=== PATIENT | male | born 1960 | race Caucasian/White ===

== ENCOUNTER 2016-08-28 09:58 | Emergency (ER) ==
[2016-08-28] MEDS ORDERED: LASIX PO ONE (10:34)
[2016-08-28] MEDS ORDERED: CATAPRES PO ONE (10:34)
--- NOTE | 2016-08-28 10:36 | PROVIDER DOCUMENTATION ---
HPI-General Adult - General Source: patient, family - History of Present Illness -Gen Adult Nature of Presenting Problems: Pt is 56 y/o M presents to the ED with elevated BP. Pt states BP was high at work two days ago. Pt states having a TORRES for one week now. Pt states having N this am. Pt states 2 episodes of V. Pt denies kidney failure. Location of Pain/Injury: reports: head Pain Radiation: reports: no radiation Quality of Pain: reports: aching Severity: reports: mild Onset/Duration: reports: 1 week ago Timing: reports: still present, intermittent Context/Activities at Onset: reports: light activity Modifying Factors: improves with: nothing Associated Symptoms: reports: headaches, nausea, vomiting. denies: anxiety, arm pain, back/neck pain, chest pain, constipation, cough, diaphoresis, diarrhea , dizziness, EENT symptoms, fatigue, fever/chills, genitourinary problems, heartburn, joint pain, loss of appetite, malaise, muscle aches, sinus congestion /drainage, rash, seizure, shortness of breath, sensory/motor loss, pain with inspiration, swelling/mass in abdomen, syncope, weakness, trouble walking Similar Symptoms Previously?: Yes Recently seen or treated by another doctor?: No <Betsy Cooper - Last Filed: 08/28/16 13:52> <Isai Ly - Last Filed: 08/28/16 13:57> - General Chief Complaint: B/P Problems Stated Complaint: NAUSEA/HEADACHE Time Seen by Provider: 08/28/16 10:30 Allergies/Adverse Reactions: Patient Allergies Allergy/AdvReac Type Severity Reaction Status Date / Time No Known Allergies Allergy Verified 08/28/16 10:20 Home Medications: Home Medication List Medication Instructions Recorded Confirmed Last Taken Type Acetaminophen with Codeine 1 each PO Q4H PRN PRN #20 tablet 08/28/16 Unknown Rx [Tylenol with Codeine #3] Amlodipine [Norvasc] 5 mg PO DAILY #30 tablet 08/28/16 Unknown Rx Lisinopril 20 mg PO DAILY #30 tablet 08/28/16 Unknown Rx Review of Systems - Adult - REVIEW OF SYSTEMS - ADULT Constitutional: denies: chills, fever Eyes: denies: blurred vision, double vision Ears, Nose, Mouth & Throat: denies: ear pain, nose pain, throat pain Cardiovascular: denies: chest pain, heart murmur, irregular heart rate Respiratory: denies: cough, shortness of breath, wheezing Gastrointestinal: reports: nausea, vomiting. denies: abdominal pain, diarrhea Genitourinary: denies: dysuria, hematuria Musculoskeletal: denies: bone pain, joint pain, neck pain Integumentary: denies: hives, itching Neurological: reports: headache/migraines (TORRES). denies: dizziness/vertigo Psychiatric: reports: no symptoms reported Endocrine: reports: no symptoms reported Hematologic/Lymphatic: reports: no symptoms reported Allergic/Immunologic: reports: no symptoms reported All Other Systems: Reviewed and Negative <Betsy Cooper - Last Filed: 08/28/16 13:52> Past History - Adult - PAST MEDICAL HISTORY-ADULT Review of Records: reports: Nursing Assessment Review, Medications Reviewed, Social history reviewed & non-contributory. Major Childhood Illnesses: reports: denies history Cardiovascular: reports: HTN Respiratory: reports: denies history Gastrointestinal: reports: denies history Obstetrical/Gynecological: reports: denies history Genitourinary: reports: denies history Musculoskeletal: reports: denies history Neurological: reports: denies history Endocrine/Immune: reports: denies history Other Conditions: reports: denies history - PRIOR SURGERIES/PROCEDURES Surgical/Procedure History: reports: appendectomy - IMMUNIZATION STATUS Childhood Immunizations: See Nurse Assessment Flu Vaccine: See Nurse Assessment - FAMILY HISTORY Family History: reviewed, not pertinent - SOCIAL HISTORY Smoking: cigarettes, greater than 1 pack/day Provider spent 3-5 mins advising pt. on dangers of tobacco.: Discussed manners to quit use, and f/u contacts for add'l counseling. Substance Use: denies Living Situation: family <Betsy Cooper - Last Filed: 08/28/16 13:52> Physical Exam-General - PHYSICAL EXAM-ADULT Initial Vital Signs Reviewed: Yes - CONSTITUTIONAL General Appearance: appears well, alert, no apparent distress - EYES Eyes: PERRL/EOMI, pink conjunctivae, fundi clear, no AV nicking - HEAD, EARS, NOSE, MOUTH & THROAT HENMT: normocephalic/atraumatic, moist mucous membranes, normal ENT inspection, TMs normal, pharynx normal - NECK Neck: non-tender, full range of motion, supple, normal inspection - RESPIRATORY Respiratory: chest non-tender, lungs clear, normal breath sounds, no pleuratic chest pain, no respiratory distress, no accessory muscle use - CARDIOVASCULAR Cardiovascular: normal peripheral pulses, regular rate, rhythm, no edema, no gallop, no JVD, no murmur - GASTROINTESTINAL (ABDOMEN) Abdominal Exam: normal bowel sounds, non tender, soft, no organomegaly, no pulsatile mass - LYMPHATIC Lymphatic: no adenopathy - MUSCULOSKELETAL Back Exam: normal inspection, no CVA tenderness, no vertebral tenderness Extremity: normal range of motion, non-tender, normal gait, normal inspection, no calf tenderness, normal capillary refill, pelvis stable, pedal edema ( bilateral) - SKIN Integumentary: normal color, normal turgor, warm/dry - NEUROLOGIC Neurologic: grossly normal - PSYCHIATRIC Psych/Mental Status: normal mood/affect, oriented x 3 <Betsy Cooper - Last Filed: 08/28/16 13:52> Progress - PLAN OF CARE/RESULTS Progress/Plan/Lab Results: Orders Category Date Time Status cxr [CHEST-2 VIEWS] [RAD] Stat Exams 08/28/16 10:32 Ordered CBC WITH DIFF [HEME] Stat Lab 08/28/16 10:31 Ordered COMPREHENSIVE METABOLIC PANEL [CHEM] Stat Lab 08/28/16 10:31 Ordered UA [URINALYSIS DIPSTICK ONLY PL] [URINALYSIS] Stat Lab 08/28/16 10:31 Uncollected Clonidine [Catapres] Med 08/28/16 10:34 Discontinued 0.2 mg PO NOW ONE Furosemide [Lasix] Med 08/28/16 10:34 Discontinued 40 mg PO NOW ONE EKG [EKG] Routine Ther 08/28/16 10:32 Ordered Vital Signs - 24 hr 08/28/16 08/28/16 10:16 10:31 Temperature 97.4 F L Pulse Rate 61 Respiratory 17 Rate Blood Pressure 193/105 194/107 O2 Sat by Pulse 99 Oximetry Laboratory Tests 08/28/16 08/28/16 08/28/16 11:02 11:02 11:30 WBC 8.42 RBC 4.79 Hgb 15.6 Hct 44.8 MCV 93.5 MCH 32.6 H MCHC 34.8 RDW Std Deviation 12.2 Plt Count 56 L MPV 11.2 H Immature Gran % (Auto) 0.1 Neut % (Auto) 60.6 Lymph % (Auto) 30.6 Turner % (Auto) 6.8 Eos % (Auto) 1.5 Baso % (Auto) 0.4 Immature Gran # (Auto) 0.01 Neut # (Auto) 5.10 Lymph # (Auto) 2.58 Turner # (Auto) 0.57 Eos # (Auto) 0.13 Baso # (Auto) 0.03 Sodium 138 Potassium 3.6 Chloride 101 Carbon Dioxide 25 Anion Gap 12 BUN 14 Creatinine 0.8 Estimated GFR/1.73 m2 > 60 BUN/Creatinine Ratio 18 Glucose 105 H Calculated Osmolality 277 Calcium 8.8 Total Bilirubin 0.70 AST 24 ALT 21 Alkaline Phosphatase 74 Total Protein 7.4 Albumin 4.3 Globulin 3.0 Albumin/Globulin Ratio 1.0 Urine Source VOIDED Urine Color YELLOW Urine Clarity CLEAR Urine pH 7.0 Ur Specific [place] 1.015 Urine Protein TRACE A Urine Ketones NEGATIVE Urine Blood NEGATIVE Urine Nitrite NEGATIVE Urine Bilirubin NEGATIVE Urine Urobilinogen NORMAL Urine WBC NEGATIVE Urine Glucose NEGATIVE - EKG 1 Time of EKG reading by physician:: 10:56 EKG Read and Signed by:: Isai Ly EKG Interpretation (*Must complete 3 of following elements*): Abnormal Rate: 55 Rhythm: sinus bradycardia Comments: nonspecific T wave abnormality; poor R wave progression - XRAY 1 XRAY: Bilateral XRAY Study: Chest Impression: Abnormal XRAY Interpretation: borderline cardiomegaly. <Betsy Cooper - Last Filed: 08/28/16 13:52> Departure <Betsy Cooper - Last Filed: 08/28/16 13:52> - Departure Time of Disposition Order: 13:54 Certified Medical Emergency: Emergent <Isai Ly - Last Filed: 08/28/16 13:57> - Departure DIAGNOSIS: HBP (high blood pressure) Qualifiers: Hypertension type: essential hypertension Qualified Code(s): I10 - Essential ( primary) hypertension Headache Qualifiers: Headache type: unspecified Disposition: HOME 01 Condition: Stable Additional Instructions: ED Follow Up Instructions: You have been treated by a care provider in the Emergency Department. These instructions are being provided to you so you can have an understanding of how to care for yourself upon discharge. Upon discharge from the Emergency Department, you are responsible for making arrangements for follow-up care by a physician of your choice. Take all prescribed medications as directed. Return to the Emergency Department immediately for any new or worsening symptoms. You may call the Physician Referral phone number at [phone] to obtain a list of Physicians who are taking new patients. Prescriptions: Acetaminophen with Codeine [Tylenol with Codeine #3] 1 each PO Q4H PRN PRN #20 tablet PRN Reason: Pain Lisinopril 20 mg PO DAILY #30 tablet Amlodipine [Norvasc] 5 mg PO DAILY #30 tablet Instructions: Migraine Headache, [id number] Attestation - Scribe Verification/Attestation Scribe:: Betsy Cooper Acting as Scribe for:: Isai Ly Scribe documention review:: This chart was documented by a scribe and accurately reflects the service the provider performed and the decisions made by the provider. <Betsy Cooper - Last Filed: 08/28/16 13:52> Physician Attestation
[2016-08-28 11:07] LABS: MANUAL DIFF NEEDED? NO
--- NOTE | 2016-08-28 11:11 | EKG Report ---
Test Performed on : 08/28/2016 10:56:06 AM Test Reason : emboli Blood Pressure : / mmHG Vent. Rate : 055 BPM Atrial Rate : 055 BPM P-R Int : 154 ms QRS Dur : 088 ms QT Int : 452 ms P-R-T Axes : 041 029 092 degrees QTc Int : 432 ms Sinus bradycardia. Nonspecific T wave abnormality Abnormal ECG When compared with ECG of 19-MAR-2015 21:52, Vent. rate has decreased BY 33 BPM T wave inversion now evident in Lateral leads Unconfirmed Result
[2016-08-28] MEDS ORDERED: LASIX IV ONE (11:24)
[2016-08-28 11:27] LABS: BASO% 0.4 % (0.0-0.8); EOS# 0.13 X1000 (0.0-0.7); EOS% 1.5 % (0.0-10.0); HEMATOCRIT 44.8 % (42.0-52.0); HEMOGLOBIN 15.6 g/dL (14.0-18.0); IMM GRAN# 0.01 X1000 (0.0-0.04); IMM GRAN% 0.1 % (0.0-0.5); LYMPH# 2.58 X1000 (1.2-3.4); LYMPH% 30.6 % (20.5-51.1); MCH 32.6 PG (27-31); MCHC 34.8 g/dL (33-37); MCV 93.5 FL (81-99); MONO# 0.57 X1000 (0.11-0.59); MONO% 6.8 % (1.7-9.3); MPV 11.2 FL (7.4-10.4); NEUT% 60.6 % (42.2-75.2); PLT 56 X1000 (130-400); RBC 4.79 XMIL (4.7-6.1)
[2016-08-28 11:41] LABS: AGAP 12; ALBUMIN 4.3 g/dL (3.5-5.0); ALKALINE PHOSPHATASE 74 U/L (32-122); BUN 14 mg/dL (8-22); CALCIUM 8.8 mg/dL (8.8-10.2); CHLORIDE 101 mmol/L (98-107); COSMO 277; GOT 24 U/L (10-34); GPT 21 U/L (10-44); POTASSIUM 3.6 mmol/L (3.5-5.1); SODIUM 138 mmol/L (136-145); TCO2 25 mmol/L (25-35); TOTAL PROTEIN 7.4 g/dL (6.3-8.3)
[2016-08-28 11:41] LABS: URINE SOURCE VOIDED
--- NOTE | 2016-08-28 11:52 | Diag Imaging Result Document ---
PROCEDURE NAME: CHEST-2 VIEWS - 08/28/2016 CHEST X-RAY, 2 VIEWS: COMPARISON: None. FINDINGS: There is borderline cardiomegaly. Pulmonary vascularity is normal. No focal infiltrates, pneumothorax, or pleural effusion. IMPRESSION: Borderline cardiomegaly.
[2016-08-28 12:14] LABS: BILIRUBIN URINE NEGATIVE (NEGATIVE); BLOOD URINE NEGATIVE (NEGATIVE); CLARITY CLEAR (CLEAR); COLOR YELLOW; GLUCOSE URINE NEGATIVE (NEGATIVE); LEUKOCYTES URINE NEGATIVE (NEGATIVE); NITRITE URINE NEGATIVE (NEGATIVE); PROTEIN URINE TRACE mg/dL (NEGATIVE); SP GRAVITY URINE 1.015; UROBILINOGEN URINE NORMAL
[2016-08-28] MEDS ORDERED: PHENERGAN PO ONE (13:15)
[2016-08-28] MEDS ORDERED: NORCO-5 PO ONE (13:16)
[2016-08-28] MEDS ORDERED: LABETALOL IV ONE (13:16)
[2016-08-28 13:54] VITALS: BP 162/92
== END 2016-08-28 14:11 | disposition home or self-care (01) ==
LOC: P.ED 09:58
DX: I10 Essential (primary) hypertension (principal); R51 Headache; R11.2 Nausea with vomiting, unspecified; R94.31 Abnormal electrocardiogram [ECG] [EKG]; R60.9 Edema, unspecified; F17.210 Nicotine dependence, cigarettes, uncomplicated; Z71.6 Tobacco abuse counseling
CPT/HCPCS: 36415; 71020; 80053; 81003; 85025; 93005; 96374; 96375; J1940

== ENCOUNTER 2016-08-29 14:29 | Emergency (ER) ==
--- NOTE | 2016-08-29 16:14 | PROVIDER DOCUMENTATION ---
HPI-Headache - General Chief Complaint: Headache Stated Complaint: N/V Time Seen by Provider: 08/29/16 16:11 Source: patient Allergies/Adverse Reactions: Patient Allergies Allergy/AdvReac Type Severity Reaction Status Date / Time No Known Allergies Allergy Verified 08/28/16 10:20 Home Medications: Home Medication List Medication Instructions Recorded Confirmed Last Taken Type Acetaminophen with Codeine 1 each PO Q4H PRN PRN #20 tablet 08/28/16 Unknown Rx [Tylenol with Codeine #3] Amlodipine [Norvasc] 5 mg PO DAILY #30 tablet 08/28/16 Unknown Rx Lisinopril 20 mg PO DAILY #30 tablet 08/28/16 Unknown Rx - History of Present Illness-Headache Nature of Presenting Problem: 56 yo M presents to the ER with complaint of TORRES. Was seen here yesterday, had elevated BP and was given blood pressure medication. Denies hx of migraines. States he has a family hx of aneurysms. Describes the headache as "all around his head" and then radiates down his back. Painful neck ROM. Onset/Duration: reports: 1 week ago Any recent trauma/injury?: reports: none Associated Symptoms: reports: headache, nausea, vomiting Review of Systems - Adult - REVIEW OF SYSTEMS - ADULT Constitutional: denies: chills, fever Eyes: reports: no symptoms reported Ears, Nose, Mouth & Throat: reports: no symptoms reported Cardiovascular: denies: chest pain, palpitations Respiratory: denies: cough, shortness of breath Gastrointestinal: reports: nausea, vomiting. denies: diarrhea Genitourinary: reports: no symptoms reported Musculoskeletal: reports: no symptoms reported Integumentary: reports: no symptoms reported Neurological: reports: headache/migraines. denies: dizziness/vertigo Psychiatric: reports: no symptoms reported Endocrine: reports: no symptoms reported Hematologic/Lymphatic: reports: no symptoms reported Allergic/Immunologic: reports: no symptoms reported All Other Systems: Reviewed and Negative Past History - Adult - PAST MEDICAL HISTORY-ADULT Review of Records: reports: Nursing Assessment Review, Medications Reviewed Major Childhood Illnesses: reports: denies history Cardiovascular: reports: HTN Respiratory: reports: denies history Gastrointestinal: reports: denies history Obstetrical/Gynecological: reports: denies history Genitourinary: reports: denies history Musculoskeletal: reports: denies history Neurological: reports: denies history Endocrine/Immune: reports: denies history Other Conditions: reports: denies history - PRIOR SURGERIES/PROCEDURES Surgical/Procedure History: reports: appendectomy - IMMUNIZATION STATUS Childhood Immunizations: See Nurse Assessment Flu Vaccine: See Nurse Assessment - FAMILY HISTORY Family History: reviewed, not pertinent - SOCIAL HISTORY Smoking: cigarettes Provider spent 3-5 mins advising pt. on dangers of tobacco.: Discussed manners to quit use, and f/u contacts for add'l counseling. Physical Exam- Neurological - Physical Exam-Neuro Initial Vital Signs Reviewed: Yes General Appearance: appears well, alert Eye Exam: bilateral eye: normal inspection, PERRL, EOMI HENMT: normocephalic/atraumatic, TM obscurred by cerumen Head Injury: no evidence of injury. negative: tenderness Neck: full range of motion (painful), supple Respiratory: no respiratory distress, no accessory muscle use Cardiovascular: normal peripheral pulses, regular rate, rhythm Extremity: normal range of motion, normal gait, normal inspection investigator Exam: normal hearing, normal speech, PERRL Neurologic: grossly normal, no motor/sensory deficits Integumentary: normal color, warm/dry Psych/Mental Status: normal mood/affect, normal thought content, normal thought process, oriented x 3 Progress - PLAN OF CARE/RESULTS Progress/Plan/Lab Results: Vital Signs Temp Pulse Resp BP Pulse Ox 08/29/16 15:22 98.1 F 68 18 186/96 96 08/29/16 14:42 99 F 63 18 163/92 96 No Known Allergies Allergy (Verified 08/28/16 10:20) Acetaminophen with Codeine [Tylenol with Codeine #3] 1 each PO Q4H PRN PRN #20 tablet 08/28/16 Amlodipine [Norvasc] 5 mg PO DAILY #30 tablet 08/28/16 Lisinopril 20 mg PO DAILY #30 tablet 08/28/16 Orders Category Date Time Status HEAD W/O CONTRAST [CT] Stat Exams 08/29/16 16:07 Taken Pt will be transferred to the [facility] ER Pt did not mention to Dr. Ly yesterday during his visit to the ER that he had a platelet problem and a family hx of aneurysms - CT/MRI 1 CT Study: Head Impression: Abnormal (subarachnoid bleed, per radiologist) - CONSULTS/PCP/HOSPITALIST Notification #1 *Consult/PCP/Hospitalist*: Transfer Center Time Discussed: 16:37 Departure - Departure Time of Disposition Order: 16:34 DIAGNOSIS: Subarachnoid bleed Disposition: [facility] 02 Certified Medical Emergency: Emergent Condition: Stable Referrals: None,PCP [Primary Care Provider] - Attestation - Scribe Verification/Attestation Scribe:: Susana Leigh Acting as Scribe for:: Isai Ly Scribe documention review:: This chart was documented by a scribe and accurately reflects the service the provider performed and the decisions made by the provider.
[2016-08-29] MEDS ORDERED: NICARDIPINE ONE (16:49)
[2016-08-29] MEDS ORDERED: SODIUM CHLORIDE ONE (16:49)
[2016-08-29] MEDS ORDERED: ZOFRAN ONE (16:56)
--- NOTE | 2016-08-29 16:56 | Diag Imaging Result Document ---
PROCEDURE NAME: HEAD W/O CONTRAST - 08/29/2016 CT HEAD WITHOUT CONTRAST: COMPARISON: None available. FINDINGS: There is acute intraventricular blood mainly in the left lateral ventricle throughout but also in the frontal aspect of the right lateral ventricle and the 3rd ventricle. There is also trace 4th ventricular blood. However, there is no evidence of significant hydrocephalus at this time. The left lateral ventricle is probably marginally larger than the right anteriorly. There is no evidence of acute ischemic infarct given the limited sensitivity of CT versus MRI. There is no midline shift identified. The surrounding soft tissues and bony structures are essentially unremarkable. IMPRESSION: 1. Acute intraventricular subarachnoid hemorrhage as described above. There is little if any hydrocephalus. However, the left lateral ventricle may be marginally larger than the right. 2. This critical result was reported to Dr. Isai Ly in the Emergency Department at 1630 hours. [facility]
[2016-08-29] MEDS ORDERED: ZOFRAN IV ONE (17:00)
[2016-08-29] MEDS ORDERED: NICARDIPINE IV SCH (17:00)
[2016-08-29] MEDS ORDERED: SODIUM CHLORIDE IV SCH (17:00)
[2016-08-29] MEDS ORDERED: PHENERGAN ONE (17:15)
[2016-08-29] MEDS ORDERED: SODIUM CHLORIDE 0.9% INJ ONE (17:15)
[2016-08-29] MEDS ORDERED: MORPHINE IV ONE (17:15)
[2016-08-29] MEDS ORDERED: PHENERGAN IV ONE (17:15)
[2016-08-29] MEDS ORDERED: MORPHINE ONE (17:15)
[2016-08-29 17:22] VITALS: BP 161/98
== END 2016-08-29 17:24 | disposition short-term general hospital (02) ==
LOC: P.ED 14:29
DX: I60.9 Nontraumatic subarachnoid hemorrhage, unspecified (principal); R51 Headache; R11.2 Nausea with vomiting, unspecified; M54.9 Dorsalgia, unspecified; M54.2 Cervicalgia; I10 Essential (primary) hypertension; F17.210 Nicotine dependence, cigarettes, uncomplicated; Z71.6 Tobacco abuse counseling
CPT/HCPCS: 70450; 96365; J2270; J2405; J2550; 99285-25

== ENCOUNTER 2018-12-30 19:37 | Inpatient (IN) ==
[2018-12-30] MEDS ORDERED: NS 1,000 ML IV ONE ×5 (19:50→21:38)
[2018-12-30 20:12] LABS: BILIRUBIN URINE NEGATIVE (NEGATIVE); BLOOD URINE 2+ (NEGATIVE); CLARITY SL. CLOUDY (CLEAR); COLOR YELLOW; KETONE URINE 3+(Large) mg/dL (NEGATIVE); LEUKOCYTES URINE NEGATIVE (NEGATIVE); NITRITE URINE NEGATIVE (NEGATIVE); PROTEIN URINE 1+(30 mg/dL) mg/dL (NEGATIVE); SP GRAVITY URINE 1.015; UROBILINOGEN URINE NORMAL
[2018-12-30 20:21] LABS: UR AMPHETAMINES QUAL NONE DETECTED (NONE DETECT); UR BARBITUATES QUAL NONE DETECTED (NONE DETECT); UR BENZODIAZEPIN QUAL NONE DETECTED (NONE DETECT); UR COCAINE QUAL NONE DETECTED (NONE DETECT); UR METHADONE QUAL NONE DETECTED (NONE DETECT); UR METHAMPHETAMINE QUAL NONE DETECTED (NONE DETECT)
[2018-12-30 20:22] LABS: UR CANNABINOIDS QUAL NONE DETECTED (NONE DETECT); UR OPIATES QUAL NONE DETECTED (NONE DETECT); UR OXYCODONE QUAL NONE DETECTED (NONE DETECT); UR PCP QUAL NONE DETECTED (NONE DETECT); UR PROPOXYPHENE QUAL NONE DETECTED (NONE DETECT); UR TCA QUAL NONE DETECTED (NONE DETECT)
[2018-12-30 20:31] LABS: URINE SOURCE CATH
[2018-12-30 20:32] LABS: URINE BACTERIA 1+ /HFP; URINE CAST NONE SEEN /LPF; URINE CRYSTAL NONE SEEN /HPF; URINE EPITHELIAL CELLS >10 /HPF (<10); URINE RBC <10 /HPF (<10); URINE WBC <10 /HPF (<10); URINE YEAST NONE SEEN /HPF
[2018-12-30 20:45] LABS: ALBUMIN 3.9 g/dL (3.5-5.0); CALCIUM 8.8 mg/dL (8.8-10.2); CREATININE 5.1 mg/dL (0.7-1.2); TOTAL BILIRUBIN 0.7 mg/dL (0.20-1.00); TOTAL PROTEIN 6.7 g/dL (6.3-8.3)
--- NOTE | 2018-12-30 20:52 | Diag Imaging Result Doc PS360 ---
CT HEAD W/O CONTRAST - 12/30/2018 INDICATION: unresp COMPARISON: 08/29/2016 FINDINGS: The ventricles and sulci are normal in size and contour. No intracranial mass or hemorrhage. The skull is intact. The sinuses mastoids and middle ears are clear. IMPRESSION: Negative exam. This exam was performed using automated exposure control, adjustment of mA or kV according to patient size, and/or use of iterative reconstruction technique Electronically signed by Daniel Schulte 12/30/2018 8:49 PM
[2018-12-30 20:55] LABS: BE -22.1 mmoll (-2.0-2.0); BLOOD TYPE VENOUS; HCO3-(ACT) 6.3 mmoll (22-27); PCO2(98.6) 33 mmHg (40-60); PO2(98.6) 29 mmHg (30-55); SAMPLE BLOOD; SAO2 55.9 % (40.0-85.0)
[2018-12-30] MEDS ORDERED: HUMULIN R IV ONE (21:01)
[2018-12-30 21:05] LABS: HEMATOCRIT 44.7 % (42.0-52.0); HEMOGLOBIN 15.3 g/dL (14.0-18.0); MCH 34.2 PG (27-31); MCHC 34.2 g/dL (33-37); RBC 4.47 XMIL (4.7-6.1); WBC 16.74 X1000 (4.8-10.8)
[2018-12-30 21:06] LABS: RDW 14.8 % (11.5-14.5)
[2018-12-30 21:07] LABS: PLT 51 X1000 (130-400)
[2018-12-30 21:08] LABS: IMM GRAN% 0.1 % (0.0-0.5); LYMPH% 3.6 % (20.5-51.1); MONO% 2.6 % (1.7-9.3); MPV 13.9 FL (7.4-10.4); NEUT% 10.5 % (42.2-75.2)
[2018-12-30] MEDS ORDERED: HUMULIN R (PARKWAY) 100 UNITS in NS 100 ML IV SCH (21:15)
--- NOTE | 2018-12-30 21:17 | PROVIDER DOCUMENTATION ---
This chart was entered by Tania Shay Scribe, acting as scribe for Diann Hampton MD. HPI-General Adult - General Chief Complaint: Unresponsive Stated Complaint: unresponsive Time Seen by Provider: 12/30/18 19:43 Source: EMS Allergies/Adverse Reactions: Patient Allergies Allergy/AdvReac Type Severity Reaction Status Date / Time No Known Allergies Allergy Verified 05/27/18 03:41 Home Medications: Home Medication List Medication Instructions Recorded Confirmed Last Taken Type Aspirin EC 81 mg PO DAILY 05/27/18 05/27/18 05/13/18 History Furosemide [Lasix] 40 mg PO DAILY 05/27/18 05/27/18 05/24/18 History Furosemide [Lasix] 40 mg PO DAILY #90 tablet 05/27/18 Unknown Rx Losartan Potassium 50 mg PO DAILY 05/27/18 05/27/18 05/24/18 History Losartan [Cozaar] 50 mg PO DAILY #90 tablet 05/27/18 Unknown Rx Metoprolol Succinate E.r. 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 ems sts pt sister called pd to do welfare check, pd couldn't open door b/c no landlord, came back when landlord was available and pt was found unresponsive under a fan. Pt hypotensive with EMS. pt fsbs greater than 500 with EMS and when checked upon arrival. 2044 tech sts that sister has not talked to pt since wednesday. Review of Systems - Adult - REVIEW OF SYSTEMS - ADULT ROS:: unobtainable per condition (pt minimally responsive, not speaking. found unresponsive.) Constitutional: reports: no symptoms reported Past History - Adult - PAST MEDICAL HISTORY-ADULT Review of Records: reports: Old Records Reviewed, Nursing Assessment Review, Medications Reviewed, Social history reviewed & non-contributory. Major Childhood Illnesses: reports: denies history Cardiovascular: reports: denies history Respiratory: reports: denies history Gastrointestinal: reports: denies history Obstetrical/Gynecological: reports: denies history Genitourinary: reports: denies history Musculoskeletal: reports: denies history Neurological: reports: denies history Endocrine/Immune: reports: Diabetes Other Conditions: reports: denies history - IMMUNIZATION STATUS Childhood Immunizations: See Nurse Assessment Flu Vaccine: See Nurse Assessment - FAMILY HISTORY Family History: reviewed, not pertinent Physical Exam-General - PHYSICAL EXAM-ADULT Initial Vital Signs Reviewed: Yes - CONSTITUTIONAL General Appearance: no apparent distress, lethargic, other (pt is minimally responsive). negative: appears well, alert, cachetic, combative - EYES Eyes: other (pupils nonreactive, dry corneas). negative: PERRL/EOMI, conjuctival exudate, EOM palsy - HEAD, EARS, NOSE, MOUTH & THROAT HENMT: normocephalic/atraumatic. negative: moist mucous membranes (dry mucous membranes, strong gag) - NECK Neck: supple - RESPIRATORY Respiratory: lungs clear, normal breath sounds - CARDIOVASCULAR Cardiovascular: normal peripheral pulses, regular rate, rhythm - GASTROINTESTINAL (ABDOMEN) Abdominal Exam: normal bowel sounds, non tender, soft - LYMPHATIC Lymphatic: no adenopathy - MUSCULOSKELETAL Back Exam: normal inspection Extremity: normal range of motion, no pedal edema, normal capillary refill. negative: deformity, erythema, inflammation Peripheral Pulses: carotid (R): 2+ - SKIN Integumentary: normal color, normal turgor. negative: warm/dry (cool to touch), erythema, swelling - NEUROLOGIC Neurologic: abnormal interpersonal communications professor II-XII, other (moves all extremities equally) - PSYCHIATRIC Psych/Mental Status: other (non-verbal, groans to stimulus). negative: normal mood/affect, normal thought content, normal thought process, oriented x 3, anxious, paranoid Progress - PLAN OF CARE/RESULTS Progress/Plan/Lab Results: Vital Signs - 8 hr 12/30/18 19:43 Temperature 93.0 F L Pulse Rate 91 H Respiratory Rate 20 Blood Pressure 69/45 O2 Sat by Pulse Oximetry 99 Laboratory Results - last 24 hr 12/30/18 19:44 POC Glucose 500 H Orders Category Date Time Status Riggs Cath Insertion ORDERED Care 12/30/18 19:49 Active IV Insertion ORDERED Care 12/30/18 19:47 Active IV Insertion ORDERED Care 12/30/18 19:50 Completed Nursing- Obtain EKG ONCE Care 12/30/18 19:47 Active Warming Stanford DIRECTED Care 12/30/18 19:53 Active CHEST-1 VIEW [RAD] Stat Exams 12/30/18 19:[address] HEAD W/CONTRAST [CT] Stat Exams 12/30/18 19:47 Ordered ALCOHOL BLOOD Stat Lab 12/30/18 19:49 Uncollected AMMONIA [CHEM] Stat Lab 12/30/18 19:49 Uncollected BLOOD CULTURE [BLDCUL] Stat Lab 12/30/18 19:47 Uncollected CBC WITH DIFF [HEME] Stat Lab 12/30/18 19:47 Ordered COMPREHENSIVE METABOLIC PANEL [CHEM] Stat Lab 12/30/18 19:47 Uncollected LACTATE, PLASMA [CHEM] Stat Lab 12/30/18 19:47 Uncollected TROPONIN T Stat Lab 12/30/18 19:[address] W/POSS RFLX CULT [URINALYSIS] Stat Lab 12/30/18 19:47 Uncollected URINE DRUG SCREEN PL Stat Lab 12/30/18 19:54 [address] BLOOD GAS [address] [RESP] Routine Lab 12/30/18 19:49 Ordered 0.9% Sodium Chloride Inj [Ns] 1,000 ml Med 12/30/18 19:50 Active IV 999 mls/hr 0.9% Sodium Chloride Inj [Ns] 1,000 ml Med 12/30/18 19:50 Active IV 999 mls/hr EKG [EKG] Stat Ther 12/30/18 19:47 Ordered AMS with markedly dry mucous membranes and markedly elevated FS glucose. Hypotensive on arrival but responsive to IVF and immediately aggressively resuscitated with IVF. Will further evaluate for causes including but not limited to DKA, dehydration, ACS, ICH, CVA, TIA, electrolyte imbalance, infectious process Result Diagrams: 12/30/18 19:58 12/30/18 19:58 - REASSESSMENT Reassessment #1 Status: improving (BP improved to 100's systolic after 2L NS, opening eyes to voice and moans but still non-verbal.) Reassessment #2 Status: improving (marked hyperglycemia likely due to DKA with associated hyperkalemia and acidosis. Doubt infectious process. Continued aggressive fluid hydration and insulin gtt started. Will admit to [facility] as we do not have an ICU beds available here today. Discussed case with Dr. Barry, Hospitalist at [facility] who accepts pt in transfer for admission) - EKG 1 Time of EKG reading by physician:: 19:43 EKG Read and Signed by:: Diann Hampton EKG Interpretation (*Must complete 3 of following elements*): Abnormal Rate: 83 (prolonged qt ) Rhythm: NSR Shannon: normal QRS: LBB (incomplete) KS Interval: normal ST Wave: normal - CT/MRI 1 CT Study: Head Impression: Normal, See EMR Report ( CT HEAD W/O CONTRAST - 12/30/2018 INDICATION: unresp COMPARISON: 08/29/2016 FINDINGS: The ventricles and sulci are normal in size and contour. No intracranial mass or hemorrhage. The skull is intact. The sinuses mastoids and middle ears are clear. IMPRESSION: Negative exam. This exam was performed using automated exposure control, adjustment of mA or kV according to patient size, and/or use of iterative reconstruction technique Electronically signed by Daniel Schulte 12/30/2018 8:49 PM) - CONSULTS/PCP/HOSPITALIST Notification #1 *Consult/PCP/Hospitalist*: Dr. Barry/Hospitalist Time Discussed: 21:06 Consult Disposition: Admit (will admit pt to [facility]) Departure - Departure Date of Disposition Decision: 12/30/18 Time of Disposition Decision: 21:16 DIAGNOSIS: Dehydration, Encephalopathy acute DKA (diabetic ketoacidoses) Qualifiers: Diabetes mellitus type: other specified (including VIVIAN) Diabetes mellitus complication detail: with coma Qualified Code(s): E13.11 - Other specified diabetes mellitus with ketoacidosis with coma Disposition: ADMITTED INPATIENT 09 Certified Medical Emergency: Emergent Condition: Serious - Critical Care Note This patient required my direct & personal management of CC.: Yes Total Time (mins): 60 Critical Care Statement: This patient required my direct personal management to treat or rule out processes, the absence of which, could potentiallly result in sudden, clinically significant life or limb threatening deterioration. Attestation - Physician/ AMIE Attestation Patient care was provided by Advanced Practice Provider:: No The physician spent face to face time with patient:: Yes Advanced Practice Provider documentation review:: Supervising physician onsite and consulted in the evaluation and care of this patient. The physician did have a face to face encounter with the patient. This chart was documented by the indicated scribe, (Tania Shay, Stefani) and accurately reflects the services I performed and decisions made by me, Diann Hampton MD, as attested by the provider's signature.
--- NOTE | 2018-12-30 22:12 | Diag Imaging Result Doc PS360 ---
CHEST-1 VIEW - 12/30/2018 INDICATION: ams COMPARISON: 05/27/2018 FINDINGS: Stable sternotomy wires. Lung volumes are severely low. No infiltrates or edema. Heart size is top normal. IMPRESSION: No definite acute disease. Electronically signed by Daniel Schulte 12/30/2018 10:10 PM
[2018-12-30] MEDS ORDERED: HUMULIN R 100 UNIT in NS 100 ML IV SCH (23:00)
[2018-12-31] MEDS ORDERED: D50W SYRINGE IV PRN (00:04)
[2018-12-31] MEDS ORDERED: D5 1/2 NS 1,000 ML IV PRN (00:04)
[2018-12-31] MEDS ORDERED: HUMULIN R IV ONE (00:04)
[2018-12-31] MEDS ORDERED: MAGNESIUM SULFATE 2 GM/S.W.I. 2 GM/50 ML IVPB IV PRN (00:04)
[2018-12-31] MEDS ORDERED: CALCIUM GLUCONATE IV PUSH ONE (00:09)
[2018-12-31] MEDS ORDERED: ALBUTEROL 0.5% INH CONC FOR HYPERKALEMIA INH ONE (00:13)
[2018-12-31 00:56] LABS: ALLEN TEST YES; BLOOD TYPE ARTERIAL; HCO3-(ACT) 7.7 mmoll (20.0-26.0); METHB 1.4 % (0.0-1.5); O2(CT) 20.9 mL/dL (15.0-23.0); PO2(98.6) 104 mmHg (60-100); SAMPLE BLOOD; SAO2 99.2 % (95.0-100.0); THB 15.4 g/dL (11.5-17.4)
[2018-12-31 00:58] LABS: MODALITY CANNULA; PCO2(98.6) 17 mmHg (35-45); pH(98.6) 7.11 (7.35-7.45)
[2018-12-31 01:00] LABS: HEMOGLOBIN A1C 15.9 % (4.8-6.0)
--- NOTE | 2018-12-31 01:20 | EKG Report ---
Test Performed on : 12/31/2018 00:09:29 AM Test Reason : EVAL Blood Pressure : / mmHG Vent. Rate : 110 BPM Atrial Rate : 110 BPM P-R Int : 150 ms QRS Dur : 094 ms QT Int : 394 ms P-R-T Axes : 051 037 101 degrees QTc Int : 533 ms Sinus tachycardia. Nonspecific ST and T wave abnormality Prolonged QT Abnormal ECG When compared with ECG of 27-MAY-2018 03:23, Nonspecific T wave abnormality now evident in Inferior leads Confirmed by Dillon Marshall MD ([id number]) on 01/01/2019 8:39:08 PM
[2018-12-31 01:30] LABS: ACETONE SERUM MODERATE (NEGATIVE)
[2018-12-31 01:45] LABS: AMYLASE 1002 U/L (20-200); CALCIUM 8.8 mg/dL (8.8-10.2); CREATININE 4.6 mg/dL (0.7-1.2); LIPASE 2191 U/L (13-60); MAGNESIUM 2.4 mg/dL (1.5-2.7); PHOSPHORUS 1.1 mg/dL (2.7-4.5); POTASSIUM 3.3 mmol/L (3.5-5.1)
[2018-12-31] MEDS: NS 1,000 ML IV SCH ×2 (02:12→08:46)
[2018-12-31 02:29] LABS: UR AMPHETAMINES QUAL NONE DETECTED (NONE DETECT); UR BARBITUATES QUAL NONE DETECTED (NONE DETECT); UR BENZODIAZEPIN QUAL NONE DETECTED (NONE DETECT); UR CANNABINOIDS QUAL NONE DETECTED (NONE DETECT); UR COCAINE QUAL NONE DETECTED (NONE DETECT); UR METHADONE QUAL NONE DETECTED (NONE DETECT); UR OPIATES QUAL NONE DETECTED (NONE DETECT); UR OXYCODONE QUAL NONE DETECTED (NONE DETECT); UR PCP QUAL NONE DETECTED (NONE DETECT)
[2018-12-31] MEDS ORDERED: NS 1,000 ML IV ONE (03:15)
[2018-12-31] MEDS ORDERED: POTASSIUM CHLORIDE 20 MEQ/SWI 20 MEQ/100 ML IVPB IV ONE ×3 (03:17→22:59)
[2018-12-31] MEDS: HUMULIN R 100 UNIT in NS 100 ML IV SCH ×4 (04:01→14:03)
--- NOTE | 2018-12-31 04:41 | HISTORY AND PHYSICAL ---
PRIMARY CARE PHYSICIAN: Unknown. CHIEF COMPLAINT: Altered mental status, unresponsive. HISTORY OF PRESENTING ILLNESS: A 57-year-old male with a history of diabetes mellitus type 2, coronary artery disease, WI, CHF, intracranial bleed, thrombocytopenia and hypertension was brought to the emergency department due to patient being found unresponsive. Apparently, EMS stated that the patient's sister called to do a welfare check. However, they could not open the door. They later came when the landlord was there and found the patient unresponsive under a fan. They checked his blood glucose and it was greater than 500. Patient was initially seen at [facility]. He was found to be in DKA and subsequently due to lack of ICU beds he was transferred to [facility] for further evaluation and management. At the time of my examination, patient is moderately altered and not much history could be obtained from him and most of the history is obtained from his previous records and recent ER charting. PAST MEDICAL HISTORY: Includes diabetes mellitus type 2, WI, coronary artery disease, CHF, intracranial bleed, thrombocytopenia and hypertension. PAST SURGICAL HISTORY: Coronary artery bypass, appendectomy. ALLERGIES: No known drug allergies. CURRENT MEDICATIONS: Nursing staff will reconcile. SOCIAL HISTORY: He is a former smoker. No history of alcohol or illicit drug use. FAMILY HISTORY: No history of coronary artery disease. REVIEW OF SYSTEMS: Unable to obtain. PHYSICAL EXAMINATION: GENERAL: The patient is moderately confused. VITAL SIGNS: Temperature 93.0 degrees, pulse 91, respirations 20, blood pressure 69/45. HEENT: Atraumatic, normocephalic. NECK: No masses. CHEST: Clear to auscultation. CARDIOVASCULAR: Regular rate and rhythm. ABDOMEN: Soft, positive bowel sounds. EXTREMITIES: No edema. NEUROLOGIC: He is awake, but moderately altered. GENITOURINARY: No bladder distention. SKIN: Warm. LABORATORIES AND STUDIES: WBC 16.74, hemoglobin 15.3, hematocrit 44.7, platelets 51,000. Blood gas shows a pH of 7.01. Sodium 131, potassium 7.0, chloride 87, CO2 is 6, BUN is 51, creatinine is 5.1, glucose is 1369. Urine shows +3 ketones. ASSESSMENT: A 57-year-old male with a history of diabetes mellitus type 2, coronary artery disease, thrombocytopenia and hypertension, who was brought to the emergency department due to patient being unresponsive. He was evaluated in the emergency department at [facility] and found to be in DKA. Patient was subsequently transferred to [facility] due to lack of ICU beds there. 1. Altered mental status/unresponsive. 2. Diabetic ketoacidosis. 3. Hypotension. 4. Acute kidney injury. 5. Hyperkalemia. 6. Thrombocytopenia. 7. Coronary artery disease. PLAN: 1. The patient is admitted to ICU. 2. Continue with neuro checks. 3. Put patient on insulin drip per DKA protocol. 4. Continue with IV fluids and monitor renal function. 5. We will give patient calcium gluconate and albuterol for his hyperkalemia. 6. We will monitor his renal function. 7. Put patient on DVT prophylaxis with SCD and avoid anticoagulation due to previous intracranial hemorrhage. 8. Patient condition is guarded. 9. We will continue to follow, and reassess and make further recommendation based on patient's clinical course. cc: Joselito Barry MD
[2018-12-31 05:24] LABS: CALCIUM 8.8 mg/dL (8.8-10.2); CREATININE 5.2 mg/dL (0.7-1.2); MAGNESIUM 2.2 mg/dL (1.5-2.7)
[2018-12-31 05:34] LABS: POTASSIUM 2.4 mmol/L (3.5-5.1)
[2018-12-31 05:35] LABS: PHOSPHORUS 0.5 mg/dL (2.7-4.5)
[2018-12-31] MEDS ORDERED: SODIUM PHOSPHATE 30 MMOL in NS 250 ML IV ONE (05:48)
[2018-12-31 08:33] LABS: ALLEN TEST YES; BE -17.1 mmoll (-3.0-3.0); BLOOD TYPE ARTERIAL; HCO3-(ACT) 11.6 mmoll (20.0-26.0); METHB 1.3 % (0.0-1.5); O2(CT) 18.2 mL/dL (15.0-23.0); O2HB 96.6 % (95.0-99.0); PO2(98.6) 111 mmHg (60-100); SAMPLE BLOOD; SAO2 99.5 % (95.0-100.0); THB 13.3 g/dL (11.5-17.4); pH(98.6) 7.24 (7.35-7.45)
[2018-12-31 08:35] LABS: MODALITY CANNULA; PCO2(98.6) 19 mmHg (35-45)
[2018-12-31] MEDS: MAXIPIME 1 GM in NS 50 ML IV SCH (08:46)
[2018-12-31 09:02] LABS: BASO# 0.01 X1000 (0.0-0.2); BASO% 0.1 % (0.0-0.8); EOS# 0.01 X1000 (0.0-0.7); EOS% 0.1 % (0.0-10.0); HEMATOCRIT 36.6 % (42.0-52.0); HEMOGLOBIN 13.1 g/dL (14.0-18.0); IMM GRAN# 0.05 X1000 (0.0-0.04); IMM GRAN% 0.5 % (0.0-0.5); LYMPH# 1.19 X1000 (1.2-3.4); LYMPH% 12.6 % (20.5-51.1); MCH 33.1 PG (27-31); MCHC 35.8 g/dL (33-37); MCV 92.4 FL (81-99); MONO# 1.59 X1000 (0.11-0.59); MONO% 16.8 % (1.7-9.3); NEUT# 6.63 X1000 (1.4-6.5); NEUT% 69.9 % (42.2-75.2); RBC 3.96 XMIL (4.7-6.1); RDW 13.9 % (11.5-14.5); WBC 9.48 X1000 (4.8-10.8)
[2018-12-31 09:12] LABS: UR CREAT RANDOM < 4.2 mg/dL (14-26); UR PROT RANDOM < 4.0 mg/dL; UR SODIUM < 10 mmoll
[2018-12-31 09:31] LABS: BANDS 12 % (0-1); LYMPHS 20 % (21-51); MONO 10 % (1-9); SEGS 58 % (42-75)
[2018-12-31 09:37] LABS: CREATININE 5.3 mg/dL (0.7-1.2); MAGNESIUM 1.9 mg/dL (1.5-2.7); PHOSPHORUS 0.5 mg/dL (2.7-4.5); POTASSIUM 2.5 mmol/L (3.5-5.1)
[2018-12-31 09:44] LABS: PLT 107 X1000 (130-400)
[2018-12-31] MEDS: POTASSIUM CHLORIDE 20 MEQ/SWI 20 MEQ/100 ML IVPB IV SCH ×2 (10:04→12:06)
--- NOTE | 2018-12-31 12:24 | Diag Imaging Result Doc PS360 ---
US ABDOMEN-COMPLETE - 12/31/2018 INDICATION: pancreatitis/renal failure COMPARISON: None FINDINGS: The exam is technically challenging due to the patient's condition. The liver is diffusely fatty. There is a tiny polyp or nonshadowing stone in the gallbladder measuring about 4 mm. No biliary dilation. Common bile duct measures 4 mm. The pancreas is mostly obscured. There our couple of cysts of the right kidney measuring up to 6.8 cm. The left kidney is normal. Renal sizes are normal. The right kidney measures 11.9 x 5.6 x 6.2 cm. The left kidney measures 12 x 5.3 x 6 cm. No hydronephrosis. The spleen is normal. The spleen measures about 11 x 4 cm. Aorta, IVC, and main portal vein are patent. IMPRESSION: 1. Pancreas is mostly obscured. 2. Significant fatty liver. 3. There are a couple of right renal cysts, one of which is relatively large. 4. Tiny polyp or nonshadowing stone of the gallbladder likely of no significance. Electronically signed by Daniel Schulte 12/31/2018 12:22 PM
[2018-12-31 12:56] LABS: CALCIUM 9.1 mg/dL (8.8-10.2); CREATININE 5.2 mg/dL (0.7-1.2); MAGNESIUM 1.8 mg/dL (1.5-2.7); PHOSPHORUS 0.4 mg/dL (2.7-4.5); POTASSIUM 2.8 mmol/L (3.5-5.1)
[2018-12-31] MEDS ORDERED: POTASSIUM PHOSPHATE 20 MMOL in NS 250 ML IV ONE (13:57)
[2018-12-31] MEDS ORDERED: D5 1/2 NS 1,000 ML IV SCH (14:15)
[2018-12-31 16:43] LABS: ALLEN TEST YES; BE -12.4 mmoll (-3.0-3.0); BLOOD TYPE ARTERIAL; HCO3-(ACT) 15.2 mmoll (20.0-26.0); METHB 1.4 % (0.0-1.5); MODALITY CANNULA; O2(CT) 18.4 mL/dL (15.0-23.0); PCO2(98.6) 26 mmHg (35-45); PO2(98.6) 92 mmHg (60-100); SAMPLE BLOOD; THB 13.6 g/dL (11.5-17.4); pH(98.6) 7.29 (7.35-7.45)
[2018-12-31 16:43] LABS: CALCIUM 9.2 mg/dL (8.8-10.2); CREATININE 4.9 mg/dL (0.7-1.2); MAGNESIUM 1.7 mg/dL (1.5-2.7); PHOSPHORUS 0.9 mg/dL (2.7-4.5)
[2018-12-31 21:07] LABS: CALCIUM 8.8 mg/dL (8.8-10.2); CREATININE 5.1 mg/dL (0.7-1.2); MAGNESIUM 1.8 mg/dL (1.5-2.7); PHOSPHORUS 2.7 mg/dL (2.7-4.5); POTASSIUM 4.5 mmol/L (3.5-5.1)
[2018-12-31] MEDS: LOPRESSOR IV SCH (21:10)
[2018-12-31] MEDS: D5W 1,000 ML IV SCH (21:10)
[2019-01-01 01:19] LABS: CALCIUM 8.9 mg/dL (8.8-10.2); CREATININE 5.5 mg/dL (0.7-1.2); MAGNESIUM 1.7 mg/dL (1.5-2.7); POTASSIUM 3.9 mmol/L (3.5-5.1)
[2019-01-01] MEDS ORDERED: MAGNESIUM SULFATE 2 GM/S.W.I. 2 GM/50 ML IVPB IV ONE ×2 (01:52→01:54)
[2019-01-01] MEDS: LOPRESSOR IV SCH ×4 (02:12→19:49)
[2019-01-01] MEDS: D5W 1,000 ML IV SCH ×2 (03:01→05:48)
[2019-01-01] MEDS ORDERED: LABETALOL IV ONE (03:15)
[2019-01-01] MEDS: HUMULIN R 100 UNIT in NS 100 ML IV SCH ×2 (03:31→22:18)
[2019-01-01 04:32] LABS: ALLEN TEST YES; BE -11.8 mmoll (-3.0-3.0); BLOOD TYPE ARTERIAL; HCO3-(ACT) 15.7 mmoll (20.0-26.0); METHB 1.5 % (0.0-1.5); O2(CT) 18.7 mL/dL (15.0-23.0); O2HB 96.3 % (95.0-99.0); PO2(98.6) 122 mmHg (60-100); SAMPLE BLOOD; SAO2 99.4 % (95.0-100.0); THB 13.7 g/dL (11.5-17.4); pH(98.6) 7.37 (7.35-7.45)
[2019-01-01 04:33] LABS: MODALITY CANNULA; PCO2(98.6) 19 mmHg (35-45)
[2019-01-01 05:13] LABS: BASO# 0.16 X1000 (0.0-0.2); BASO% 1.4 % (0.0-0.8); EOS# 0.05 X1000 (0.0-0.7); EOS% 0.4 % (0.0-10.0); IMM GRAN# 0.13 X1000 (0.0-0.04); IMM GRAN% 1.1 % (0.0-0.5); LYMPH# 1.43 X1000 (1.2-3.4); LYMPH% 12.6 % (20.5-51.1); MONO# 1.44 X1000 (0.11-0.59); MONO% 12.7 % (1.7-9.3); MPV 12.3 FL (7.4-10.4); NEUT% 71.8 % (42.2-75.2)
[2019-01-01 05:15] LABS: PLT 21 X1000 (130-400)
[2019-01-01 05:16] LABS: HEMATOCRIT 36.1 % (42.0-52.0); HEMOGLOBIN 13.1 g/dL (14.0-18.0); MCH 33.1 PG (27-31); MCHC 36.3 g/dL (33-37); MCV 91.2 FL (81-99); RBC 3.96 XMIL (4.7-6.1); RDW 14.6 % (11.5-14.5); WBC 11.31 X1000 (4.8-10.8)
[2019-01-01] MEDS ORDERED: MORPHINE IV ONE (05:18)
[2019-01-01] MEDS: SODIUM CHLORIDE 0.9% INJ SCH (05:48)
[2019-01-01] MEDS: NEXIUM IV SCH (06:03)
[2019-01-01 06:36] LABS: CALCIUM 8.5 mg/dL (8.8-10.2); CREATININE 5.4 mg/dL (0.7-1.2); MAGNESIUM 2.2 mg/dL (1.5-2.7); POTASSIUM 3.9 mmol/L (3.5-5.1)
[2019-01-01] MEDS ORDERED: POTASSIUM CHLORIDE 20 MEQ/SWI 20 MEQ/100 ML IVPB IV ONE (06:42)
--- NOTE | 2019-01-01 07:05 | PROGRESS NOTE ---
DATE: 12/31/2018 SUBJECTIVE: The patient is minimally responsive. He is currently on IV fluids and an insulin drip. OBJECTIVE: Vital Signs: Temperature is 99.3 degrees, blood pressure 153/81, heart rate 118, respirations 29, O2 saturation 97% on 2 L nasal cannula. Urine output 210. Intake 3.1 L. General: This is a morbidly obese male lying in bed, in no acute distress. HEENT: Head normocephalic, atraumatic. Heart: S1, S2 normal. Tachycardic. Lungs: Equal air entry bilaterally. No wheezing. No rales. No rhonchi. Abdomen: Hypoactive bowel sounds. Soft, nontender, nondistended. Extremities: No edema. No cyanosis. Neuro: The patient does not follow commands. He is very lethargic at this time. LABS: White blood cell count 9.4, hemoglobin 13, hematocrit 36, platelets 107,000. Sodium 154, potassium 3, chloride 124, CO2 of 12, BUN 54, creatinine 4.9. Glucose 289, phosphorus 0.9, magnesium 1.7, calcium 9.2. ABG with pH 7.29, pCO2 is 26, PO2 of 92, bicarb 15. Lipase 2191. Ammonia 65. Abdominal ultrasound shows fatty liver disease. ASSESSMENT AND PLAN: 1. Severe diabetic ketoacidosis. We will continue on the insulin drip and the current IV fluids as ordered. Once the anion gap closes, we will transition the patient to long-acting insulin plus sliding scale coverage. 2. Metabolic encephalopathy. This is likely secondary to the patient's underlying diabetic ketoacidosis. We will monitor for improvement. The head CT done on admission was negative. 3. Hyperammonemia. Will monitor this closely. The patient may require lactulose. 4. Acute pancreatitis. The patient is NPO and on IV fluids. Will monitor closely. 5. Hypokalemia. The patient is currently receiving potassium replacement. 6. Hypophosphatemia. The patient is currently receiving phosphorus replacement. 7. Acute kidney injury. Multifactorial. The patient's urine output has decreased over the last 12 hours. Nephrology has been consulted. We will continue with IV fluids and monitor the patient's urine output closely. Will avoid nephrotoxic agents. 8. Thrombocytopenia. Slightly improved. We will continue to monitor this closely. 9. Hypernatremia. We will adjust the patient's IV fluids. 10. Fatty liver disease. Aware. 11. Gastrointestinal prophylaxis. Will start the patient on Nexium. cc: Tameka Richards MD MTDD
--- NOTE | 2019-01-01 07:16 | Diag Imaging Result Doc PS360 ---
CHEST-PORTABLE - 01/01/2019 INDICATION: dyspnea COMPARISON: 12/30/2018 FINDINGS: Stable sternotomy wires. Stable cardiomegaly and pulmonary vascular congestion. There is worsening ill-defined interstitial infiltrate bilaterally compatible with pulmonary edema. This is most notable in the lower lobes. No large pleural effusion. IMPRESSION: Cardiomegaly. Worsening pulmonary edema. Electronically signed by Daniel Schulte 01/01/2019 7:14 AM
--- NOTE | 2019-01-01 07:34 | NEPHROLOGY CONSULTATION ---
DATE: 12/31/2018 REASON FOR CONSULTATION: Acidosis and acute kidney injury. ATTENDING PHYSICIAN: Dr. Richards. HISTORY OF PRESENT ILLNESS: Mr. Puri is a 57-year-old man who was brought in after he had a wellness visit by the police. He was found unresponsive, and it is not clear how long he had been in that state. Based on this, he was brought to the emergency room for evaluation and treatment. His initial blood pressure was 69/45. He was treated with appropriate initial volume resuscitation and empiric broad-spectrum antibiotics for presumed sepsis. His initial laboratory data found potassium of 7.0, serum bicarbonate of 6, with an anion gap of 38 and a glucose of 1369. He was treated with fluids as above, and also with IV insulin. He has had progressive improvement in his anion gap from 38 to 19. His hyperkalemia resolved, and he developed hypokalemia and hypophosphatemia. Both of these have been treated appropriately by the primary team. In this context, his creatinine has been essentially unchanged, 5.1 on presentation, 4.9 today. Our last creatinine in the system was 0.8 in 05/2018. We were asked to assist with his management. Urine output has been quite low, and he is net positive approximately 5 L. PAST MEDICAL HISTORY: Exceedingly limited. It is not even clear that he had a diagnosis of diabetes. HOME MEDICATIONS: Include losartan, metoprolol, furosemide, spironolactone, aspirin. ALLERGIES: None known. SOCIAL HISTORY: Otherwise not obtainable. FAMILY HISTORY: Otherwise not obtainable. REVIEW OF SYSTEMS: Otherwise not obtainable. PHYSICAL EXAMINATION: Vital Signs: Blood pressure 160/77, heart rate 119, respirations 28, temperature 99.3 degrees. General: He is a middle-aged man, minimally responsive, tachypneic, increased work of breathing. Skin: Warm and dry. HEENT: Conjunctivae are pink. Pupils are equal. Oropharynx is dry. Neck: Supple. Neck veins are not distended. Heart: Regular and tachycardic. Lungs: Equal and tachypneic. No crackles. Heart: Has a murmur lungs. Abdomen: Soft, nontender. Diminished bowel sounds. Extremities: No edema, clubbing, or cyanosis. IMPRESSION: Acute kidney injury. Presumably, ischemic acute tubular necrosis. Low urine output. Creatinine is stable, but with significant volume expansion. Likely dilutional. He does not meet criteria for dialysis today, but may well develop those criteria within the next 48 hours. I will change his intravenous fluids to D5, and continue this treatment until his anion gap is closed. Continue to replete potassium and phosphate as ordered. Antibiotics are dosed appropriately. No changes. cc: Parviz Ritter MD
[2019-01-01] MEDS: MAXIPIME 1 GM in NS 50 ML IV SCH (08:16)
[2019-01-01 08:57] LABS: INR 1.31; PROTIME 17.3 Seconds (11.0-16.0)
[2019-01-01 08:58] LABS: PTT 34.7 Seconds (22.3-41.8)
[2019-01-01 09:17] LABS: CALCIUM 8.4 mg/dL (8.8-10.2); CREATININE 5.7 mg/dL (0.7-1.2); MAGNESIUM 2.1 mg/dL (1.5-2.7); POTASSIUM 3.8 mmol/L (3.5-5.1)
[2019-01-01 11:36] LABS: BASO# 0.02 X1000 (0.0-0.2); BASO% 0.1 % (0.0-0.8); EOS# 0.05 X1000 (0.0-0.7); EOS% 0.3 % (0.0-10.0); HEMATOCRIT 35.9 % (42.0-52.0); IMM GRAN# 0.11 X1000 (0.0-0.04); IMM GRAN% 0.8 % (0.0-0.5); LYMPH# 1.86 X1000 (1.2-3.4); MCH 33.2 PG (27-31); MCHC 36.2 g/dL (33-37); MCV 91.8 FL (81-99); MONO# 1.97 X1000 (0.11-0.59); MONO% 13.8 % (1.7-9.3); NEUT# 10.29 X1000 (1.4-6.5); PLT 61 X1000 (130-400); RBC 3.91 XMIL (4.7-6.1); RETIC% 1.62 % (0.8-2.1); RETIC-HE 36.3 PG (28.2-36.6)
[2019-01-01 11:51] LABS: C REACTIVE PROT QUANT 323.65 mg/L (0.00-5.00)
[2019-01-01 13:00] LABS: CALCIUM 8.3 mg/dL (8.8-10.2); CREATININE 6.1 mg/dL (0.7-1.2); MAGNESIUM 2.2 mg/dL (1.5-2.7); POTASSIUM 4.1 mmol/L (3.5-5.1)
[2019-01-01 13:08] LABS: BANDS 30 % (0-1); LYMPHS 16 % (21-51); MONO 6 % (1-9); SEGS 48 % (42-75)
--- NOTE | 2019-01-01 15:07 | INFECTIOUS DISEASE CONSULT REP ---
DATE: 01/01/2019 CONCLUSION: The patient may have a urinary tract infection. RECOMMENDATIONS: I agree with treating the patient with cefepime. I have ordered a urine culture. DISCUSSION: The patient is unable provide a history. No family members present. He was found to be unresponsive and on the floor. He was admitted to the intensive care unit and is found out that he is in diabetic ketoacidosis. His CBC shows a white count of 14,500, hemoglobin 13, platelet count 61,000. Blood gases show a pH of 7.37, a PO2 of 122, and a pCO2 of 19. The creatinine is 6.1. GFR is 10. Alkaline phosphatase is 177. CK is 5065. Urinalysis showed bacteria but no white cells. Drug screen was negative. Chest x-ray shows cardiomegaly with pulmonary edema. Ultrasound of the abdomen showed a fatty liver and renal cysts. There was no evidence of cholecystitis. Initial blood cultures are sterile. Repeat blood cultures are pending. I was unable to obtain any information from the patient because he is obtunded and no family members present. The information I did obtain was from the computer. REVIEW OF SYSTEMS: Unable to obtain. PAST MEDICAL HISTORY: Diabetes mellitus, myocardial infarction, coronary artery disease, congestive heart failure, intracranial hemorrhage, thrombocytopenia, and hypertension. PAST SURGICAL HISTORY: Coronary artery bypass grafting, appendectomy. DRUG ALLERGIES: None known. HOME MEDICATIONS: Include Lasix, losartan, metoprolol and spironolactone. CT scan of the head was a negative exam. PHYSICAL EXAMINATION: Vital Signs: Temperature is 98.8 degrees, pulse 83, respirations 22, blood pressure is 129/75. Patient is 6 feet tall, weighs 228 pounds. General: This is an obese, middle-aged male. He is obtunded. He is breathing on his own. He did not respond to verbal stimuli. Head/eyes/ears/nose/throat: No drainage was noted from the nose or ears. I did not get a good look into his oral cavity. Neck: No meningismus. Lungs: Clear to auscultation. Cardiovascular: The heart rate is regular. Abdomen: Soft and nontender. Neurologic: The patient is obtunded as mentioned above. He did not respond to verbal stimuli. The patient does not have a tremor. Integument: No rash noted. Thank you for the consult. cc: Ki Alvarez MD MTDD
[2019-01-01 16:35] LABS: CALCIUM 8.3 mg/dL (8.8-10.2); CREATININE 6.2 mg/dL (0.7-1.2); MAGNESIUM 2.1 mg/dL (1.5-2.7); POTASSIUM 4.3 mmol/L (3.5-5.1)
--- NOTE | 2019-01-01 16:58 | PROGRESS NOTE ---
DATE: 01/01/2019 SUBJECTIVE: The patient remains minimally responsive. He is currently on a insulin drip per the DKA protocol. His urine output is very poor. He had 140 mL of urine output in the last 24 hours. OBJECTIVE: Vital Signs: Temperature 98.8 degrees, blood pressure 131/79, heart rate 82, respirations 22, O2 saturation is 96% on 2 L nasal cannula. Intake 4.6 L. Output 140 mL. General: This is a morbidly obese male lying in bed, in no acute distress. Head: Normocephalic, atraumatic. Heart: S1, S2 normal. Regular rate and rhythm. Lungs: Clear to auscultation bilaterally. No wheezing. No rales. No rhonchi. Abdomen: Positive bowel sounds. Soft, obese, nontender. Extremities: No edema. No cyanosis. No calf tenderness. Neurologic: The patient is lethargic. He does not follow commands. LABS: White blood cell count 14, hemoglobin 13, hematocrit 35, platelets 61,000. INR 1.3. Fibrinogen 545. D-dimer 6.6. ABG, pH 7.37, pCO2 19, PO2 122, bicarb 15. Sodium 147, potassium 4.1, chloride 117, CO2 12, BUN 66, creatinine 6.1, glucose 347, anion gap 18, calcium 8.3, phosphorus 4.1, magnesium 2.2, Total CK: 5065 Chest x-ray shows cardiomegaly with worsening pulmonary edema, mainly in the lower lobes. ASSESSMENT AND PLAN: 1. Severe diabetic ketoacidosis. The patient has an anion gap of 18. We will continue on the insulin drip until the anion gap closes then we will start the patient on long-acting insulin. 2. Acute kidney injury. The patient's urine output has decreased significantly. He has only put out 30 mL of urine in the last 8 hours. He also has a CK of 5,065. The patient has a positive fluid balance of 4.4 L. This was discussed with Dr. Ritter. We will discontinue the patient's IV fluids at this time and monitor closely. The patient will likely require renal replacement therapy soon. 3. Rhabdomyolysis. The patient was found unresponsive at home and it is unknown how long the patient was on the floor. We will continue to trend the CK. 4. Metabolic encephalopathy. Unchanged. Will continue to treat the underlying medical issues. 5. Acute pancreatitis. The patient is currently NPO. We will continue to monitor the lipase closely. 6. Thrombocytopenia. This is worse today. The patient's platelet count was noted to be 21,000. We will consult with hematology. 7. Leukocytosis. The patient's white blood cell count has increased. We will continue on cefepime. The patient has been seen by Dr. Alvarez. 8. Fatty liver disease. Aware. Hepatitis profile is currently pending. 9. Hypernatremia. Improved. We will continue to monitor closely. 10. Gastrointestinal prophylaxis. Continue on Nexium. 11. Disposition. The patient is critically ill with a high risk of mortality. cc: Tameka Richards MD [facility]TD[facility]
[2019-01-01 21:09] LABS: CALCIUM 8.5 mg/dL (8.8-10.2); POTASSIUM 4.2 mmol/L (3.5-5.1)
[2019-01-02 00:58] LABS: CALCIUM 8.5 mg/dL (8.8-10.2); CREATININE 6.7 mg/dL (0.7-1.2); MAGNESIUM 2.1 mg/dL (1.5-2.7); POTASSIUM 4.8 mmol/L (3.5-5.1)
[2019-01-02] MEDS: LOPRESSOR IV SCH ×4 (02:18→20:14)
[2019-01-02 04:30] LABS: ALLEN TEST YES; BE -14.1 mmoll (-3.0-3.0); BLOOD TYPE ARTERIAL; HCO3-(ACT) 13.9 mmoll (20.0-26.0); METHB 1.3 % (0.0-1.5); O2(CT) 20.5 mL/dL (15.0-23.0); O2HB 96.4 % (95.0-99.0); PCO2(98.6) 21 mmHg (35-45); PO2(98.6) 118 mmHg (60-100); SAMPLE BLOOD; SAO2 99.6 % (95.0-100.0); pH(98.6) 7.29 (7.35-7.45)
[2019-01-02 04:31] LABS: MODALITY CANNULA
[2019-01-02] MEDS: SODIUM CHLORIDE 0.9% INJ SCH (05:09)
[2019-01-02 05:44] LABS: BASO# 0.01 X1000 (0.0-0.2); BASO% 0.1 % (0.0-0.8); EOS# 0.03 X1000 (0.0-0.7); EOS% 0.2 % (0.0-10.0); HEMATOCRIT 35.7 % (42.0-52.0); HEMOGLOBIN 12.6 g/dL (14.0-18.0); IMM GRAN# 0.02 X1000 (0.0-0.04); IMM GRAN% 0.2 % (0.0-0.5); LYMPH# 1.58 X1000 (1.2-3.4); LYMPH% 12.8 % (20.5-51.1); MCH 32.8 PG (27-31); MCHC 35.3 g/dL (33-37); MONO% 11.4 % (1.7-9.3); MPV 14.3 FL (7.4-10.4); NEUT# 9.28 X1000 (1.4-6.5); NEUT% 75.3 % (42.2-75.2); RBC 3.84 XMIL (4.7-6.1); RDW 15.2 % (11.5-14.5); WBC 12.32 X1000 (4.8-10.8)
[2019-01-02 05:47] LABS: INR 1.26; PROTIME 16.8 Seconds (11.0-16.0)
[2019-01-02 05:48] LABS: PTT 37.6 Seconds (22.3-41.8)
[2019-01-02] MEDS: NEXIUM IV SCH (06:01)
[2019-01-02 06:03] LABS: ACETONE SERUM NEGATIVE (NEGATIVE)
[2019-01-02 06:15] LABS: CALCIUM 8.9 mg/dL (8.8-10.2); CREATININE 6.9 mg/dL (0.7-1.2); MAGNESIUM 2.1 mg/dL (1.5-2.7); POTASSIUM 4.6 mmol/L (3.5-5.1)
[2019-01-02 06:47] LABS: CK TOTAL 2712 U/L (24-204)
[2019-01-02 07:05] LABS: pH(98.6) 7.01 (7.32-7.43)
[2019-01-02 07:31] LABS: PLT 57 X1000 (130-400)
[2019-01-02 07:33] LABS: BANDS 16 % (0-1); EOS 2 % (1-10); LYMPHS 22 % (21-51); MONO 8 % (1-9); SEGS 50 % (42-75)
[2019-01-02] MEDS: MAXIPIME 1 GM in NS 50 ML IV SCH (08:25)
[2019-01-02 09:11] LABS: POTASSIUM 4.9 mmol/L (3.5-5.1)
[2019-01-02 09:12] LABS: CALCIUM 9.1 mg/dL (8.8-10.2); MAGNESIUM 2.2 mg/dL (1.5-2.7)
[2019-01-02 12:06] LABS: HEPATITIS PROFILE ACUTE SEE COMMENTS
[2019-01-02] MEDS ORDERED: LASIX IV ONE (12:14)
--- NOTE | 2019-01-02 12:32 | Diag Imaging Result Doc PS360 ---
EXAM: CHEST-PORTABLE 01/02/2019 HISTORY: dyspnea TECHNIQUE: AP portable at 1222 COMMENT: The inspiration is better than on 01/01/2019. There is increased hazy opacity in the lung bases which has actually improved since the previous study. IMPRESSION: Improved pulmonary edema. Electronically signed by Antonio Candelario 01/02/2019 12:29 PM
[2019-01-02 12:50] LABS: ALLEN TEST YES; BLOOD TYPE ARTERIAL; HCO3-(ACT) 13.2 mmoll (20.0-26.0); METHB 0.6 % (0.0-1.5); MODALITY PRB; O2(CT) 15.8 mL/dL (15.0-23.0); O2HB 96.7 % (95.0-99.0); PCO2(98.6) 24 mmHg (35-45); PO2(98.6) 80 mmHg (60-100); SAMPLE BLOOD; SAO2 99.8 % (95.0-100.0); THB 11.6 g/dL (11.5-17.4); pH(98.6) 7.25 (7.35-7.45)
[2019-01-02 13:04] LABS: CALCIUM 9.2 mg/dL (8.8-10.2); CREATININE 7.2 mg/dL (0.7-1.2); MAGNESIUM 2.5 mg/dL (1.5-2.7); POTASSIUM 5.2 mmol/L (3.5-5.1)
--- NOTE | 2019-01-02 14:00 | PROGRESS NOTE ---
DATE: 01/02/2019 SUBJECTIVE: The patient remains minimally responsive. He did develop some respiratory distress this afternoon, and his oxygen saturations dropped. He was placed on BiPAP. OBJECTIVE: Vital Signs: Temperature 99.5 degrees, blood pressure 146/90, heart rate 118 respirations 22, and O2 saturation 99% on BiPAP. General: This is a morbidly obese male lying in bed in no acute distress. HEENT: Head normocephalic and atraumatic. Heart: S1, S2 normal. Tachycardic. Lungs: Coarse breath sounds bilaterally. No wheezing. Abdomen: Slightly distended. Hypoactive bowel sounds. Extremities: 1+ edema in the lower extremities. Neurologic: The patient is minimally responsive. He does move his extremities. LABORATORY: White blood cell count 12, hemoglobin 12, hematocrit 35, and platelets 57,000. ABG pH 7.25, pCO2 24, PO2 80, bicarb 13, sodium 147, potassium 5.2, chloride 117, CO2 11, BUN 89, creatinine 7.2, glucose 298, and calcium 9.2. CK 2712. Lipase 366. Chest x-ray shows improved pulmonary edema. ASSESSMENT AND PLAN: 1. Acute hypoxemic respiratory failure. This is likely secondary to pulmonary edema. The patient is now on BiPAP. 2. Acute pulmonary edema. We will give the patient a dose of Lasix to see if the patient will make any urine. The patient will likely require dialysis for volume removal. 3. Acute kidney injury. The patient is not making urine. Dr. Ritter will be speaking to the family about initiating dialysis. 4. Rhabdomyolysis. Improved. We will continue to monitor the CK closely. 5. Diabetic ketoacidosis. The anion gap of 20. Continue on the insulin drip. 6. Thrombocytopenia. Improved. Hematology is following. 7. Acute pancreatitis. The patient remains NPO. The lipase is improved. 8. Leukocytosis. Improved. Continue on cefepime. Dr. Alvarez is following. 9. Fatty liver disease. Aware. 10. Gastrointestinal prophylaxis. Continue on Nexium. 11. Disposition. The patient is critically ill with a high risk of mortality. I discussed the patient's medical condition with the patient's sister, Rosa M Pate. cc: Tameka Richards MD [facility]
--- NOTE | 2019-01-02 14:55 | INFECTIOUS DISEASE PROGRESS NO ---
DATE: 01/02/2019 PRESENT ILLNESS: The patient has a leukocytosis which is gradually improving. I have not found a definite infection causing the leukocytosis. The patient does have an elevated lipase and amylase and thus he may have pancreatitis. This did not show up on the patient's abdominal ultrasound, however. MEDICATIONS: The patient is on cefepime. The dose has been modified because of the patient's renal failure. PHYSICAL EXAMINATION: Vital Signs: Temperature is 99.2 degrees, pulse 81, respirations 19, blood pressure is 143/85. General: This is an obese, middle-aged male. He is in no acute distress. Head, eyes, ears, nose, and throat: No drainage noted from the nose or ears. The patient did track with his eyes. Neck: No meningismus. Lungs: Clear to auscultation. Cardiovascular: Regular heart rate. Abdomen: Soft and nontender. Neurologic: The patient did open his eyes and he did track with them. He did not follow request to move his extremities. He does not have a tremor. LAB AND X-RAY: The patient's CBC today showed that the white count had decreased to 12,320, hemoglobin 12.6, and platelet count 57,000. Lipase initially was 2,191; today it is 366. The amylase today is 1,002. The blood gases show a pH of 7.29, a PO2 of 118, and a pCO2 of 21. The creatinine is 6.9. GFR is 8. The patient's CK has come down to 2,712. Blood and urine cultures are negative thus far. ASSESSMENT AND PLAN: At this time I do not think the patient has an active infection. The patient does have leukocytosis, but it is improving and it may be secondary to pancreatitis. My plan is to discontinue cefepime and see if the patient has a fever or if the white count increases. COMORBIDITIES: The patient is a diabetic. He has congestive heart failure. He has had an intracranial hemorrhage. cc: Ki Alvarez MD
--- NOTE | 2019-01-02 15:14 | NEPHROLOGY PROGRESS NOTE ---
DATE: 01/02/2019 TIME SEEN: 0715 SUBJECTIVE: Mr. Puri is resting in bed. He remains minimally responsive. He is currently on and off insulin drip for DKA protocol. Decreased urinary output with elevated BUN and creatinine. OBJECTIVE: His most recent vital signs temperature 99.3 degrees, blood pressure 143/105, heart rate 86, respirations are 22, he is on 2 L nasal cannula. Last recorded saturation is 100%, he has had 891 in, he has had 100 mL out to urine output, patient is currently 8 L positive over the last 48 to 72 hours. LABS: Sodium is 151, potassium is 4.9, chlorides are 120, CO2 is 10, BUN is 85, creatinine is up to 7, glucose is 316, patient's anion gap is 21, his calcium is 9.1, magnesium of 2.2. We will check his albumin. White count is 12.32, hemoglobin 12.6, his hematocrit 35.7 with a platelet count of 57,000. Urine culture shows no growth. PHYSICAL EXAM: This is a 57-year-old white male he is resting quietly in bed. He is minimally responsive. He is in no acute distress. His skin is warm and dry.HEENT: Normocephalic, atraumatic. Conjunctiva is pink. He has CORDELIA though sluggish to react. Neck: Supple, trachea midline. There is no evidence of JVD. Cardiovascular: He is regular rate and rhythm. No murmur or gallop appreciated. Lungs: The patient is tachypneic, he is using his upper respiratory muscles for assistance. He has a long expiratory phase basically clear. Abdomen: Soft, slightly distended, nontender. Genitourinary: Riggs catheter is in place minimal urine out. Neurologic: As mentioned above he is lethargic, minimal responsiveness. Does not follow commands. ASSESSMENT AND PLAN: 1. Acute kidney injury. BUN and creatinine are elevated. Decreased urinary output. Patient currently meets criteria for starting hemodialysis. We will talk with the family today to determine their wishes. 2. Acute rhabdomyolysis. CPK has been elevated. The patient's last documented CPK was down from 5000 to 2712. We have treated him with sodium bicarbonate. 3. Electrolytes and acid-base balance. Patient has an elevated sodium of 151, insulin is currently in normal saline. The patient needs assistance from hemodialysis otherwise may require free water. 4. Acid-base balance again with correction on dialysis for plan. 5. anemia. This is actually close to target hemoglobin of 12.6. 6. Thrombocytopenia. Hematology has been consulted. 7. Leukocytosis followed by Dr. Alvarez. Like to thank you for allowing us to follow with this patient. I spoke with his sister around 4 PM and discussed his [place] and the role of dialysis in the management of his illness. I also discussed the need for vascath placement to facilitate treatment. She understands and agrees to proceed. rg Dictated by LAUREEN Perkins for Parviz Ritter MD Face to face encounter, data reviewed, discussed with Alex Palafox on 01/02/19. I agree with the above assessment and plan of care. rg cc: LAUREEN Perkins MD [facility]
[2019-01-02] MEDS: DUONEB (A & A) INH SCH ×3 (16:05→23:33)
[2019-01-02 16:29] LABS: BASO# 0.02 X1000 (0.0-0.2); BASO% 0.2 % (0.0-0.8); EOS# 0.01 X1000 (0.0-0.7); EOS% 0.1 % (0.0-10.0); HEMATOCRIT 35.3 % (42.0-52.0); HEMOGLOBIN 12.5 g/dL (14.0-18.0); IMM GRAN# 0.02 X1000 (0.0-0.04); IMM GRAN% 0.2 % (0.0-0.5); LYMPH# 1.32 X1000 (1.2-3.4); LYMPH% 14.2 % (20.5-51.1); MCH 33.5 PG (27-31); MCHC 35.5 g/dL (33-37); MCV 94.4 FL (81-99); MONO# 0.67 X1000 (0.11-0.59); MONO% 7.2 % (1.7-9.3); MPV 12.4 FL (7.4-10.4); NEUT# 7.26 X1000 (1.4-6.5); NEUT% 78.1 % (42.2-75.2); PLT 64 X1000 (130-400); RBC 3.74 XMIL (4.7-6.1); RDW 15.5 % (11.5-14.5); WBC 9.31 X1000 (4.8-10.8)
--- NOTE | 2019-01-02 16:33 | ECHO REPORT ---
ORDER DATE: 01/02/2019 INDICATIONS: Coronary artery disease, CHF, hypertension, history of bypass. FINDINGS: 1. The right atrium appears normal in size at 3.1 cm. 2. Mild tricuspid regurgitation. 3. Normal RV size and systolic function. 4. No significant pulmonic insufficiency. 5. Normal left atrial size at 3.4 cm. 6. No mitral valve prolapse. Mild to moderate mitral regurgitation, a somewhat eccentric jet of mitral regurgitation. 7. Normal LV size, end-diastolic dimension of 5 cm. Normal wall thicknesses with a posterior and interventricular septal wall thickness of 1.1 and 0.9 cm, respectively. Normal LV systolic function. Estimated EF of 55%. 8. The aortic valve opens well. It is trileaflet. Trace insufficiency. No stenosis. 9. The aorta appears normal in visualized segments. 10. No pericardial effusion seen. cc: MD Tameka Browning MD
[2019-01-02] MEDS: D5W 1,000 ML IV SCH (17:34)
[2019-01-02 18:07] LABS: CALCIUM 9.3 mg/dL (8.8-10.2); CREATININE 7.7 mg/dL (0.7-1.2); MAGNESIUM 2.5 mg/dL (1.5-2.7); POTASSIUM 5.1 mmol/L (3.5-5.1)
--- NOTE | 2019-01-02 18:34 | Diag Imaging Result Doc PS360 ---
EXAM: CHEST-PORTABLE INDICATION: Vas-Cath placement TECHNIQUE: One view COMPARISON: 01/02/2019 FINDINGS: The newly placed Vas-Cath is identified with the tip projecting over the right SVC near the atriocaval junction in the expected position. There is no evidence of pneumothorax postplacement. The chest is stable, otherwise. IMPRESSION: Interval placement of right Vas-Cath in the expected position with no evidence of postprocedural pneumothorax. Stable chest, otherwise. Electronically signed by Patricio Shay 01/02/2019 6:32 PM
[2019-01-02] MEDS: MUCOMYST 20% INH SCH (19:51)
--- NOTE | 2019-01-02 21:15 | OPERATIVE NOTE ---
PROCEDURE DATE: 01/02/2019 PREOPERATIVE DIAGNOSIS: Acute renal failure, requiring hemodialysis. POSTOPERATIVE DIAGNOSIS: Acute renal failure, requiring hemodialysis. PRINCIPAL PROCEDURE: Right internal jugular Vas-Cath, using ultrasound. SURGEON: Lizzeth Jackman MD. ANESTHESIA: Local. ESTIMATED BLOOD LOSS: 10 mL. DRAINS: None. INDICATIONS: Angelo Puri is a 57-year-old white male in our ICU with acute renal failure and pulmonary edema. He is on pressured ventilation. We were asked to place access for hemodialysis. PROCEDURE: The patient was placed supine in his bed, CCU 11. His right neck was prepped and draped in a sterile field. We used local anesthetic at our puncture and incision site, base of right neck. We used ultrasound guidance to identify the right internal jugular vein. Under ultrasound guidance, I placed an 18-gauge needle into the right internal jugular vein. A guidewire was placed through this needle into the right side of the heart. The needle was removed, and I placed sequential dilators over the guidewire into the superior vena cava. I then used a 13 cm in length Vas-Cath and placed it over the guidewire into the superior vena cava. The guidewire was removed and all 3 ports were flushed with saline and were functioning well. The catheter was secured to his skin, base of right neck, with a 3-0 nylon stitch. Dressings were applied. He tolerated the procedure well. We will get a portable chest x-ray for placement. cc: Lizzeth Jackman MD
[2019-01-02 21:59] LABS: CALCIUM 8.7 mg/dL (8.8-10.2); CREATININE 7.7 mg/dL (0.7-1.2); MAGNESIUM 2.5 mg/dL (1.5-2.7); POTASSIUM 5.2 mmol/L (3.5-5.1)
[2019-01-03 01:36] LABS: CALCIUM 8.4 mg/dL (8.8-10.2); CREATININE 7.6 mg/dL (0.7-1.2); MAGNESIUM 2.5 mg/dL (1.5-2.7); POTASSIUM 5.2 mmol/L (3.5-5.1)
[2019-01-03] MEDS: LOPRESSOR IV SCH ×4 (03:07→20:01)
[2019-01-03] MEDS: DUONEB (A & A) INH SCH ×6 (03:33→23:01)
[2019-01-03 05:15] LABS: ALLEN TEST YES; BE -14.1 mmoll (-3.0-3.0); BLOOD TYPE ARTERIAL; HCO3-(ACT) 13.9 mmoll (20.0-26.0); METHB 1.1 % (0.0-1.5); O2(CT) 21.2 mL/dL (15.0-23.0); O2HB 96.8 % (95.0-99.0); PCO2(98.6) 21 mmHg (35-45); PO2(98.6) 122 mmHg (60-100); SAMPLE BLOOD; SAO2 99.5 % (95.0-100.0); THB 15.5 g/dL (11.5-17.4); pH(98.6) 7.29 (7.35-7.45)
[2019-01-03 05:21] LABS: MODALITY BI PAP
[2019-01-03 05:45] LABS: BASO# 0.02 X1000 (0.0-0.2); BASO% 0.2 % (0.0-0.8); EOS# 0.03 X1000 (0.0-0.7); EOS% 0.3 % (0.0-10.0); IMM GRAN# 0.02 X1000 (0.0-0.04); IMM GRAN% 0.2 % (0.0-0.5); LYMPH# 1.39 X1000 (1.2-3.4); LYMPH% 14.2 % (20.5-51.1); MONO# 1.12 X1000 (0.11-0.59); MONO% 11.5 % (1.7-9.3); MPV 14.3 FL (7.4-10.4); NEUT# 7.18 X1000 (1.4-6.5); NEUT% 73.6 % (42.2-75.2)
[2019-01-03 05:46] LABS: HEMATOCRIT 33.6 % (42.0-52.0); HEMOGLOBIN 11.9 g/dL (14.0-18.0); MCH 33.4 PG (27-31); MCHC 35.4 g/dL (33-37); MCV 94.4 FL (81-99); RBC 3.56 XMIL (4.7-6.1); RDW 15.5 % (11.5-14.5); WBC 9.76 X1000 (4.8-10.8)
[2019-01-03 06:15] LABS: PLT 50 X1000 (130-400)
[2019-01-03] MEDS ORDERED: HEPARIN IV PRN ×3 (06:26→10:43)
[2019-01-03] MEDS ORDERED: NS 2,000 ML MISC PRN ×2 (06:26→07:09)
[2019-01-03] MEDS ORDERED: TIGHT: 0.2 ML/HR FOR DIALYSIS MISC PRN (06:26)
[2019-01-03] MEDS: NEXIUM IV SCH (06:29)
[2019-01-03] MEDS: D5W 1,000 ML IV SCH ×2 (06:29→19:54)
[2019-01-03 06:38] LABS: CALCIUM 8.2 mg/dL (8.8-10.2); CREATININE 7.5 mg/dL (0.7-1.2); MAGNESIUM 2.4 mg/dL (1.5-2.7); POTASSIUM 4.9 mmol/L (3.5-5.1)
[2019-01-03 07:07] LABS: ACETONE SERUM NEGATIVE (NEGATIVE)
[2019-01-03 07:13] LABS: CK TOTAL 1206 U/L (24-204)
--- NOTE | 2019-01-03 07:28 | Diag Imaging Result Doc PS360 ---
EXAM: CHEST-PORTABLE INDICATION: dyspnea TECHNIQUE: One view COMPARISON: 01/02/2019 FINDINGS: The right Vas-Cath is in stable position. The mild hazy opacity at the lung bases likely representing edema is approximately stable. No new consolidation is identified. Cardiac silhouette is stable. IMPRESSION: Essentially stable chest. Electronically signed by Patricio Shay 01/03/2019 7:26 AM
--- NOTE | 2019-01-03 07:59 | PULMONOLOGY CONSULTATION ---
DATE: 01/02/2019 REQUESTING PHYSICIAN: Dr. Richards. REASON FOR CONSULTATION: Respiratory failure. HISTORY OF PRESENT ILLNESS: Mr. Puri is a 57-year-old, white male with a history of diabetes mellitus, who was found unresponsive in his house by EMS. The patient was hypotensive and his initial blood glucose was almost 1400 with an increased anion gap. The patient has remained unresponsive since his admission, 12/31/2018. The patient was in rhabdomyolysis upon presentation and has developed oliguric renal failure, along with significant hyperchloremia and hypernatremia. He has had increasing oxygen requirements and was on 2 L earlier this morning with progressive increase in oxygen requirements. He is now on BiPAP. PAST MEDICAL HISTORY/PROBLEM LIST: 1. Diabetes mellitus. 2. Coronary artery disease with prior myocardial infarction. 3. History of intracranial hemorrhage. 4. History of thrombocytopenia. 5. History of hypertension. 6. Status post appendectomy. 7. Status post coronary artery bypass grafting. SOCIAL HISTORY: A history of tobacco use listed by hospitalist. Unknown amount, duration, or smoking cessation date. FAMILY HISTORY: Not immediately available. PHYSICAL EXAMINATION: General: Reveals a poorly responsive male on BiPAP ventilation. He is moving good air on noninvasive ventilation. BP 132/69, heart rate 89, respiratory rate 21, oxygen saturation 100%. HEENT: Pupils appear equal. Oropharynx appears dry. Neck is supple. Chest: Reveals rhonchi bilaterally. Cardiac Examination: Regular rate. Normal S1, normal S2. Abdomen: Soft, with diminished bowel sounds. Extremities: Reveal 1+ peripheral edema. LABORATORIES: Chest x-ray reveals generous cardiac silhouette. Mild vascular congestion. Vas- Cath in good position. Sodium 150, potassium 5.2, chloride 119, bicarbonate 11, anion gap 20, BUN 94, creatinine 7.7. Arterial blood gas at noon today on partial rebreather, pH 7.25, pCO2 of 24, PO2 of 80. IMPRESSION: A 57-year-old with: 1. Acute hypoxemic respiratory failure. 2. Acute renal failure. 3. Anion gap acidosis. 4. Hyperchloremic metabolic acidosis. 5. Hypernatremia. 6. Mild pulmonary edema. 7. Altered mental status/encephalopathy. RECOMMENDATIONS: 1. Agree with plans for dialysis. He has a significant water deficit that will be difficult to correct with his renal failure. 2. We will initiate free water pending initiation of dialysis. 3. Continue BiPAP. With altered mental status, nurses have been instructed not to escalate his oxygen concentration but that if he has evidence of decline, to proceed with intubation. 4. Add mucolytics for bronchial hygiene. His chest x-ray does not fully explain his hypoxemia and he likely has a component of secretions contributing to his hypoxemia. 5. Prognosis is guarded. Continue ICU monitoring. cc: Jhonny Galeas MD
[2019-01-03] MEDS: MUCOMYST 20% INH SCH ×2 (08:15→19:02)
[2019-01-03] MEDS: HUMULIN R 100 UNIT in NS 100 ML IV SCH (08:48)
[2019-01-03 09:07] LABS: CALCIUM 8.3 mg/dL (8.8-10.2); CREATININE 6.8 mg/dL (0.7-1.2); MAGNESIUM 2.2 mg/dL (1.5-2.7); POTASSIUM 4.5 mmol/L (3.5-5.1)
[2019-01-03] MEDS ORDERED: ALBUMIN 25% IV ONE (12:17)
--- NOTE | 2019-01-03 12:38 | INFECTIOUS DISEASE PROGRESS NO ---
DATE: 01/03/2019 PRESENT ILLNESS: The patient had a leukocytosis and in the last 2 days, his white count has been normal. MEDICATIONS: The patient is not on any antibiotics. PHYSICAL EXAMINATION: Vital Signs: Temperature is 98 degrees, pulse 97, respirations 22, blood pressure 102/67. General: This is an obese, middle-aged male. He is in no acute distress. Head/eyes/ears/nose/throat: I did not notice any drainage from the nose or the ears. Neck: No meningismus. Patient has a right-sided internal jugular vein dialysis catheter in place. The site is not erythematous or swollen. Lungs: Clear to auscultation. Abdomen: Soft and nontender. Neurologic: The patient did open his eyes when I requested him to but he did not move his extremities when I asked him. LAB AND X-RAY: There is no new radiographic study. The patient's CBC for today shows a white count of 9760, hemoglobin 11.9, and platelet count 50,000. Blood gases show a pH of 7.29, a PO2 of 122, and a pCO2 of 22. The creatinine 6.8. GFR is 8. The patient's chest x-ray today shows mild hazy opacity at the lung bases, likely representing edema. It is stable. There is no new consolidation. IMPRESSION: Essentially stable chest. ASSESSMENT AND PLAN: The patient does not have an infection at this time, and his white blood cell count is normal, and he has been afebrile. I am signing off the patient's case. I do not think he needs any antibiotic treatment at this time, but I am available to see the patient on a p.r.n. basis. COMORBIDITIES: The patient is diabetic. He has congestive heart failure, and in the past he has had an intracranial hemorrhage. cc: Ki Alvarez MD
--- NOTE | 2019-01-03 13:04 | PROGRESS NOTE ---
DATE: 01/03/2019 SUBJECTIVE: The patient is lethargic. He is currently on SLED. OBJECTIVE: Temperature 98.1 degrees, blood pressure 106/71, heart rate 104, respirations 27, O2 saturation 92% on 6 L nasal cannula. Intake 1.1 L. General: This is an overweight male lying in bed in no acute distress. Head normocephalic, atraumatic. Heart S1, S2 normal, tachycardic. Lungs coarse breath sounds bilaterally. No wheezing. Abdomen is slightly distended. Positive bowel sounds. Soft. Extremities 1+ edema bilaterally. Neuro, the patient is lethargic. He does not follow commands. LABS: Sodium 149, potassium 4.5, chloride 120, CO2 11, BUN 97, creatinine 6.8, glucose 224, magnesium 2.2, phosphorus 3.4, calcium 8.3. White blood cell count 9.7, hemoglobin 11.9, hematocrit 33, platelets 50,000. Chest x-ray shows hazy opacity at the lung bases. ASSESSMENT AND PLAN: 1. Acute hypoxemic respiratory failure. Likely secondary to volume overload. The patient is on SLED at this time. We will monitor his response closely. 2. Volume overload with acute pulmonary edema. This will be addressed today during the patient's SLED session. 3. Diabetic ketoacidosis. The patient remains on the diabetic ketoacidosis protocol. Hopefully we will be able to transition the patient to long-acting insulin later today if his acid-base status has improved. 4. Acute kidney injury with oliguria. The patient is now on SLED. We will monitor his response closely. Further management as per Dr. Ritter. 5. Rhabdomyolysis. Improved. 6. Thrombocytopenia. Stable. 7. Acute pancreatitis. The lipase is slowly improving. 8. Fatty liver disease. Aware. 9. Gastrointestinal prophylaxis. Continue on Nexium. 10. Disposition. The patient is critically ill with a high risk of mortality. cc: Tameka Richards MD [facility]
--- NOTE | 2019-01-03 13:17 | NEPHROLOGY PROGRESS NOTE ---
DATE: 01/03/2019 SUBJECTIVE: Mr. Puri is resting quietly in bed. He does open his eyes today, attempts to verbalize though he remains nonverbal. OBJECTIVE: Vital Signs: Temperature 99 degrees blood pressure 114/87, heart rate 86 respirations. The patient is currently on 30% BiPAP. His last recorded saturation is 98%. He has had 474 in, 115 out to Riggs catheter. He remains at 8.4 L positive. LABORATORY DATA: Sodium 151, potassium 5.2, chloride 120, CO2 11, BUN 98, creatinine 7.6, glucose 297. His anion gap is 20, calcium 8.4, phosphorus 4, albumin 2.5. White count 9.76, hemoglobin 11.9, hematocrit 33.6. The patient's platelet count is 50,000. ABGs: PH 7.29, CO2 of 21, PO2 122, bicarb 13.9, lactate 2 on 30% BiPAP. PHYSICAL EXAMINATION: General: This is a 57-year-old white male resting quietly in bed. He appears chronically ill, no acute distress. Skin: Warm and dry. HEENT: Normocephalic, atraumatic. Conjunctiva is pale pink. He has CORDELIA, though sluggish to react. Neck: Supple, trachea midline. No evidence of JVD. Cardiovascular: Regular rate and rhythm. No murmur appreciated. Lungs: Clear to auscultation anterior. Remains on O2 support. Less accessory muscles used today. Less tachypneic. Abdomen: Soft, nontender, positive bowel sounds. Genitourinary: Riggs catheter is in place. Minimal urine out. Neurologic: As mentioned above. ASSESSMENT AND PLAN: 1. Acute kidney injury. BUN and creatinine continue to elevate. Decreased urinary output. We have spoken to the family and we will plan to start hemodialysis today. Dr. Jackman has placed a Vas-Cath to the right IJ yesterday evening. We will place him on Slow Low Efficiency dialysis. 4K bath, 30 bicarbonate, 8 hours with 4L ultrafiltration. We will plan for dialysis again tomorrow. 2. Acute rhabdomyolysis. Last CPK had continue elevated. We will correct with sodium bicarbonate on dialysis today. CO2 remains at 11. 3. Further electrolytes: Sodium is 151, again with correction on dialysis. 4. Anemia. Hemoglobin 11.9. This is stable. 5. Thrombocytopenia, followed by hematology. 6. Leukocytosis followed by Dr. Alvarez. 7. I would to thank you for allowing us to follow with this patient. Dictated by LAUREEN Perkins for Parviz Ritter MD Face to face encounter, data reviewed, discussed with Alex Palafox on 01/03/19. I agree with the above assessment and plan of care. cc: LAUREEN Perkins MD [facility]
[2019-01-03 13:45] LABS: CALCIUM 8.6 mg/dL (8.8-10.2); CREATININE 3.1 mg/dL (0.7-1.2); MAGNESIUM 1.6 mg/dL (1.5-2.7); POTASSIUM 3.7 mmol/L (3.5-5.1)
[2019-01-03 16:51] LABS: CALCIUM 8.5 mg/dL (8.8-10.2); CREATININE 2.5 mg/dL (0.7-1.2); MAGNESIUM 1.5 mg/dL (1.5-2.7); POTASSIUM 3.9 mmol/L (3.5-5.1)
--- NOTE | 2019-01-03 20:07 | PULMONOLOGY PROGRESS NOTE ---
DATE: 01/03/2019 SUBJECTIVE: The patient has been taken off his BiPAP. He appears to be comfortable on face mask. He is currently being initiated on hemodialysis. He does not respond to my voice. OBJECTIVE: Vital Signs: Maximum temperature in the last 24 hours is 99.8 degrees. Blood pressure 132/80, heart rate 96, respiratory rate 19, oxygen saturation 96%. HEENT: Pupils appear equal. Oropharynx appears dry. Neck: Supple. chest: Occasional rhonchi bilaterally. Cardiac: S1-S2. Abdomen: Soft. Extremities: Without edema. LABORATORY AND DIAGNOSTIC DATA: Chest x-ray reveals mild pulmonary edema, but no acute changes. Sodium 148, potassium 4.9, chloride 118, bicarbonate level 9, anion gap 21, BUN 99, creatinine 7.5. Arterial blood gas, pH 7.29, pCO2 of 21, PO2 of 122. IMPRESSION: A 57-year-old with: 1. Acute hypoxemic respiratory failure. 2. Encephalopathy. 3. Acute renal failure. 4. Increased anion gap acidosis. 5. Hyperchloremic metabolic acidosis. 6. Hypernatremia. 7. Mild pulmonary edema. DISCUSSION: A 57-year-old with problems outlined above. His sodium has improved, but he remains poorly responsive. He is doing well without BiPAP ventilation at this time. PLAN: 1. Hemodialysis today to correct electrolytes. 2. Continue supplemental oxygen as needed for hypoxemic respiratory failure. 3. Continue ICU monitoring to see if his mental status will improve or if this is going to be a lasting phenomenon. cc: Jhonny Galeas MD
[2019-01-03 21:06] LABS: CREATININE 2.9 mg/dL (0.7-1.2); MAGNESIUM 1.4 mg/dL (1.5-2.7); POTASSIUM 4.4 mmol/L (3.5-5.1)
[2019-01-04 01:09] LABS: CALCIUM 8.3 mg/dL (8.8-10.2); CREATININE 3.4 mg/dL (0.7-1.2); MAGNESIUM 1.5 mg/dL (1.5-2.7); POTASSIUM 4.1 mmol/L (3.5-5.1)
[2019-01-04] MEDS: DUONEB (A & A) INH SCH ×6 (03:31→22:58)
[2019-01-04] MEDS: LOPRESSOR IV SCH ×4 (04:19→20:40)
[2019-01-04 04:33] LABS: BLOOD TYPE ARTERIAL; SAMPLE BLOOD
[2019-01-04 04:34] LABS: ALLEN TEST YES; BE -2.6 mmoll (-3.0-3.0); HCO3-(ACT) 22.9 mmoll (20.0-26.0); METHB 1.3 % (0.0-1.5); O2(CT) 15.1 mL/dL (15.0-23.0); O2HB 96.5 % (95.0-99.0); PCO2(98.6) 24 mmHg (35-45); PO2(98.6) 124 mmHg (60-100); SAO2 99.3 % (95.0-100.0); pH(98.6) 7.51 (7.35-7.45)
[2019-01-04 04:35] LABS: MODALITY BI PAP
[2019-01-04 05:03] LABS: BASO# 0.03 X1000 (0.0-0.2); BASO% 0.3 % (0.0-0.8); EOS# 0.09 X1000 (0.0-0.7); HEMATOCRIT 30.5 % (42.0-52.0); HEMOGLOBIN 10.8 g/dL (14.0-18.0); IMM GRAN# 0.15 X1000 (0.0-0.04); IMM GRAN% 1.6 % (0.0-0.5); LYMPH# 2.07 X1000 (1.2-3.4); LYMPH% 21.9 % (20.5-51.1); MCH 33.2 PG (27-31); MCHC 35.4 g/dL (33-37); MCV 93.8 FL (81-99); MONO% 23.3 % (1.7-9.3); NEUT% 51.9 % (42.2-75.2); PLT 61 X1000 (130-400); RBC 3.25 XMIL (4.7-6.1); RDW 15.2 % (11.5-14.5); WBC 9.44 X1000 (4.8-10.8)
[2019-01-04 05:16] LABS: CALCIUM 8.6 mg/dL (8.8-10.2); CREATININE 3.8 mg/dL (0.7-1.2); MAGNESIUM 1.6 mg/dL (1.5-2.7); POTASSIUM 4.1 mmol/L (3.5-5.1)
[2019-01-04 05:25] LABS: ACETONE SERUM NEGATIVE (NEGATIVE)
[2019-01-04 05:35] LABS: CK TOTAL 425 U/L (24-204)
[2019-01-04 05:41] LABS: BANDS 10 % (0-1); EOS 1 % (1-10); LYMPHS 20 % (21-51); MONO 7 % (1-9); SEGS 61 % (42-75)
[2019-01-04] MEDS: HUMULIN R 100 UNIT in NS 100 ML IV SCH (06:10)
[2019-01-04] MEDS: NEXIUM IV SCH (06:10)
--- NOTE | 2019-01-04 07:09 | Diag Imaging Result Doc PS360 ---
EXAM: CHEST-PORTABLE 01/04/2019 HISTORY: dyspnea TECHNIQUE: AP portable at 0541 COMMENT: There is a right internal jugular central venous catheter with its tip above the right atrium. The opacities previously demonstrated on 01/03/2019 over the right base have improved. There are no new abnormalities. IMPRESSION: Improved atelectasis and/or pneumonia right lower lobe. Electronically signed by Antonio Candelario 01/04/2019 7:06 AM
[2019-01-04] MEDS: MUCOMYST 20% INH SCH ×2 (08:00→20:05)
[2019-01-04] MEDS: D5W 1,000 ML IV SCH (08:41)
[2019-01-04 08:42] LABS: CALCIUM 8.6 mg/dL (8.8-10.2); CREATININE 4.2 mg/dL (0.7-1.2); MAGNESIUM 1.8 mg/dL (1.5-2.7); POTASSIUM 4.2 mmol/L (3.5-5.1)
--- NOTE | 2019-01-04 09:30 | PULMONOLOGY PROGRESS NOTE ---
DATE: 01/04/2019 SUBJECTIVE: The patient is more awake today. He does respond to questions. He has no increased work of breathing. He is currently on a 50% Venturi mask. OBJECTIVE: Vital Signs: The patient has been afebrile for the last 24 hours. Blood pressure 125/85, heart rate 88, respiratory rate 24, oxygen saturation 100%. HEENT: Pupils are equal. Oropharynx appears clear. Neck is supple. Chest reveals occasional rhonchi bilaterally with good air flow bilaterally. Cardiac Examination: S1-S2. Abdomen is soft. Extremities are without edema. Laboratories: Chest x-ray reveals decreased atelectasis/infiltrate at the right base. White blood count 9.44, hemoglobin 10.8, platelet count 61,000. Sodium 137, potassium 4.2, chloride 104, bicarbonate 18, BUN 34, creatinine 4.2, glucose 142. Arterial blood gas, pH 7.51, pCO2 of 24, PO2 of 124. IMPRESSION: A 57-year-old with: 1. Encephalopathy, with significant improvement over the last 24 hours. 2. Acute hypoxemic respiratory failure. 3. Acute renal failure. 4. Mild pulmonary edema, with improvement on chest x-ray. PLAN: 1. Continue bronchial hygiene. 2. Discontinue D5W. 3. Recommend advancing diet as tolerated. 4. Wean oxygen as tolerated. cc: Jhonny Galeas MD
[2019-01-04] MEDS ORDERED: LEVEMIR SUBQ ONE (10:48)
[2019-01-04] MEDS ORDERED: INSULIN PEN NEEDLES ONE (11:04)
[2019-01-04] MEDS: HUMULIN R SUBQ SCH ×3 (11:22→20:39)
--- NOTE | 2019-01-04 11:23 | NEPHROLOGY PROGRESS NOTE ---
DATE: 01/04/2019 TIME SEEN: 7:25. SUBJECTIVE: Mr. Puri is a little bit more awake today. He does remain nonverbal. He remains on 50% face mask. OBJECTIVE: Vital Signs: Temperature 98.2 degrees, blood pressure 125/76, heart rate 86, respirations 24, he is currently on 50% face mask, last recorded saturation 100%. Intake and Output: He has had 1244 in, 2750 out per dialysis. LABORATORY DATA: Sodium 135, potassium 4.1, chloride 102, CO2 of 18, BUN 31, creatinine 3.8, glucose 147, his anion gap is 15, calcium 8.6, phosphorus 1.8, magnesium of 1.8. White count 9.44, hemoglobin 10.8, hematocrit 30.8 with a platelet count 61,000. ABGs: PH 7.51, CO2 of 24, PO2 of 124, bicarbonate 22.9 on 30% BiPAP during the night. PHYSICAL EXAMINATION: This is a 57-year-old white male. He is currently resting quietly in bed. Head of the bed is slightly elevated he is in no acute distress. His skin is warm and dry.HEENT: Normocephalic, atraumatic. Conjunctiva is pale pink. He has CORDELIA, though sluggish to react. Neck: Supple. Trachea midline. No evidence of JVD. Cardiovascular: He has regular rate and rhythm. He is without murmur or gallop. Lungs: Clear to auscultation bilaterally with equal excursion on O2. Abdomen: Soft, nontender with positive bowel sounds. Genitourinary: Not inspected. Riggs catheter is in place with very minimal urine out. Extremities: Have 1+ lower extremity edema up into the hip region. Neurological: As mentioned above. ASSESSMENT AND PLAN: 1. Acute kidney injury. BUN and creatinine have improved status post dialysis yesterday. No urine output has been documented. We will hold dialysis today and re- evaluate in the a.m. 2. Acute rhabdomyolysis. No repeat on his CPKs in several days with correction on dialysis for his acid-base balance. 3. Electrolytes and acid-base balance. Again, the patient was corrected yesterday on dialysis. We will continue to monitor to see if there is any improvement tomorrow. 4. Anemia. This is stable. 5. Thrombocytopenia. Followed by Hematology. 6. Leukocytosis. Followed by Dr. Ki Alvarez. I would like to thank you for allowing us to follow with this patient. Dictated by LAUREEN Perkins for Parviz Ritter MD Face to face encounter, data reviewed, discussed with Alex Palafox on 01/04/19. I agree with the above assessment and plan of care. cc: LAUREEN Perkins MD [facility]
[2019-01-04 12:28] LABS: CALCIUM 8.4 mg/dL (8.8-10.2); CREATININE 4.3 mg/dL (0.7-1.2); MAGNESIUM 1.7 mg/dL (1.5-2.7); POTASSIUM 4.2 mmol/L (3.5-5.1)
[2019-01-04 12:36] LABS: HEPATITIS PROFILE ACUTE SEE COMMENTS
--- NOTE | 2019-01-04 18:45 | PROGRESS NOTE ---
DATE: 01/04/2019 SUBJECTIVE: The patient is resting comfortably. He still is confused and falls asleep pretty quickly. OBJECTIVE: Vital Signs: Temperature 98 degrees, blood pressure 126/76, heart rate 89, respirations 21, O2 saturations 100% on a Venturi mask. General: This is a morbidly obese male lying in bed in no acute distress. Heart: S1, S2 normal. Regular rate and rhythm. Lungs: Equal air entry bilaterally. No wheezing. No rales. Abdomen: Slightly distended. Positive bowel sounds. Soft, nontender. Extremities: 1+ edema bilaterally. Neurologic: The patient will open his eyes and follow commands. LABS: White blood cell count 9.4, hemoglobin 10, hematocrit 30, platelets 61,000. Sodium 137, potassium 4.2, chloride 103, CO2 19, BUN 36, creatinine 4.3, glucose 109, magnesium 1.7, phosphorus 2.8, calcium 8.4, albumin 2.9, lipase 116. ASSESSMENT AND PLAN: 1. Acute hypoxemic respiratory failure. The patient is now on a Venturi mask. Continue with supportive care. 2. Volume overload. Improved. 3. Diabetic ketoacidosis. Resolved. We will transition the patient to long- acting insulin and sliding scale insulin. 4. Metabolic encephalopathy. Monitor for improvement. 4. Acute kidney injury with oliguria. 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 5. Acute pancreatitis. Improved. 6. Thrombocytopenia. Stable. 7. Rhabdomyolysis. Improved. 8. Fatty liver disease. Aware. 9. Metabolic acidosis. Improved. 10. Gastrointestinal prophylaxis. Continue on Nexium. cc: Tameak Richards MD [facility]
[2019-01-04] MEDS: LEVEMIR SUBQ SCH (20:40)
[2019-01-04] MEDS ORDERED: LEVEMIR SUBQ SCH (21:00)
[2019-01-05] MEDS: LOPRESSOR IV SCH ×4 (02:22→21:11)
[2019-01-05] MEDS: DUONEB (A & A) INH SCH ×6 (03:28→22:57)
[2019-01-05] MEDS: ZOFRAN IV PRN (04:23)
[2019-01-05 04:36] LABS: ALLEN TEST YES; BE -7.9 mmoll (-3.0-3.0); BLOOD TYPE ARTERIAL; HCO3-(ACT) 18.8 mmoll (20.0-26.0); METHB 1.3 % (0.0-1.5); O2(CT) 14.6 mL/dL (15.0-23.0); PCO2(98.6) 28 mmHg (35-45); PO2(98.6) 98 mmHg (60-100); SAMPLE BLOOD; SAO2 99.1 % (95.0-100.0); THB 10.7 g/dL (11.5-17.4); pH(98.6) 7.37 (7.35-7.45)
[2019-01-05 04:37] LABS: MODALITY BI PAP
[2019-01-05 05:47] LABS: ALB/GLOB RATIO 0.7; ALBUMIN 2.3 g/dL (3.5-5.0); DIRECT BILIRUBIN 0.5 mg/dL (0.00-0.20); TOTAL BILIRUBIN 1.05 mg/dL (0.20-1.00); TOTAL PROTEIN 5.8 g/dL (6.3-8.3)
[2019-01-05] MEDS: SODIUM CHLORIDE 0.9% INJ SCH (06:01)
[2019-01-05] MEDS: HUMULIN R SUBQ SCH ×4 (06:01→22:23)
[2019-01-05] MEDS: NEXIUM IV SCH (06:01)
[2019-01-05 06:13] LABS: ALBUMIN 2.5 g/dL (3.5-5.0); CALCIUM 8.2 mg/dL (8.8-10.2); CREATININE 5.7 mg/dL (0.7-1.2); PHOSPHORUS 5.1 mg/dL (2.7-4.5); POTASSIUM 4.4 mmol/L (3.5-5.1)
[2019-01-05 06:26] LABS: BASO# 0.04 X1000 (0.0-0.2); BASO% 0.4 % (0.0-0.8); EOS% 1.1 % (0.0-10.0); HEMATOCRIT 30.8 % (42.0-52.0); HEMOGLOBIN 10.6 g/dL (14.0-18.0); IMM GRAN# 0.06 X1000 (0.0-0.04); IMM GRAN% 0.6 % (0.0-0.5); LYMPH# 1.88 X1000 (1.2-3.4); MCH 32.8 PG (27-31); MCHC 34.4 g/dL (33-37); MCV 95.4 FL (81-99); MONO# 2.34 X1000 (0.11-0.59); MONO% 24.9 % (1.7-9.3); MPV 12.5 FL (7.4-10.4); NEUT# 4.97 X1000 (1.4-6.5); RBC 3.23 XMIL (4.7-6.1); WBC 9.39 X1000 (4.8-10.8)
[2019-01-05 06:27] LABS: PLT 46 X1000 (130-400)
[2019-01-05] MEDS ORDERED: NS 2,000 ML MISC PRN ×2 (06:30→08:56)
--- NOTE | 2019-01-05 07:21 | Diag Imaging Result Doc PS360 ---
CHEST-PORTABLE - 01/05/2019 INDICATION: pulmonary edema COMPARISON: 01/04/2019 FINDINGS: Stable right-sided central line. Lung volumes are much lower. Otherwise grossly stable cardiomegaly and severe pulmonary vascular congestion. There is increasing nonspecific bronchovascular crowding or edema in the lung bases. IMPRESSION: Lower lung volumes with nonspecific worsening. Electronically signed by Daniel Schulte 01/05/2019 7:18 AM
[2019-01-05] MEDS: LEVEMIR SUBQ SCH ×2 (08:39→21:11)
[2019-01-05] MEDS: MUCOMYST 20% INH SCH ×2 (08:42→19:25)
[2019-01-05] MEDS ORDERED: HEPARIN IV PRN (08:56)
[2019-01-05] MEDS ORDERED: ALBUMIN 25% IV PRN (09:02)
--- NOTE | 2019-01-05 09:57 | NEPHROLOGY PROGRESS NOTE ---
DATE: 01/05/2019 TIME SEEN: 0715. SUBJECTIVE: Mr. Puri is awake and alert today. He states that he is hungry. OBJECTIVE: His most recent vital signs, temperature 97 degrees, blood pressure 154/86, heart rate 85, respirations are 26. He is on 4 L nasal cannula. Last recorded saturation 98%. He has had 247 in. He has only had 30 mL out. Patient remains 9 L positive. Laboratory Data: Sodium is 136, potassium 4.4, chloride is 101, CO2 is 14, BUN 52, creatinine 5.7, glucose 188, his anion gap is 21, calcium 8.2, phosphorus 5.1, albumin 2.5. His white count is 9.39, hemoglobin 10.6, hematocrit is 30.8, platelet count of 46,000. ABGs, pH of 7.37, CO2 of 28, PO2 of 98, bicarb 18.8 on BiPAP at 30% during the night. Physical Examination: General: This is a 58-year-old, white male. He is currently resting quietly in bed. He appears in no acute distress. His skin is warm and dry. HEENT: Normocephalic, atraumatic. Conjunctivae are pale. He has CORDELIA. Mucous membranes are dry. Neck: Supple. Trachea midline. No evidence of JVD. Cardiovascular: Regular rate and rhythm. Lungs: Clear to auscultation bilaterally. Equal excursion. He remains on O2. Abdomen: Soft, nontender. Positive bowel sounds. Genitourinary: Not inspected. Riggs catheter is in place. Minimal urine out is documented. Extremities: Have 1+ edema up into the mid hip region. Neurological: As mentioned above. ASSESSMENT AND PLAN: 1. Acute kidney injury. The patient remains anuric. BUN and creatinine continue to improve with dialysis but elevate without dialysis. We will plan for hemodialysis today. We will place him on a 2 K bath. He is to dialyze for 3.5 hours. We will attempt to pull 4 L of ultrafiltration as tolerated. 2. Acute rhabdomyolysis, again with treatment with dialysis. 3. Electrolytes and acid-base balance, with correction on dialysis. 4. Anemia. This remains stable. 5. Thrombocytopenia. Followed by hematology. 6. Leukocytosis. Followed by Dr. Alvarez. I would like to thank you for allowing us to follow with this patient. Dictated by LAUREEN Perkins for Parviz Ritter MD Face to face encounter, data reviewed, discussed with Alex Palafox on 01/05/19. I agree with the above assessment and plan of care. cc: LAUREEN Perkins MD [facility]
--- NOTE | 2019-01-05 19:55 | PROGRESS NOTE ---
DATE: 01/05/2019 SUBJECTIVE: The patient is more awake and alert today and states that he is hungry. OBJECTIVE: Vital signs: Temperature 98.1 degrees, blood pressure 117/77, heart rate 101, respiratory rate 24, O2 saturation 94% on 4 L nasal cannula. urine output 30 mL.General: This is a chronically ill-appearing elderly male lying in bed, in no acute distress. Heart: S1, S2 normal. Regular rate and rhythm. Lungs: Equal air entry bilaterally. No wheezing. No rales. No rhonchi. Abdomen: Positive bowel sounds. Slightly distended. Extremities: Edema 1+ bilaterally. Neurologic: The patient is alert and oriented x3. LABORATORY DATA: White blood cell count 9.3, hemoglobin 10, hematocrit 30, platelets 46,000. Sodium 136, potassium 4.4, chloride 101, CO2 is 14, BUN 52, creatinine 5.7, glucose 188, phosphorus 5.1, calcium 8.2, total bilirubin 1, direct bilirubin 0.5, AST 88, ALT 51, alkaline phosphatase 299, albumin 2.5. DIAGNOSTIC DATA: Chest x-ray shows edema in the lung bases as well as severe pulmonary vascular congestion. ASSESSMENT AND PLAN: 1. Acute hypoxemic respiratory failure. The patient is now on 4 L nasal cannula. Continue to monitor closely. 2. Volume overload. This will be managed during the patient's dialysis session today. 3. Metabolic encephalopathy. Improved. 4. Acute kidney injury with anuria. The patient is still requiring dialysis support. Management as per the wrecking car driver. 5. Thrombocytopenia. The patient's platelet count is a little bit lower today. We will continue to monitor closely. 6. Acute pancreatitis. Resolving. 7. Rhabdomyolysis. Improved. 8. Metabolic acidosis. We will continue to monitor closely for improvement. 9. Fatty liver disease. Aware. 10. Anemia. Stable. 11. Gastrointestinal prophylaxis. Continue on Nexium. 12. Nutrition. We will start the patient on a diabetic diet. 13. Uncontrolled insulin-dependent diabetes mellitus. We will continue on Levemir plus sliding scale insulin. cc: Tameka Richards MD [facility]
--- NOTE | 2019-01-06 02:57 | PULMONOLOGY PROGRESS NOTE ---
DATE: 01/05/2019 SUBJECTIVE: The patient is awake, alert, and conversant. He is currently in dialysis. He reports he has been getting liquids but is scheduled for a diet. OBJECTIVE: Vital Signs: The patient has been afebrile for the last 24 hours. Blood pressure 92/63, heart rate 99, respiratory rate 26, oxygen saturation 94% on 4 L per nasal cannula. HEENT: Pupils are equal and reactive. Oropharynx is clear. Neck: Supple. Chest: Reveals faint crackles in the lung bases. Cardiac: S1, S2. Abdomen: Soft. Extremities: Are without edema. LABORATORIES: Chest x-ray reveals shallow lung volumes, cardiomegaly, with mild pulmonary edema. White blood count 13.6, potassium 4.4, chloride 101, bicarbonate 14, anion gap 21, BUN 52, creatinine 5.7. Glucose 202. Arterial blood gas on BiPAP pH 7.37, pCO2 of 28, pO2 of 98. IMPRESSION: A 57-year-old with diabetes mellitus who presented with diabetic ketoacidosis and encephalopathy, who has: 1. Encephalopathy with continued improvement. 2. Acute hypoxemic respiratory failure. Doing well on nasal cannula. 3. Acute renal failure. 4. Mild pulmonary edema. PLAN: 1. Continue bronchial hygiene. 2. Advance diet as tolerated. 3. Wean oxygen as tolerated. cc: Jhonny Galeas MD
[2019-01-06] MEDS: DUONEB (A & A) INH SCH ×5 (03:58→20:00)
[2019-01-06] MEDS ORDERED: INSULIN PEN NEEDLES ONE (04:00)
[2019-01-06] MEDS: LOPRESSOR IV SCH ×4 (04:01→20:44)
[2019-01-06 04:55] LABS: ALLEN TEST YES; BLOOD TYPE ARTERIAL; HCO3-(ACT) 23.3 mmoll (20.0-26.0); METHB 1.7 % (0.0-1.5); O2(CT) 12.3 mL/dL (15.0-23.0); O2HB 94.1 % (95.0-99.0); PCO2(98.6) 29 mmHg (35-45); PO2(98.6) 77 mmHg (60-100); SAMPLE BLOOD; SAO2 97.6 % (95.0-100.0); THB 9.2 g/dL (11.5-17.4); pH(98.6) 7.47 (7.35-7.45)
[2019-01-06 04:56] LABS: MODALITY CANNULA
[2019-01-06] MEDS: HUMULIN R SUBQ SCH ×4 (06:27→20:44)
--- NOTE | 2019-01-06 06:36 | Diag Imaging Result Doc PS360 ---
CHEST-PORTABLE - 01/06/2019 INDICATION: pulmonary edema COMPARISON: 01/05/2019 FINDINGS: Stable right central line. Stable cardiomegaly and significant pulmonary vascular congestion. Stable extensive, hazy interstitial infiltrates bilaterally, compatible with pulmonary edema. No large pleural effusion. IMPRESSION: No change from prior. Electronically signed by Daniel Schulte 01/06/2019 6:34 AM
[2019-01-06 06:37] LABS: ALBUMIN 2.7 g/dL (3.5-5.0); CALCIUM 8.3 mg/dL (8.8-10.2); CREATININE 4.8 mg/dL (0.7-1.2); PHOSPHORUS 5.8 mg/dL (2.7-4.5); POTASSIUM 3.4 mmol/L (3.5-5.1)
[2019-01-06] MEDS: NEXIUM IV SCH (07:23)
[2019-01-06] MEDS: MUCOMYST 20% INH SCH ×2 (07:42→20:00)
[2019-01-06] MEDS: LEVEMIR SUBQ SCH ×2 (08:48→20:45)
[2019-01-06 09:06] LABS: BASO# 0.15 X1000 (0.0-0.2); BASO% 1.2 % (0.0-0.8); EOS# 0.19 X1000 (0.0-0.7); EOS% 1.6 % (0.0-10.0); HEMATOCRIT 33.4 % (42.0-52.0); HEMOGLOBIN 11.7 g/dL (14.0-18.0); IMM GRAN# 0.06 X1000 (0.0-0.04); IMM GRAN% 0.5 % (0.0-0.5); LYMPH# 2.72 X1000 (1.2-3.4); LYMPH% 22.6 % (20.5-51.1); MCH 33.2 PG (27-31); MCV 94.3 FL (81-99); MONO% 15.8 % (1.7-9.3); MPV 11.9 FL (7.4-10.4); NEUT# 7.03 X1000 (1.4-6.5); NEUT% 58.3 % (42.2-75.2); PLT 123 X1000 (130-400); RBC 3.52 XMIL (4.7-6.1); RDW 14.9 % (11.5-14.5); WBC 12.31 X1000 (4.8-10.8)
[2019-01-06 09:23] LABS: ANISOCYTOSIS OCCASIONAL; LYMPHS 29 % (21-51); MONO 14 % (1-9); SEGS 57 % (42-75)
--- NOTE | 2019-01-06 10:12 | HEMO/ONC CONSULTATION ---
DATE: 01/02/2019 ADMITTING PHYSICIAN: Dr. Joselito Barry. REQUESTING PHYSICIAN: Dr. Joselito Barry. We appreciate this consult. CHIEF COMPLAINT: Thrombocytopenia. HISTORY OF PRESENT ILLNESS: Mr. Angelo Puri is a 57-year-old male with a history of diabetes mellitus type 2, coronary artery disease, myocardial infarction, congestive heart failure, intracranial bleed, thrombocytopenia, and hypertension. The patient was brought to the emergency department by EMS. He was found unresponsive and down by his sister. Upon arrival at [facility] emergency department, the patient's blood sugar was found to be 500 and he was in diabetic ketoacidosis. The patient was mentally altered and history was unable to be obtained at that time. He was ultimately transferred to [facility] ICU secondary to profound diabetic ketoacidosis with a blood sugar of 1369. The patient was also found to be thrombocytopenic with a platelet count of 51,000. 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 CBC drawn using a citrate tube has always revealed platelet counts within normal limits. Workup has not been done in the past and was negative. We are consulted as the patient has persistent thrombocytopenia. PAST MEDICAL HISTORY: As in HPI. PAST SURGICAL HISTORY: 1. Coronary artery bypass graft. 2. Appendectomy. SOCIAL HISTORY: The patient has a history of smoking cigarettes. He does not use alcohol or illicit drugs. FAMILY HISTORY: Negative for hematologic or oncologic disease. MEDICATION ON ADMISSION: As per medication reconciliation. ALLERGIES: The patient has no known drug allergies. REVIEW OF SYSTEMS: A 14 point review of systems was attempted and is unable to be obtained secondary to altered mental status. PHYSICAL EXAMINATION: General: Mr. Puri is a 58-year-old, male, lying supine in bed. Dyspneic, wearing a non-rebreather and quite anxious. Vital Signs: Temperature 99.5 degrees, blood pressure 151/102, heart rate 104, respirations 26, O2 saturation 96% on nonrebreather. HEENT: Normocephalic, atraumatic. Mucous membranes are pink and somewhat dry. Sclerae is anicteric. Extraocular movements intact. Neck: Supple. Lungs: With coarse breath sounds throughout. Cardiovascular: S1-S2 is heard without murmur, rub or gallop. The patient is tachycardic. Abdomen: Slightly distended. Nontender. Bowel sounds positive in all quadrants. No rebound or guarding noted. Extremities: Without clubbing, cyanosis, or edema. Dermatologic: No rashes, bruises or lesions. Neurologic: The patient is confused and minimally responsive. He is quite agitated at this time secondary to profound dyspnea. LABORATORY DATA: Hemoglobin 12.6, hematocrit 35.7, white blood cell count is 12.32, platelets 57,000. Fibrinogen is 6.84. D-dimer 7.56. PT 16.8, INR 1.26, PTT 37.6. Sodium 151, potassium 4.9, chloride 120, CO2 is 10, BUN 85, creatinine 7.0, and glucose is 316. ASSESSMENT AND PLAN: 1. Thrombocytopenia, likely pseudo thrombocytopenia. The patient has a history of pseudo thrombocytopenia. Workup in the past has been negative. We will draw all CBCs in the future on a citrate tube. We will continue to monitor. 2. Severe diabetic ketoacidosis. Currently on an insulin drip with improving glucose. 3. Acute kidney insufficiency. The patient is being followed by Dr. Ritter. Creatinine is elevated to 7.0. 4. Rhabdomyolysis, per hospitalist. 5. Metabolic encephalopathy. 6. Pancreatitis, per hospitalist. 7. Leukocytosis. Dr. Alvarez is currently following the patient, is on antibiotics. 8. We will follow along with you and make further recommendations pending outcomes. The above reflects the history and assessment and plan by Dr. Packer. Dictated by LAUREEN Jones for Boy Packer MD cc: LAUREEN Jones MD [facility]
--- NOTE | 2019-01-06 11:33 | GASTROENTEROLOGY CONSULTATION ---
DATE: 01/06/2019 REASON FOR CONSULTATION: Odynophagia. HISTORY OF PRESENT ILLNESS: Mr. Angelo Puri is a 57-year-old gentleman with a past medical history of hypertension, hyperlipidemia, coronary artery disease status post NM and bypass, CHF, prior intracranial bleed, pseudo thrombocytopenia, non insulin-dependent diabetes, chronic kidney disease, who initially presented on 12/30/2018 with altered mental status in the setting of DKA. He was admitted to the ICU where he was treated supportively with insulin drip and DKA protocol. He also was found to be in shock, found to have severe acidosis, hyperkalemia, acute kidney injury from ATN, fluid resuscitation. No pressors. He also was noted to have rhabdomyolysis. Yesterday he was started on a diet and reported feeling the sensation that his throat was raw while eating. He complained of also having some coughing as well. This morning he was able to tolerate a full liquid diet without issue. He denies a history of GERD, nausea or vomiting, abdominal pain, constipation, diarrhea, melena or hematochezia. He has never had a EGD or colonoscopy. He takes NSAIDs rarely. The patient does have some difficulty describing his symptoms. No overt dysphagia. PAST MEDICAL HISTORY: As per HPI. PAST SURGICAL HISTORY: He had a coronary artery bypass, appendectomy, left knee surgery x2, right thumb amputation. SOCIAL HISTORY: He is a former smoker, he quit in 2017. No alcohol or drug use. FAMILY HISTORY: No family history of GI malignancies. REVIEW OF SYSTEMS: As per HPI, otherwise 12 point review of systems is negative. HOME MEDICATIONS: Include Lasix, metoprolol, losartan, aspirin 81 mg. ALLERGIES: No known drug allergies. PHYSICAL EXAMINATION: Vital Signs: Temperature 98.9 degrees, heart rate 96, respiratory rate 20, blood pressure 136/89, O2 saturation 95% on 4 L nasal cannula. General: The patient is awake, alert, oriented, no acute distress. HEENT: Sclerae are anicteric. Moist mucous membranes. Extraocular motor intact. Oropharynx is clear with no evidence of thrush. Difficult to see his posterior oropharynx given his Mallampati score. Neck: He has a right IJ in place. Supple. No JVD. Cardiac: Regular rate and rhythm. No murmurs, rubs or gallops. Lungs: Clear to auscultation bilaterally. No wheezing, rales or rhonchi. Abdomen: Soft, nontender and nondistended. Normoactive bowel sounds. No rebound or guarding. Extremities: He has Stephen's in place. No obvious edema. No jaundice. Neurologic: Nonfocal. LABORATORY DATA: White count of 12.3, hemoglobin of 11.7, which has been stable over the last several days. Platelets of 123,000. ABG with pH of 7.47, pCO2 of 29, PO2 of 77. Sodium 137, potassium of 3.4, chloride of 97, bicarbonate 20, BUN of 43, creatinine of 4.8 down from 7.7, glucose of 126, calcium of 8.3, phosphorus of 5.8, CK of 166. Hepatitis panel on 01/03/2019 was negative. IMAGING: Abdominal ultrasound on 12/31/2018 showed fatty liver, a couple of right renal cysts one of which is relatively large, a tiny polyp or nonshadowing stone of the gallbladder likely of no significance. Chest x-ray today shows stable right central line, stable cardiomegaly and significant pulmonary vascular congestion. Stable extensive hazy interstitial infiltrates bilaterally compatible with pulmonary edema. No large pleural effusion. Head CT on 12/30/2018 was negative. ASSESSMENT AND PLAN: 1. Mr. Angelo Puri is a 58-year-old gentleman who has a past medical history of coronary artery disease status post bypass, non-alcoholic fatty liver disease on ultrasound who was admitted with altered mental status in the setting of severe DKA with hypotension. On presentation he was diagnosed with ATN, rhabdomyolysis, hyperkalemia requiring fluid resuscitation, insulin drip and control of his diabetes. GI was consulted for odynophagia versus sore throat. The patient is not the greatest historian, he says he has been tolerating a full liquid diet. This morning per RN the patient was able to taking p.o. without difficulty. He has been on a PPI IV twice daily with Nexium since it since 01/01/2019, it does not look like he is on any medications that could be causing him to have odynophagia. His oropharynx does not reveal any oral candidiasis. I will plan for him to have a esophagram today to evaluate for any luminal pathology including esophagitis, obstruction. Continue a full liquid diet, can advance to a mechanical soft as tolerated if the barium swallow does not show any obstruction. We will monitor him over the weekend, if his symptoms worsen or do not improve we can plan for a diagnostic EGD early next week. Other issues include abnormal LFTs with a hepatocellular pattern, this is likely from underlying fatty liver disease seen on ultrasound. Acute hepatitis panel was negative, no history of alcoholism, no evidence of cirrhosis by imaging or labs. He does have a history of pseudothrombocytopenia followed by Hematology. 2. Elevated lipase. The patient denies any abdominal pain, it does not appear that he has acute pancreatitis, anemia, unclear etiology. This could be not be dilutional in the setting of acute kidney injury and fluid resuscitation. No overt bleeding. The patient may benefit from outpatient EGD and colonoscopy when acute issues resolve unless we decide to do an EGD here in the hospital. # Odynophagia # SCHAFFER # AMS # Elevated lipase # [place] # DKA # Hypotension Thank you for this consult. We will follow with you. Please call with any questions or concerns. GENO
--- NOTE | 2019-01-06 13:45 | NEPHROLOGY PROGRESS NOTE ---
DATE: 01/06/2019 SUBJECTIVE: He is anticipating transfer to the floor. Remains anuric. Awake, alert. No complaints. OBJECTIVE: Vital Signs: Blood pressure 125/79, heart rate 88 respiration 19. Afebrile. Intake 480 mL and output 3 L but only 60 mL of urine output. General: No acute distress. Skin: Warm and dry. Conjunctivae are pink. Neck: Neck veins are not distended. Heart: Regular. Lungs: Equal. Abdomen: Soft. Bowel sounds present. Extremities: No edema. IMPRESSION: 1. Acute kidney injury. No improvement. 2. He will have his next routine hemodialysis treatment tomorrow. 3. He does have moderate hyperphosphatemia and moderate hypokalemia. 4. No specific intervention today. cc: Parviz Ritter MD
--- NOTE | 2019-01-06 13:51 | HEMO/ONC PROGRESS NOTE ---
DATE: 01/06/2019 CHIEF COMPLAINT: Thrombocytopenia. HISTORY OF PRESENT ILLNESS: Mr. Puri is a pleasant 57-year-old male, who is lying supine in bed. He has improved significantly and is alert and oriented x3. He denies any specific complaint at this time. PHYSICAL EXAMINATION: Constitutional: The patient is in no acute distress. Vital Signs: Temperature 98.9 degrees, blood pressure 140/85, heart rate 90 and respirations are 18, O2 saturation is 97% on room air. HEENT: Normocephalic, atraumatic. Mucous membranes are pink and moist. Sclerae anicteric. Extraocular movements intact. Neck: Supple. Lungs: Clear to auscultation bilaterally. Chest expansion is equal bilaterally. Cardiovascular: S1, S2 is heard. No murmurs, rubs or gallops. Abdomen: Nondistended. Extremities: No clubbing, cyanosis, or edema. Dermatologic: No rashes, bruises or lesions. Neurologic: The patient is awake, alert, oriented x3. He has no focal motor deficit. LABORATORY DATA: Hemoglobin 11.7, hematocrit 33.4, white blood cell count is 12.3, platelets 123,000. Sodium is 137, potassium 3.4, chloride 97, CO2 is 20, BUN 43, creatinine 4.8, and glucose is 126. ASSESSMENT AND PLAN: 1. Thrombocytopenia. Platelet count is currently stable at 123,000. CBC is currently being drawn on a citrate tube. Would continue. We have performed an extensive workup regarding thrombocytopenia in the past. Platelet count has been found to be normal when CBC drawn on citrate tube. We will continue to follow platelet count. 2. Severe diabetic ketoacidosis. Improving glucose at this time. 3. Acute kidney insufficiency. The patient is being followed by Dr. Ritter. Creatinine is trending down. He is currently undergoing hemodialysis. 4. Rhabdomyolysis. Improving per Hospitalist. 5. Metabolic encephalopathy. Much improved at this time. 6. Leukocytosis. Dr. Alvarez is currently following the patient and the patient is on antibiotics. We will sign off for the weekend. We are available if needed. Dictated by LAUREEN Jones for Otilia Loera MD cc: LAUREEN Jones MD I have seen and examined the patient and the above note reflects my history, physical exam, assessment and plan. Otilia Loera MD [facility]
--- NOTE | 2019-01-06 13:59 | PROGRESS NOTE ---
DATE: 01/06/2019 SUBJECTIVE: The patient is awake and alert. He states that it hurts when he tries to swallow anything solid. OBJECTIVE: Vital Signs: Temperature 98.3 degrees, blood pressure 110/63, heart rate 93, respirations 18, O2 saturation 96% on 4 L nasal cannula. General: This is a chronically ill- appearing, elderly male, lying in bed in no acute distress. Heart: S1, S2 normal. Regular rate and rhythm. Lungs: Clear to auscultation bilaterally. Abdomen: Positive bowel sounds. Soft, nontender, nondistended. Extremities: 1+ edema bilaterally in the lower extremities. Neurologic: The patient is alert and oriented x4. LABORATORY DATA: White blood cell count 12, hemoglobin 11, hematocrit 33, platelets 123,000. Sodium 137, potassium 3.4, chloride 97, CO2 20, BUN 43, creatinine 4.8, glucose 126, calcium 8.3. Phosphorus 5.8, albumin 2.7. ASSESSMENT AND PLAN: 1. Acute hypoxemic respiratory failure. Continue to wean the supplemental oxygen. 2. Volume overload. Slowly improving. 3. Acute kidney injury with anuria. Management as per the television program director. 4. Rhabdomyolysis. Resolved. 5. Acute pancreatitis. Resolving. The patient denies having any abdominal pain. 6. Fatty liver disease. Aware. 7. Odynophagia. GI has been consulted. We will await further recommendations. 8. Nutrition. We will switch the patient to a full liquid diet pending GI evaluation for odynophagia. 9. Insulin-dependent diabetes mellitus. Continue on Levemir plus sliding scale insulin. 10. Diabetic ketoacidosis. Resolved. 11. Gastrointestinal prophylaxis. Continue on Nexium. 12. Disposition. We will transfer the patient to the medical floor and consult with Physical therapy. cc: Tameka Richards MD [facility]
--- NOTE | 2019-01-06 14:53 | Diag Imaging Result Doc PS360 ---
EXAM: BA SWALLOW-ESOPHAGUS 01/06/2019 HISTORY: odynophagia TECHNIQUE: Barium swallow, eight images, 58 seconds fluoroscopy time, 721.9 cGy. COMMENT: The study was difficult due to the patient's clinical condition and inability to stand. Patient was able to swallow barium without difficulty and there is no evidence of stricture, fixed intraluminal filling defect, or mucosal ulceration. No reflux was demonstrated during the examination. IMPRESSION: No evidence of acute disease. Electronically signed by Antonio Candelario 01/06/2019 2:51 PM
[2019-01-07] MEDS: DUONEB (A & A) INH SCH ×6 (00:18→20:25)
[2019-01-07] MEDS: LOPRESSOR IV SCH (03:55)
[2019-01-07] MEDS: NEXIUM IV SCH (06:36)
[2019-01-07] MEDS: HUMULIN R SUBQ SCH ×4 (07:04→20:48)
[2019-01-07] MEDS: MUCOMYST 20% INH SCH ×2 (07:45→20:24)
[2019-01-07 08:04] LABS: HEMOGLOBIN 11.2 g/dL (14.0-18.0); MCH 33.4 PG (27-31); MCHC 33.9 g/dL (33-37); MCV 98.5 FL (81-99); MPV 11.4 FL (7.4-10.4); RBC 3.35 XMIL (4.7-6.1); RDW 14.9 % (11.5-14.5); WBC 14.26 X1000 (4.8-10.8)
[2019-01-07 08:45] LABS: ALBUMIN 2.6 g/dL (3.5-5.0); CALCIUM 8.4 mg/dL (8.8-10.2); CREATININE 7.1 mg/dL (0.7-1.2); PHOSPHORUS 8.5 mg/dL (2.7-4.5); POTASSIUM 3.8 mmol/L (3.5-5.1)
[2019-01-07] MEDS ORDERED: NS 2,000 ML MISC PRN (08:50)
--- NOTE | 2019-01-07 10:15 | PROGRESS NOTE ---
DATE: 01/07/2019 SUBJECTIVE: The patient is resting comfortably in bed. No acute events noted overnight. OBJECTIVE: Vital Signs: Temperature 98 degrees, blood pressure 141/86, heart rate 88, respirations 16, O2 saturation 99% on 2 L nasal cannula. General: This is a morbidly obese male lying in bed in no acute distress. Head: Normocephalic, atraumatic. Heart: S1, S2 normal. Regular rate and rhythm. Lungs: Equal air entry bilaterally. No wheezing. No rales. No rhonchi. Abdomen: Positive bowel sounds. Soft, nontender, nondistended. Extremities: No edema. No cyanosis. Neurologic: The patient is alert and oriented x3. LABS: White blood cell count 14, hemoglobin 11, hematocrit 33, platelets 65,000. Sodium 137, potassium 3.8, chloride 97, CO2 18, BUN 64, creatinine 7.1, glucose 117. ASSESSMENT AND PLAN: 1. Acute hypoxemic respiratory failure. Resolved. 2. Acute kidney injury with anuria. Management as per the gold wheel blocker and polisher. 3. Acute pancreatitis. Resolved. 4. Rhabdomyolysis. Resolved. 5. Fatty liver disease. Aware. 6. Odynophagia. GI is following. Continue on Nexium. 7. Diabetic ketoacidosis. Resolved. 8. Insulin-dependent diabetes mellitus. Continue on Levemir plus sliding scale insulin. 9. Morbid obesity. Aware. 10. Thrombocytopenia. Unchanged. Will continue to monitor closely. 11. Disposition. Continue with physical therapy. cc: Tameka Richards MD
[2019-01-07] MEDS: LEVEMIR SUBQ SCH ×2 (11:02→20:50)
--- NOTE | 2019-01-07 14:15 | NEPHROLOGY PROGRESS NOTE ---
DATE: 01/07/2019 SUBJECTIVE: He is currently receiving dialysis. No new complaints. Still no urine output. OBJECTIVE: Vital Signs: Blood pressure 141/86, heart rate 88, respirations 16, afebrile. Intake 300 mL. Output 20 mL. General: No acute distress. Skin: Warm and dry. Neck: Neck veins are distended. Heart: Regular. Lungs: Equal. No crackles. Abdomen: Soft, nontender. Bowel sounds present. Extremities: No edema, clubbing or cyanosis. IMPRESSION: 1. Acute kidney injury. No recovery. Continue dialysis today with goal of 2 to 3 L ultrafiltration using a 3 K bath. 2. Electrolytes/acid base acceptable. Continue current plan. 3. Anemia in target. 4. Access: If no recovery will need a tunneled catheter the first of the week. cc: Parviz Ritter MD
[2019-01-07] MEDS: ZOFRAN IV PRN (14:24)
--- NOTE | 2019-01-07 23:52 | PROVIDER PROGRESS NOTE ---
Progress Note S: No acute overnight events. Patient tolerated sausage, egg, oatmeal today without dysphagia or odynophagia. No N/V, abdominal pain. O: Last Vital Signs Temp 98.1 F 01/07/19 19:43 Pulse 93 H 01/07/19 20:25 Resp 18 01/07/19 20:25 BP 109/61 01/07/19 19:43 Pulse Ox 96 01/07/19 20:25 Height 6 ft Weight 231 lb 0.711 oz GEN: awake, alert, NAD, undergoing dialysis HEENT: anicteric, MMM NECK: supple CV: RRR, no murmurs LUNGS: CTAB, no wheezing ABD: obese, soft NT/ND, NABS EXT: no cce NEURO: nonfocal LABS: 01/07/19 01/07/19 07:28 07:28 WBC 14.26 H Hgb 11.2 L Plt Count 65 L D Sodium 137 Potassium 3.8 Chloride 97 L Carbon Dioxide 18 L BUN 64 H Creatinine 7.1 H Glucose 117 H Albumin 2.6 L Esophagram 01/06 EXAM: BA SWALLOW-ESOPHAGUS 01/06/2019 HISTORY: odynophagia TECHNIQUE: Barium swallow, eight images, 58 seconds fluoroscopy time, 721.9 cGy. COMMENT: The study was difficult due to the patient's clinical condition and inability to stand. Patient was able to swallow barium without difficulty and there is no evidence of stricture, fixed intraluminal filling defect, or mucosal ulceration. No reflux was demonstrated during the examination. IMPRESSION: No evidence of acute disease. A/P: Mr. Angelo Puri is a 58-year-old gentleman with CAD s/p CABG, pseudothrombocytopenia, and NALFD who was admitted with AMS in the setting of hypotension in the setting of DKA. Other findings on admission include ATN, rhabdomyolysis, hyperkalemia. GI consulted for oyndophagia. Esophagram was normal yesterday. He is tolerating solid diet this AM without GI complaints. He is on PPI. # Odynophagia: resolved; continue PPI. No indication for endoscopic evaluation at this time # NALFD: noted # Anemia: hgb stable; no overt bleeding; recommend outpatient EGD/colonoscopy when acute issues resolve # ATN: on HD per renal Will sign off. Please call with questions or concerns.
[2019-01-08] MEDS: DUONEB (A & A) INH SCH ×7 (00:11→22:44)
[2019-01-08] MEDS: SODIUM CHLORIDE 0.9% INJ SCH (06:28)
[2019-01-08] MEDS: NEXIUM IV SCH (06:28)
[2019-01-08] MEDS: HUMULIN R SUBQ SCH ×4 (06:32→20:56)
[2019-01-08] MEDS: MUCOMYST 20% INH SCH ×2 (07:22→20:29)
[2019-01-08 07:56] LABS: BASO# 0.11 X1000 (0.0-0.2); BASO% 0.9 % (0.0-0.8); EOS# 0.18 X1000 (0.0-0.7); EOS% 1.4 % (0.0-10.0); HEMATOCRIT 38.3 % (42.0-52.0); HEMOGLOBIN 12.6 g/dL (14.0-18.0); IMM GRAN# 0.05 X1000 (0.0-0.04); IMM GRAN% 0.4 % (0.0-0.5); LYMPH# 2.38 X1000 (1.2-3.4); LYMPH% 18.7 % (20.5-51.1); MCH 32.6 PG (27-31); MCHC 32.9 g/dL (33-37); MONO% 9.4 % (1.7-9.3); MPV 10.2 FL (7.4-10.4); NEUT# 8.81 X1000 (1.4-6.5); NEUT% 69.2 % (42.2-75.2); PLT 92 X1000 (130-400); RBC 3.87 XMIL (4.7-6.1); RDW 15.3 % (11.5-14.5); WBC 12.73 X1000 (4.8-10.8)
[2019-01-08 08:04] LABS: ALBUMIN 3.2 g/dL (3.5-5.0); CALCIUM 9.5 mg/dL (8.8-10.2); PHOSPHORUS 8.1 mg/dL (2.7-4.5); POTASSIUM 4.1 mmol/L (3.5-5.1)
[2019-01-08 08:12] LABS: CREATININE 5.6 mg/dL (0.7-1.2)
[2019-01-08] MEDS: LEVEMIR SUBQ SCH ×2 (10:24→21:22)
[2019-01-08] MEDS ORDERED: MIRALAX PO ONE (11:26)
[2019-01-08] MEDS: COLACE PO SCH ×2 (11:42→20:56)
[2019-01-08] MEDS: ZOFRAN IV PRN (12:53)
--- NOTE | 2019-01-08 14:55 | Diag Imaging Result Doc PS360 ---
EXAM: CT ABDOMEN/PELVIS W/O CONTRAST 01/08/2019 HISTORY: hematuria TECHNIQUE: This exam was performed using automated exposure control, adjustment of mA or kV according to patient size, and/or use of iterative reconstruction technique. COMMENT: There is fibrosis and/or atelectasis in both lung bases. There are no previous studies available for comparison. There are no gallstones. There is edema throughout the pancreas. The pancreas is generally swollen. The adrenal glands are not enlarged. The spleen is not enlarged. There is a granuloma in the spleen. The kidneys are without evidence of hydronephrosis or stones. There are multiple right renal cysts, one of which measures over 7.4 cm. The aorta is partially calcified but is not distended. There is no evidence of bowel obstruction. There is some retained barium in the colon from the previous barium swallow. There is no evidence of free fluid. There is a Riggs catheter in the bladder. There are bone islands in the proximal left femur. There are degenerative facet changes at L5-S1 and L4-5. There is no evidence of acute bony abnormality. IMPRESSION: Acute pancreatitis. Right renal cysts. Electronically signed by Antonio Candelario 01/08/2019 2:52 PM
--- NOTE | 2019-01-08 15:07 | PROGRESS NOTE ---
DATE: 01/08/2019 SUBJECTIVE: The patient has been having hematuria. A little bit of urine that he makes is bloody. OBJECTIVE: Vital Signs: Temperature 97.6 degrees, blood pressure 110/78, heart rate 94, respirations 18, O2 saturation 99% on 2 L nasal cannula. General: This is a chronically ill- appearing elderly male lying in bed in no acute distress. Heart: S1, S2 normal. Regular rate and rhythm. Lungs: Clear to auscultation bilaterally. No wheezing. No rales. No rhonchi. Abdomen: Positive bowel sounds. Soft, nontender, nondistended. Extremities: Trace pedal edema. No cyanosis. No calf tenderness. Groin: The scrotum has some ulcerations on it. There is also an ulcer on the glans of the penis with dried blood on it. Neurologic: The patient is alert and oriented x4. LABORATORY DATA: White blood cell count 12, hemoglobin 12, hematocrit 38, platelets 92,000. Sodium 137, potassium 4.1, chloride 93, CO2 22, BUN 47, creatinine 5.6. ASSESSMENT AND PLAN: 1. Acute hypoxemic respiratory failure. Resolved. 2. Acute kidney injury with anuria. Management as per the dowel setting machine operator. 3. Hematuria. The patient has a Riggs catheter in place. We will order a CT of the abdomen and pelvis. We will also consult with the urologist. 4. Acute pancreatitis. Resolved. 5. Rhabdomyolysis. Resolved. 6. Fatty liver disease. Aware. 7. Diabetic ketoacidosis. Resolved. 8. Insulin-dependent diabetes mellitus. Continue on Levemir and sliding scale insulin. 9. Morbid obesity. Aware. 10. Thrombocytopenia. Improved. DISPOSITION: Continue with Physical Therapy. cc: Tameka Richards MD
[2019-01-08] MEDS: LACTULOSE PO SCH (20:56)
[2019-01-08] MEDS: MIRALAX PO SCH (20:56)
[2019-01-09] MEDS: DUONEB (A & A) INH SCH ×6 (03:44→23:12)
[2019-01-09] MEDS: HUMULIN R SUBQ SCH ×4 (06:20→21:17)
[2019-01-09] MEDS: SODIUM CHLORIDE 0.9% INJ SCH (06:21)
[2019-01-09] MEDS: NEXIUM IV SCH (06:21)
[2019-01-09 08:22] LABS: BASO# 0.02 X1000 (0.0-0.2); BASO% 0.2 % (0.0-0.8); EOS# 0.21 X1000 (0.0-0.7); EOS% 1.9 % (0.0-10.0); HEMATOCRIT 33.2 % (42.0-52.0); HEMOGLOBIN 11.4 g/dL (14.0-18.0); IMM GRAN# 0.02 X1000 (0.0-0.04); IMM GRAN% 0.2 % (0.0-0.5); LYMPH# 2.28 X1000 (1.2-3.4); LYMPH% 20.6 % (20.5-51.1); MCH 33.1 PG (27-31); MCHC 34.3 g/dL (33-37); MCV 96.5 FL (81-99); MONO# 0.68 X1000 (0.11-0.59); MONO% 6.1 % (1.7-9.3); MPV 11.1 FL (7.4-10.4); NEUT# 7.88 X1000 (1.4-6.5); PLT 171 X1000 (130-400); RBC 3.44 XMIL (4.7-6.1); RDW 14.3 % (11.5-14.5); WBC 11.09 X1000 (4.8-10.8)
[2019-01-09] MEDS: MUCOMYST 20% INH SCH ×2 (08:25→21:26)
[2019-01-09 08:41] LABS: CALCIUM 8.7 mg/dL (8.8-10.2); CREATININE 7.1 mg/dL (0.7-1.2); POTASSIUM 4.1 mmol/L (3.5-5.1)
[2019-01-09] MEDS ORDERED: HEPARIN IV PRN (08:45)
[2019-01-09] MEDS ORDERED: TIGHT: 0.2 ML/HR FOR DIALYSIS MISC PRN (08:45)
[2019-01-09] MEDS ORDERED: NS 2,000 ML MISC PRN (08:45)
--- NOTE | 2019-01-09 09:02 | Diag Imaging Result Doc PS360 ---
EXAM: CHEST-1 VIEW INDICATION: SOB TECHNIQUE: One view COMPARISON: 01/06/2019 FINDINGS: The right central line is in stable position. The interstitial infiltrates seen previously have improved suggesting improving edema. No new consolidation is identified. Cardiac silhouette is essentially stable. IMPRESSION: Improvement in pulmonary edema. Electronically signed by Patricio Shay 01/09/2019 9:00 AM
[2019-01-09] MEDS: COLACE PO SCH ×2 (09:23→21:11)
[2019-01-09] MEDS: LACTULOSE PO SCH ×2 (09:23→21:10)
[2019-01-09] MEDS: MIRALAX PO SCH ×2 (09:24→21:11)
[2019-01-09] MEDS ORDERED: INSULIN PEN NEEDLES ONE (11:19)
[2019-01-09] MEDS: LEVEMIR SUBQ SCH ×2 (13:59→21:11)
[2019-01-09] MEDS: ZOFRAN IV PRN (15:29)
--- NOTE | 2019-01-09 16:55 | PROGRESS NOTE ---
DATE: 01/09/2019 SUBJECTIVE: The patient is resting comfortably in bed. He states that he wants to try solid food today. OBJECTIVE: Vital Signs: Temperature 98.3 degrees, blood pressure 138/78, heart rate 85, respirations 18, O2 saturation is 100% on 2 L nasal cannula. General: This is a chronically ill- appearing elderly male, lying in bed in no acute distress. Heart: S1, S2 normal. Regular rate and rhythm. Lungs: Equal air entry bilaterally. No wheezing. No rales. No rhonchi. Abdomen: Positive bowel sounds. Soft, nontender, nondistended. Extremities: No edema, no cyanosis. Neurologic: The patient is alert and oriented x4. LABORATORY DATA: White blood cell count 11, hemoglobin 11, hematocrit 33 platelets 171,000. Sodium 136, potassium 4.1, chloride 93, CO2 of 19, BUN 69, creatinine 7.1, glucose 154, lipase 155. ASSESSMENT AND PLAN: 1. Acute hypoxemic respiratory failure. Resolved. 2. Pulmonary edema. Improved. 3. Acute kidney injury with anuria. The patient is due for dialysis tomorrow. Further management as per the frame straightener. 4. Acute pancreatitis. Improved. We will advance the patient's diet today. 5. Rhabdomyolysis. Resolved. 6. Fatty liver disease. Aware. 7. Diabetic ketoacidosis. Resolved. 8. Insulin-dependent diabetes mellitus. Continue on Levemir and sliding scale insulin. 9. Thrombocytopenia. Resolved. 10. Morbid obesity. Aware. 11. UTI. Will start Rocephin. Follow up culture results. 12. Continue with physical therapy. DISPOSITION: We will consult with Mergers And Acquisitions Manager for discharge planning. cc: Tameka Richards MD [facility]
--- NOTE | 2019-01-09 17:24 | NEPHROLOGY PROGRESS NOTE ---
DATE: 01/09/2019 SUBJECTIVE: The patient resting in bed. He is asking if he can have the Riggs catheter out. OBJECTIVE: Vital Signs: Temperature 97.8, pulse 86, respiratory rate 18, blood pressure 120/72. Intake not measured. Output 10 mL. He had 3.5 on his last UF removal. PHYSICAL EXAMINATION: General: This is a middle-aged gentleman resting in bed. He is awake and alert. He is in no acute distress. HEENT: Normocephalic, atraumatic. PERRL. Neck: Supple. He has a Vas-Cath right IJ Cardiovascular: Regular rate and rhythm. Pulmonary: He has equal excursion. He is clear bilaterally. Abdomen: Soft with positive bowel sounds. : He has a Riggs catheter. Small amount of yellow urine. Extremities: No clubbing, cyanosis, edema. Integumentary: Skin is warm and dry. Neurologic: Grossly nonfocal. LAB DATA: Pending. ASSESSMENT AND PLAN: 1. Acute kidney injury. We will check his labs and make a decision if we will go ahead and dialyze today. Thus far, he has not had recovery. From a renal perspective though we can go ahead and remove the Riggs catheter and then pull his Vas-Cath after his dialysis today. 2. If he does need continued dialysis he will have to have a tunneled catheter placed and we would need outpatient arrangements made. Dictated by LAUREEN Wyatt for Parviz Ritter MD Face to face encounter, data reviewed, discussed with Tori Hamm on 01/09/19. I agree with the above assessment and plan of care. cc: Parviz Ritter MD [facility]
[2019-01-09 19:02] LABS: URINE SOURCE CATH
[2019-01-09 19:10] LABS: BILIRUBIN URINE SMALL (NEGATIVE); BLOOD URINE LARGE (NEGATIVE); COLOR ORANGE; GLUCOSE URINE NEGATIVE (NEGATIVE); KETONE URINE NEGATIVE (NEGATIVE); LEUKOCYTES URINE LARGE (NEGATIVE); NITRITE URINE NEGATIVE (NEGATIVE); PH URINE 5.5; PROTEIN URINE 100 mg/dL (NEGATIVE); SP GRAVITY URINE 1.022; TURBIDITY URINE TURBID (CLEAR); UR EPITHELIAL CELLS <10 /HPF (<10); URINE BACTERIA NEGATIVE /HPF; URINE RBC TNTC /HPF (<10); URINE WBC TNTC /HPF (<10); UROBILINOGEN URINE NORMAL (NORMAL)
[2019-01-09 19:23] LABS: URINE CASTS NONE SEEN; URINE CRYSTALS NONE SEEN; URINE SMALL ROUND CELLS TRANS PRESENT; URINE YEAST NONE SEEN
[2019-01-09] MEDS: ROCEPHIN 1 GM in NS 50 ML IV SCH (23:20)
[2019-01-10] MEDS: DUONEB (A & A) INH SCH ×6 (03:51→22:50)
[2019-01-10] MEDS: HUMULIN R SUBQ SCH ×4 (06:02→20:40)
[2019-01-10] MEDS: NEXIUM PO SCH (06:15)
[2019-01-10 07:01] LABS: BASO# 0.04 X1000 (0.0-0.2); BASO% 0.4 % (0.0-0.8); EOS# 0.19 X1000 (0.0-0.7); EOS% 1.9 % (0.0-10.0); HEMATOCRIT 31.3 % (42.0-52.0); HEMOGLOBIN 10.3 g/dL (14.0-18.0); IMM GRAN# 0.03 X1000 (0.0-0.04); IMM GRAN% 0.3 % (0.0-0.5); LYMPH# 1.91 X1000 (1.2-3.4); LYMPH% 18.8 % (20.5-51.1); MCH 33.2 PG (27-31); MCHC 32.9 g/dL (33-37); MONO# 0.92 X1000 (0.11-0.59); MONO% 9.1 % (1.7-9.3); MPV 10.8 FL (7.4-10.4); NEUT# 7.06 X1000 (1.4-6.5); NEUT% 69.5 % (42.2-75.2); RDW 14.4 % (11.5-14.5); WBC 10.15 X1000 (4.8-10.8)
[2019-01-10 07:15] LABS: ALBUMIN 2.6 g/dL (3.5-5.0); CALCIUM 8.9 mg/dL (8.8-10.2); CREATININE 7.7 mg/dL (0.7-1.2); PHOSPHORUS 12.3 mg/dL (2.7-4.5); POTASSIUM 4.5 mmol/L (3.5-5.1)
[2019-01-10] MEDS ORDERED: NS 2,000 ML MISC PRN (07:23)
[2019-01-10] MEDS ORDERED: HEPARIN IV PRN (07:23)
[2019-01-10] MEDS: MUCOMYST 20% INH SCH ×2 (07:29→19:23)
[2019-01-10 08:21] LABS: PLT 204 X1000 (130-400)
[2019-01-10] MEDS: LACTULOSE PO SCH ×2 (13:56→20:39)
[2019-01-10] MEDS: LEVEMIR SUBQ SCH (13:57)
--- NOTE | 2019-01-10 15:10 | NEPHROLOGY PROGRESS NOTE ---
DATE: 01/10/2019 SUBJECTIVE: The patient is resting in bed. He had significant nausea and vomiting yesterday. OBJECTIVE: Vital signs: Afebrile, pulse 82, respiratory rate 18, blood pressure 125/69. Intake not measured. Output 235 mL plus some void that was incontinent. General: This is a middle-aged gentleman resting in bed. Awake, alert, no acute distress. HEENT: Normocephalic and atraumatic. PERRL. Oral mucosa moist. Neck: Supple. He continues with a Vas-Cath to the right IJ. Cardiovascular: Regular rate and rhythm. Pulmonary: He is clear today, equal excursion. Abdomen: Soft. Positive bowel sounds. : He is now voiding. Extremities: No cyanosis, clubbing, or edema. Integumentary: Skin is warm and dry. LAB DATA: WBC is 10.1, hemoglobin 10.3. Sodium 132, potassium 4.5, CO2 is 15, creatinine 7.7 (7.1). Phosphorus 12.3. ASSESSMENT AND PLAN: 1. Acute kidney injury. We were unable to dialyze yesterday. We will plan to dialyze today and then pull his Vas-Cath. His creatinine did not rise significantly, although he is in the upper 7's today. I did discuss with the patient the possibility of him requiring outpatient dialysis during recovery. 2. Acute pancreatitis, improved, followed by primary. 3. Urinary tract infections, on Rocephin. 4. Disposition. The patient is being seen for discharge planning. We will check his labs in the morning but will anticipate that we will need to have a tunnel catheter placed before discharge for continued renal replacement therapy. Dictated by LAUREEN Wyatt for Parviz Ritter MD Face to face encounter, data reviewed, discussed with Tori Hamm on 01/10/19. I agree with the above assessment and plan of care. cc: Parviz [facility]itter MD [facility]
[2019-01-10] MEDS: COLACE PO SCH ×2 (15:41→20:39)
[2019-01-10] MEDS: MIRALAX PO SCH ×2 (15:41→20:39)
[2019-01-10] MEDS: ZOFRAN IV PRN (16:19)
--- NOTE | 2019-01-10 17:08 | PROGRESS NOTE ---
DATE: 01/10/2019 PHYSICIAN: He is a patient of Dr. Daniel Calvillo. HISTORY OF PRESENT ILLNESS: This is a 58-year-old who presented with altered mental status and unresponsive. He has a history of diabetes mellitus type 2, coronary artery disease, myocardial infarction, congestive heart failure, intracranial bleed, thrombocytopenia, and hypertension. He was brought to the emergency department and found to be unresponsive. EMS stated the sister called to do a welfare check. However, they could not open the door. They came when the landlord was there and found the patient unresponsive under a fan. They checked his blood sugar and it was 500. Initially sent to [facility] and found in DKA. Subsequently, due to lack of ICU beds, he was transferred to [facility]. At time of examination, he is very altered and could not give much history. PAST MEDICAL HISTORY: Once again reviewed past medical history in what includes diabetes mellitus type 2, coronary artery disease status post myocardial infarction, congestive heart failure, intracranial bleed, thrombocytopenia, and hypertension. PAST SURGICAL HISTORY: He has had coronary bypass grafting and appendectomy. ADMISSION DIAGNOSES: 1. Altered mental status, unresponsive. 2. Diabetic ketoacidosis. 3. Hypertension. 4. Acute kidney disease. 5. Hyperkalemia. 6. Thrombocytopenia. 7. Coronary artery disease. PHYSICAL EXAMINATION: general: He is awake and alert. He is complaining of fatigue and lethargy and not able to ambulate much. vital signs: Temp 98.6 degrees, pulse 96, respirations 18, blood pressure 99/66. heent: Pupils are equal and round. lungs: Lungs are clear in all lung mckinley. Cardiovascular: Regular rhythm and rate without murmur or S3. abdomen: Abdomen is soft. skin: Skin is warm and dry. URINE OUTPUT: 435 mL. ASSESSMENT AND PLAN: 1. Acute hypoxemic respiratory failure likely secondary to volume overload. The patient is getting sustained low efficiency dialysis treatment at this time. 2. Volume overload acute pulmonary edema. 3. Diabetic ketoacidosis. Remains on the protocol. Sugars are doing better. I think overall doing better. No nausea. He is eating. 4. Acute kidney injury with oliguria. The patient on sustained low efficiency dialysis treatment and continues to show improvement. 5. Rhabdomyolysis which is improved. 6. Thrombocytopenia, stable. 7. Acute pancreatitis which is improving. Lipase is going down. 8. Fatty liver disease. Aware. 9. Continue gastrointestinal prophylaxis. I think he has a bed at [facility] and looking to pursue rehabilitation. REVIEW OF HIS ORDERS: I do not see any change at this point. LABORATORY DATA FROM THIS MORNING: White count 10,150, hematocrit is 31, platelet count is 204,000. Chemistries: Sodium 132, potassium 4.45, chloride 90, BUN 81, creatinine 7.7. Blood sugars 177, 137, 134, and 139. cc: Lowell Zepeda MD
[2019-01-10] MEDS: HUMULIN 70/30 SUBQ SCH (17:28)
[2019-01-10] MEDS: ROCEPHIN 1 GM in NS 50 ML IV SCH (20:39)
[2019-01-11] MEDS: DUONEB (A & A) INH SCH ×6 (03:05→23:03)
[2019-01-11 05:00] LABS: BASO# 0.06 X1000 (0.0-0.2); BASO% 0.9 % (0.0-0.8); EOS# 0.17 X1000 (0.0-0.7); EOS% 2.4 % (0.0-10.0); HEMATOCRIT 32.3 % (42.0-52.0); HEMOGLOBIN 10.7 g/dL (14.0-18.0); IMM GRAN# 0.02 X1000 (0.0-0.04); IMM GRAN% 0.3 % (0.0-0.5); LYMPH# 2.07 X1000 (1.2-3.4); LYMPH% 29.6 % (20.5-51.1); MCH 32.8 PG (27-31); MCHC 33.1 g/dL (33-37); MCV 99.1 FL (81-99); MONO# 0.68 X1000 (0.11-0.59); MONO% 9.7 % (1.7-9.3); MPV 10.8 FL (7.4-10.4); NEUT# 3.99 X1000 (1.4-6.5); NEUT% 57.1 % (42.2-75.2); RBC 3.26 XMIL (4.7-6.1); RDW 14.2 % (11.5-14.5); WBC 6.99 X1000 (4.8-10.8)
[2019-01-11 05:30] LABS: PLT 116 X1000 (130-400)
[2019-01-11] MEDS: NEXIUM PO SCH (06:13)
[2019-01-11] MEDS: HUMULIN R SUBQ SCH ×4 (06:13→22:15)
[2019-01-11] MEDS: MUCOMYST 20% INH SCH ×2 (07:29→21:28)
[2019-01-11] MEDS: COLACE PO SCH ×2 (09:00→22:01)
[2019-01-11] MEDS: HUMULIN 70/30 SUBQ SCH ×2 (09:00→17:27)
[2019-01-11] MEDS: LACTULOSE PO SCH ×2 (09:01→22:01)
[2019-01-11] MEDS: MIRALAX PO SCH ×2 (09:02→22:01)
--- NOTE | 2019-01-11 11:10 | NEPHROLOGY PROGRESS NOTE ---
DATE: 01/11/2019 SUBJECTIVE: The patient is resting in bed. He states that he has not made much urine overnight. OBJECTIVE: Vital Signs: Temperature 98.3 degrees, pulse 93, respiratory rate 16, blood pressure 115/66. Intake not measured. Output 2.3 L. Two liters of this was UF removal on dialysis and 300 mL was urine output. Patient is incontinent. General: This is a middle-aged gentleman resting in bed. He is awake and alert. He is in no acute distress. HEENT: Normocephalic, atraumatic. CORDELIA. Neck: Supple, without JVD. Cardiovascular: Regular rate and rhythm. Pulmonary: He is clear bilaterally. Abdomen: Soft, with positive bowel sounds. : He is voiding. Extremities: No clubbing, cyanosis. Perhaps trace edema. Integumentary: Skin is warm and dry. Neurologic: Grossly nonfocal. Lab Data: Hemoglobin 10.7. His other labs are pending. ASSESSMENT AND PLAN: 1. Acute kidney injury. Went ahead and dialyzed yesterday and then pulled his Vas-Cath. We will check his labs in the morning to determine if he has had worsening renal function without dialysis. We anticipate this will be so. We will make him nothing per oral after midnight and reach out to surgery and plan for a tunneled catheter if that is the case. 2. Electrolytes, acid-base balance, anemia. These have been stable thus far. 3. Urinary tract infection. Continues on ceftriaxone. Dictated by LAUREEN Wyatt for Parviz Ritter MD Face to face encounter, data reviewed, discussed with Tori Hamm on 01/11/19. I agree with the above assessment and plan of care. cc: Parviz Ritter MD [facility]
--- NOTE | 2019-01-11 15:40 | PROGRESS NOTE ---
DATE: 01/11/2019 Mr. Puri is feeling a little better. He is still pretty weak. He does not think he is ready go home. He wants to try and go to rehab but I do not think he would be eligible. He is self-pay. Temperature 97.8 degrees, pulse 90, respirations 18, blood pressure 112/64. Pupils are equal and round. Lungs are clear in all lung mckinley. Cardiovascular exam regular rhythm and rate without murmur or S3. Abdomen is soft. Skin is warm and dry. Blood sugar 211, 204, 226. ASSESSMENT AND PLAN: 1. Acute hypoxemic respiratory failure likely secondary to volume overload and sustained low efficiency dialysis has been done. His volume status is better. 2. Volume overload pulmonary edema, improved. 3. Diabetic ketoacidosis and this is resolved. Continues insulin. We are trying to get him insulin he can afford at home. He is on 70/30. I gave him a glucometer. 4. Acute kidney injury with oliguria. The patient sustained his low efficiency dialysis treatment with slow improvement. 5. Rhabdomyolysis, which resolved. 6. Thrombocytopenia, stable. 7. Acute pancreatitis, improving. Lipase going down. 8. Fatty liver disease. 9. Continue GI prophylaxis. 10. Review of his orders: I do not see any change. The patient on Nexium 40 mg a day, low-dose heparin 5000 units. He gets p.r.n. and getting 70/30 right now, 20 units twice a day, lactulose 30 mL twice a day, MiraLAX 17 g b.i.d. His lab blood sugars have been reasonably controlled. Note his creatinine is 7.7. We are going to continue physical therapy, work on his strength. Hopefully, he can go home soon. cc: Lowell Zepeda MD
--- NOTE | 2019-01-11 15:40 | PROGRESS NOTE ---
DATE: 01/11/2019 ADDENDUM: He has acute kidney injury and really have not seen any improvement. We are going to continue dialysis. He did have moderate phosphatemia and moderate hypokalemia, but we are going to have to see significant renal function before. Otherwise, decide on whether he is going to need long-term dialysis. cc: Lowell Zepeda MD
[2019-01-11] MEDS: ATARAX PO PRN (22:14)
[2019-01-11] MEDS: ROCEPHIN 1 GM in NS 50 ML IV SCH (22:15)
[2019-01-12] MEDS: DUONEB (A & A) INH SCH ×4 (04:04→21:55)
[2019-01-12] MEDS: NEXIUM PO SCH (06:21)
[2019-01-12] MEDS: HUMULIN R SUBQ SCH ×4 (06:21→21:49)
[2019-01-12 07:24] LABS: HEMOGLOBIN 10.5 g/dL (14.0-18.0); MCH 32.2 PG (27-31); MCHC 32.8 g/dL (33-37); MCV 98.2 FL (81-99); MPV 10.8 FL (7.4-10.4); RBC 3.26 XMIL (4.7-6.1); RDW 13.7 % (11.5-14.5); WBC 7.93 X1000 (4.8-10.8)
[2019-01-12 07:38] LABS: ALBUMIN 2.9 g/dL (3.5-5.0); CALCIUM 9.1 mg/dL (8.8-10.2); PHOSPHORUS 9.5 mg/dL (2.7-4.5); POTASSIUM 3.7 mmol/L (3.5-5.1)
[2019-01-12] MEDS: MUCOMYST 20% INH SCH ×2 (08:15→21:55)
[2019-01-12] MEDS: HUMULIN 70/30 SUBQ SCH ×2 (08:59→16:40)
[2019-01-12] MEDS: LACTULOSE PO SCH ×2 (08:59→21:38)
[2019-01-12] MEDS: MIRALAX PO SCH (08:59)
[2019-01-12] MEDS: COLACE PO SCH ×2 (08:59→21:38)
--- NOTE | 2019-01-12 13:29 | PROGRESS NOTE ---
DATE: 01/12/2019 SUBJECTIVE: Mr. Puri says he is a little stronger. He walked with some assistance today. He explained that he is not probably going to be eligible, will not be able to afford inpatient rehab or home health. OBJECTIVE: Temperature 97.4, pulse 92, respirations 14, blood pressure 118/76. Pupils are equal and round. Lungs are clear in all lung mckinley. Cardiovascular Examination: Regular rhythm and rate without murmur or S3. Abdomen is soft. Skin is warm and dry. ASSESSMENT AND PLAN: 1. Acute kidney injury. Really not seen any improvement. Continue present management. 2. Acute hypoxemic respiratory failure, which has improved. It is felt that this was secondary to volume overload. 3. Diabetic ketoacidosis, which has resolved. Continue to pattern sugars. He is on 70/30 insulin. 4. Rhabdomyolysis, resolved. 5. Thrombocytopenia, stable. 6. Acute pancreatitis, which has improved. 7. Fatty liver disease. 8. Continue gastrointestinal prophylaxis. REVIEW OF HIS ORDERS: I do not see any change at this time. Getting ceftriaxone 1 g daily, MiraLAX 17 g twice a day, lactulose 30 mL b.i.d., Nexium 40 mg a day. He is on 70/30 insulin twice a day. His blood sugars appear under good control at the present time. In regards to his acute kidney injury, went ahead and dialyzed him on the and pulled his Vas-Cath. Checked his labs. We will see if he has worsening without dialysis. cc: Lowell Zepeda MD
[2019-01-12] MEDS: ATARAX PO PRN ×2 (14:49→22:06)
--- NOTE | 2019-01-12 18:39 | NEPHROLOGY PROGRESS NOTE ---
DATE: 01/12/2019 SUBJECTIVE: Patient resting in bed. No complaints. OBJECTIVE: Vital: Blood pressure 98, respiratory rate 16, blood pressure 101/48. Intake 400 in balance. Output 300 mL. General: Middle-aged gentleman resting in bed. He is in no acute distress. HEENT: Normocephalic, atraumatic. PERRL. Neck: Supple, without JVD. Cardiovascular: Regular rate and rhythm. Pulmonary: Clear. Abdomen: Soft. Positive bowel sounds. : Voiding. Extremities: No clubbing, cyanosis. Trace edema. Integumentary: Skin warm and dry. LAB DATA: Sodium 138, potassium 3.7. CO2 20. Creatinine 6.0. ASSESSMENT AND PLAN: Acute kidney injury. Creatinine today is 6. His urine output is still oliguric. The patient is made n.p.o. this morning. We will discuss with Surgery regarding placing a tunnel catheter. Plan to dialyze after placement. Dialysis can wait until Wednesday if needed. Need to make arrangements for outpatient dialysis. Dictated by LAUREEN Wyatt for Parviz Ritter MD Face to face encounter, data reviewed, discussed with Tori Hamm on 01/12/19. I agree with the above assessment and plan of care. cc: Parviz Ritter MD [facility]
[2019-01-12] MEDS: ROCEPHIN 1 GM in NS 50 ML IV SCH (21:38)
[2019-01-13] MEDS: LACTULOSE PO SCH ×3 (01:50→21:33)
[2019-01-13] MEDS: MIRALAX PO SCH ×3 (01:50→21:33)
[2019-01-13] MEDS: DUONEB (A & A) INH SCH ×5 (04:18→20:16)
[2019-01-13] MEDS ORDERED: INSULIN PEN NEEDLES ONE (04:44)
[2019-01-13] MEDS: NEXIUM PO SCH (06:06)
[2019-01-13] MEDS: HUMULIN R SUBQ SCH ×4 (06:07→21:32)
[2019-01-13 07:53] LABS: ALBUMIN 2.9 g/dL (3.5-5.0); CALCIUM 8.6 mg/dL (8.8-10.2); CREATININE 4.6 mg/dL (0.7-1.2); PHOSPHORUS 8.2 mg/dL (2.7-4.5); POTASSIUM 3.4 mmol/L (3.5-5.1)
[2019-01-13 08:04] LABS: HEMATOCRIT 30.9 % (42.0-52.0); HEMOGLOBIN 10.4 g/dL (14.0-18.0); MCHC 33.7 g/dL (33-37); MCV 98.1 FL (81-99); MPV 11.8 FL (7.4-10.4); RBC 3.15 XMIL (4.7-6.1); RDW 13.4 % (11.5-14.5); WBC 6.98 X1000 (4.8-10.8)
[2019-01-13] MEDS: MUCOMYST 20% INH SCH ×2 (08:22→20:16)
[2019-01-13] MEDS: COLACE PO SCH ×2 (09:32→21:33)
[2019-01-13] MEDS: HUMULIN 70/30 SUBQ SCH ×2 (09:43→16:31)
[2019-01-13] MEDS: ATARAX PO PRN ×3 (09:43→21:31)
--- NOTE | 2019-01-13 15:44 | PROGRESS NOTE ---
DATE: 01/13/2019 Mr. Puri was just about to start his therapy. He is walking with assistance, getting a little better. He gets wore out pretty easy. He did, I think, make it a little over 100 feet. Temp 97.8 degrees, pulse 93, respirations 19, blood pressure 121/75. Pupils are equal and round. Lungs are clear in all lung mckinley. Cardiovascular regular rhythm and rate without murmur or S3. Abdomen is soft. Skin is warm and dry. Urine output was 800 mL. ASSESSMENT AND PLAN: 1. Acute kidney injury, not seeing much improvement. Creatinine is 4.6. Dr. Ritter is following. Creatinine did come down from 6 to 4.6. He is making urine, so hopefully this is a good sign. We did place a tunneled catheter and I think he was going to decide on dialysis today, so it looks like we will hold off on that. 2. General weakness, deconditioning. Continue physical therapy. 3. Acute hypoxemic respiratory failure, which is improved. 4. Diabetic ketoacidosis, resolved. 5. Rhabdomyolysis, resolved. 6. Thrombocytopenia, which appears stable. Platelet count has come up to 239,000. That is encouraging. So continue to work on his strength. Aware he has got fatty liver disease. Continue physical therapy. He is a private pay so he cannot afford home health or rehab. Continue present orders. cc: Lowell Zepeda MD
--- NOTE | 2019-01-13 20:36 | NEPHROLOGY PROGRESS NOTE ---
DATE: 01/13/2019 SUBJECTIVE: Patient is resting in bed. Continues to have marginal urine output. OBJECTIVE: Vital Signs: Temperature 97.8 degrees, pulse 93, respiratory rate 19, blood pressure 121/75. Intake 500 mL, output 525 mL. General: This is a middle-aged gentleman, sitting up in bed. He is awake and alert. He is in no acute distress. HEENT: Normocephalic, atraumatic. CORDELIA. Neck: Supple. No JVD. Cardiovascular: Regular rate and rhythm. Pulmonary: He is clear bilaterally. No increased work of breathing. Abdomen: Soft. Positive bowel sounds. Genitourinary: Voiding. Extremities: No clubbing, cyanosis. Continues with trace lower extremity. Integumentary: Skin remains warm and dry. LABORATORY DATA: WBC 6.9, hemoglobin 10.4. Sodium 139, potassium 3.4, CO2 of 19, creatinine 4.6 (6.0, 7.7). ASSESSMENT AND PLAN: Acute kidney injury with inadequate urine output. The patient does appear to have some improvement in his creatinine. However, his urine output remains low to consider this recovery. We will therefore have a tunneled catheter placed. We will initiate his dialysis. We do anticipate that in the future, he will achieve recovery, but he has not thus far. Once he is stable from a general standpoint, he can be discharged at the discretion of the primary. We will make arrangements for outpatient dialysis for the immediate future. Dictated by LAUREEN Wyatt for Parviz Ritter MD Face to face encounter, data reviewed, discussed with Tori Hamm on 01/13/19. I agree with the above assessment and plan of care. cc: Parviz Ritter MD [facility]
[2019-01-13] MEDS: ROCEPHIN 1 GM in NS 50 ML IV SCH (21:31)
[2019-01-14] MEDS: DUONEB (A & A) INH SCH ×5 (04:06→20:03)
[2019-01-14 06:27] LABS: HEMATOCRIT 30.4 % (42.0-52.0); HEMOGLOBIN 10.1 g/dL (14.0-18.0); MCH 32.5 PG (27-31); MCHC 33.2 g/dL (33-37); MCV 97.7 FL (81-99); MPV 10.6 FL (7.4-10.4); RBC 3.11 XMIL (4.7-6.1); RDW 13.3 % (11.5-14.5); WBC 6.23 X1000 (4.8-10.8)
[2019-01-14] MEDS: HUMULIN R SUBQ SCH ×4 (06:33→21:15)
[2019-01-14] MEDS: NEXIUM PO SCH (06:33)
[2019-01-14 06:59] LABS: CALCIUM 8.5 mg/dL (8.8-10.2); CREATININE 3.3 mg/dL (0.7-1.2); PHOSPHORUS 6.5 mg/dL (2.7-4.5); POTASSIUM 3.7 mmol/L (3.5-5.1)
[2019-01-14] MEDS: MUCOMYST 20% INH SCH ×2 (07:46→20:03)
[2019-01-14] MEDS: HUMULIN 70/30 SUBQ SCH ×2 (08:15→17:43)
[2019-01-14] MEDS: MIRALAX PO SCH ×2 (08:18→21:12)
[2019-01-14] MEDS: COLACE PO SCH ×2 (08:18→21:12)
[2019-01-14] MEDS: LACTULOSE PO SCH ×2 (08:18→21:12)
--- NOTE | 2019-01-14 13:19 | PROGRESS NOTE ---
DATE: 01/14/2019 SUBJECTIVE: Mr. Puri is getting stronger. I think he is encouraged. He has been able to walk a little further. OBJECTIVE: Vital Signs: Temperature is 98.3 degrees, pulse 95, respirations 18, blood pressure 115/66. HEENT: Pupils are equal and round. Lungs: Clear in all lung mckinley. Cardiovascular: Regular rhythm and rate without murmur or S3. Abdomen: Soft. Skin: Warm and dry. Urine output was 800 mL. ASSESSMENT AND PLAN: 1. Acute kidney injury. We have seen some improvement. His creatinine has come down to 3.3. Increased urine output that is encouraging. 2. Diabetes mellitus type 2. Blood sugar is under good control. He presented with diabetic ketoacidosis, I believe. 3. General weakness and deconditioning. He has a tunneled catheter in place. Hopefully in the future, he will continue to recover. He is not eligible to go to rehab so I am hoping to get him home, continue his physical therapy and we will see how he does. cc: Lowell Zepeda MD
--- NOTE | 2019-01-14 14:41 | NEPHROLOGY PROGRESS NOTE ---
DATE: 01/14/2019 TIME SEEN: 10:00 AM. SUBJECTIVE: Patient resting in bed. No issues overnight. His urine output has picked up tremendously. OBJECTIVE: Vital Signs: Temperature 98.3 degrees, pulse 83, respiratory rate 16, blood pressure 115/66. Intake 350 mL. Output 1.4 L. General: This is a middle-aged gentleman sitting up in bed. Awake and alert, no acute distress. HEENT: Normocephalic, atraumatic. CORDELIA. Oral mucosa moist. Neck: Is supple without JVD. Cardiovascular: Regular rate and rhythm. Pulmonary: Clear. Abdomen: Soft. Positive bowel sounds. : Voiding. Extremities: No clubbing, cyanosis. No edema today. Integumentary: Warm and dry. LAB DATA: WBC of 6.2, hemoglobin 10, sodium 141, potassium 3.7, CO2 20, creatinine is 3.3 (4.6). ASSESSMENT AND PLAN: Acute kidney injury now with initial recovery. His urine output has picked up tremendously over the last 24 hours and creatinine has dropped. The patient will not need further dialysis. We will continue to monitor his labs while in the hospital. We will need to follow up with him in the office as an outpatient 2 to 3 weeks after discharge with labs in the interim. We will follow his labs along in the hospital as long as he remains admitted. Dictated by LAUREEN Wyatt for Parviz Ritter MD cc: Parviz Ritter MD [facility]
[2019-01-14] MEDS: ATARAX PO PRN (21:14)
[2019-01-14] MEDS: ROCEPHIN 1 GM in NS 50 ML IV SCH (21:15)
[2019-01-15] MEDS: DUONEB (A & A) INH SCH ×4 (05:30→15:44)
[2019-01-15] MEDS: NEXIUM PO SCH (06:04)
[2019-01-15] MEDS: HUMULIN R SUBQ SCH ×4 (06:04→20:43)
[2019-01-15 06:59] LABS: ALBUMIN 3.2 g/dL (3.5-5.0); CALCIUM 8.1 mg/dL (8.8-10.2); POTASSIUM 3.3 mmol/L (3.5-5.1)
[2019-01-15 07:45] LABS: HEMOGLOBIN 10.4 g/dL (14.0-18.0); MCH 32.9 PG (27-31); MCHC 32.5 g/dL (33-37); MCV 101.3 FL (81-99); MPV 10.8 FL (7.4-10.4); RBC 3.16 XMIL (4.7-6.1); RDW 13.3 % (11.5-14.5); WBC 5.71 X1000 (4.8-10.8)
[2019-01-15] MEDS: MUCOMYST 20% INH SCH (08:04)
[2019-01-15] MEDS: MIRALAX PO SCH ×3 (08:30→20:44)
[2019-01-15] MEDS: COLACE PO SCH ×3 (08:30→20:43)
[2019-01-15] MEDS: LACTULOSE PO SCH ×2 (08:30→20:44)
[2019-01-15] MEDS: HUMULIN 70/30 SUBQ SCH ×2 (08:30→17:16)
--- NOTE | 2019-01-15 10:22 | NEPHROLOGY PROGRESS NOTE ---
DATE: 01/15/2019 SUBJECTIVE: Patient is sitting up in bed. No complaints. OBJECTIVE: Vital Signs: Temperature 98 degrees, pulse 100, respiratory rate 16, blood pressure 107/71. Intake 410 mL. Output 1.1 L. The patient states he has already voided greater than 700 mL this morning. Physical Examination: General: Middle-aged gentleman resting in bed. He is awake and alert. He is in no acute distress. HEENT: Normocephalic, atraumatic. Conjunctivae are pink. He has glasses on. Oral mucosa moist. Neck: Supple. There is no JVD. Cardiovascular: Regular rate and rhythm. Pulmonary: Clear bilaterally. Abdomen: Soft. Positive bowel sounds. : Voiding. Extremities: No clubbing, cyanosis, or edema. Integumentary: Skin is warm and dry. Laboratory Data: Potassium 3.3, creatinine 2.0 (3.3, 4.6). ASSESSMENT AND PLAN: Acute kidney injury, now with recovery in place. The patient's urine output continues to be excellent. We have no changes to his current regimen. He does not need another dialysis. He can have his physical therapy and discharged at the discretion of the primary. Dictated by LAUREEN Wyatt for Parviz Ritter MD cc: Parviz Ritter MD
--- NOTE | 2019-01-15 13:45 | PROGRESS NOTE ---
DATE: 01/15/2019 SUBJECTIVE: Mr. Puri feels like he is a little stronger. He is still very shaky, weak on his feet. He has no insurance so he will need to go home. He needs get a walker. OBJECTIVE: Vital Signs: He remains afebrile. Temperature 98.8 degrees, pulse 90, respirations 18, blood pressure 107/71. HEENT: Pupils are equal and round. Lungs: Clear in all lung mckinley. Cardiovascular: Regular rhythm and rate without murmur or S3. Abdomen: Soft. Skin: Warm and dry. LABORATORY DATA: Urine output is 1600 mL. Blood sugar 204, 184, 147. ASSESSMENT AND PLAN: 1. Acute kidney injury, now in recovery phase. Urine output looks excellent. Electrolytes and volume status look good. 2. Diabetes mellitus type 2. Continue sliding scale. Sugar is under good control. 3. General weakness and deconditioning. Continue his physical therapy. I do not see any change in his orders at this point. Continue to try and get him stronger so he can go home. We will repeat another chest x-ray in the morning. cc: Lowell Zepeda MD
--- NOTE | 2019-01-15 14:35 | Diag Imaging Result Doc PS360 ---
EXAM: CHEST-2 VIEWS HISTORY: sob TECHNIQUE: Chest two views COMPARISON: 01/08/2019 FINDINGS: The lungs are well expanded. The heart is not enlarged. There are sternal wires and a right jugular line. The vessels are not distended. There are no infiltrates. No pleural effusions. IMPRESSION: Continued interval improvement. Electronically signed by Gómez Tadeo 01/15/2019 2:33 PM
[2019-01-15] MEDS: ATARAX PO PRN (20:43)
[2019-01-15] MEDS: ROCEPHIN 1 GM in NS 50 ML IV SCH (20:43)
[2019-01-16] MEDS: DUONEB (A & A) INH SCH ×2 (03:50→11:30)
[2019-01-16] MEDS: MUCOMYST 20% INH SCH ×2 (03:50→11:29)
[2019-01-16] MEDS: HUMULIN R SUBQ SCH ×4 (06:17→20:52)
[2019-01-16] MEDS: NEXIUM PO SCH (06:18)
[2019-01-16] MEDS ORDERED: DUONEB (A & A) INH PRN (07:42)
[2019-01-16] MEDS: COLACE PO SCH ×2 (07:59→20:52)
[2019-01-16] MEDS: HUMULIN 70/30 SUBQ SCH ×2 (08:00→17:13)
[2019-01-16] MEDS: MIRALAX PO SCH ×2 (08:00→20:53)
[2019-01-16] MEDS: LACTULOSE PO SCH ×2 (08:00→20:53)
[2019-01-16 08:28] LABS: CALCIUM 8.5 mg/dL (8.8-10.2); CREATININE 1.7 mg/dL (0.7-1.2); POTASSIUM 3.4 mmol/L (3.5-5.1)
--- NOTE | 2019-01-16 13:16 | PROGRESS NOTE ---
DATE: 01/16/2019 SUBJECTIVE: Mr. Puri is doing better. He wanted to know if he could maybe go home tomorrow. He is still a little shaky on his feet. He lives alone and he has no insurance. OBJECTIVE: Vital Signs: Temperature 98.2 degrees, pulse 92, respirations 18, blood pressure 120/75. HEENT: Pupils are equal and round. Lungs: Clear in all lung mckinley. Cardiovascular: Regular rate without murmur or S3. Abdomen: Soft. Skin: Warm and dry. LABORATORY DATA: His labs from yesterday reviewed. Hematocrit 32, hemoglobin 10, platelet count 185,000. Chemistry: Sodium 142, potassium 3.4, chloride 104, BUN 42, creatinine 1.7. His creatinine has come down nicely from 4.6. ASSESSMENT AND PLAN: 1. Acute kidney injury which recovery phase doing well. Electrolytes and volume status look good. 2. Diabetes mellitus type 2. Blood sugars appear under good control. 3. General weakness and deconditioning. Continue physical therapy. He lives alone. He would like to try and go home tomorrow. I will see if I can get things ready for him to go in the morning. I think we can stop his ceftriaxone. cc: Lowell Zepeda MD
--- NOTE | 2019-01-16 15:06 | NEPHROLOGY PROGRESS NOTE ---
DATE: 01/16/2019 TIME SEEN: 0655. SUBJECTIVE: Mr. Puri is resting quietly in bed. States that he is feeling well. He has no complaints. OBJECTIVE: Vital signs: His last temperature 98 degrees, blood pressure 127/73, heart rate 88, respirations 18. He is on room air. Last recorded saturation 97%. He has had 1470 in, 1200 out to void. Labs: Sodium 142, potassium 3.4, chloride 104, CO2 21, BUN 42, creatinine 1.7, glucose is 130, anion gap 17, calcium 8.5. The patient had a previous hemoglobin of 10.4. PHYSICAL EXAMINATION: General: This is a 58-year-old white male. He is resting quietly in bed. He appears chronically ill, though no acute distress. Skin: Warm and dry. HEENT: Normocephalic, atraumatic. Conjunctiva is pale pink. He has CORDELIA. Mucous membranes are dry. Neck: Supple. Trachea midline. No JVD. Cardiovascular: Regular rate and rhythm. Lungs: Clear to auscultation bilaterally. Equal excursion. On room air. Abdomen: Soft, nontender. Positive bowel sounds. Genitourinary: Patient is voiding, adequate amount. Extremities: Have no edema. No clubbing or cyanosis. Integumentary: Warm and dry. ASSESSMENT AND PLAN: 1. Acute kidney injury. The patient has recovered. Adequate urine output documented. BUN and creatinine have responded nicely. No indications for further intervention. We will continue to follow with labs. 2. Electrolytes, acid-base balance, and anemia. These are all stable. I would like to thank you for allowing us to follow with this patient. Dictated by LAUREEN Perkins for Parviz Ritter MD Face to face encounter, data reviewed, discussed with Alex Palafox on 01/16/19. I agree with the above assessment and plan of care. cc: LAUREEN Perkins MD [facility]
[2019-01-17] MEDS: NEXIUM PO SCH (06:11)
[2019-01-17] MEDS: HUMULIN R SUBQ SCH ×4 (06:34→20:37)
[2019-01-17 08:16] LABS: AGAP 14; BUN 31 mg/dL (8-22); CALCIUM 8.4 mg/dL (8.8-10.2); CHLORIDE 106 mmol/L (98-107); COSMO 291; CREATININE 1.2 mg/dL (0.7-1.2); ESTIMATED GFR > 60; GLUCOSE 127 mg/dL (70-104); PHOSPHORUS 3.2 mg/dL (2.7-4.5); POTASSIUM 3.7 mmol/L (3.5-5.1); SODIUM 142 mmol/L (136-145); TCO2 22 mmol/L (25-35)
[2019-01-17] MEDS ORDERED: INSULIN PEN NEEDLES ONE (08:19)
[2019-01-17] MEDS: COLACE PO SCH ×2 (08:25→20:37)
[2019-01-17] MEDS: LACTULOSE PO SCH ×2 (08:26→20:37)
[2019-01-17] MEDS: MIRALAX PO SCH ×2 (08:26→20:37)
[2019-01-17] MEDS: HUMULIN 70/30 SUBQ SCH ×2 (08:27→17:24)
--- NOTE | 2019-01-17 12:23 | NEPHROLOGY PROGRESS NOTE ---
DATE: 01/17/2019 SUBJECTIVE: Mr. Puri is resting quietly in bed. He has no complaints. VITAL SIGNS: His most recent vital signs show temperature 98.2 degrees, blood pressure 113/81, heart rate 85, respirations are 20. He is currently on room air. Last recorded saturation 99%. He has had 1170 in, he has had 1250 out. LABS: Sodium is 142, potassium 3.7, chloride 106 CO2 is 22, BUN is 31, creatinine 1.2, glucose is 127. The patient's anion gap is 14, calcium 8.4, phosphorus 3.2, albumin is 3. The patient has a previous hemoglobin of 10.4 on the 01/15/2019. PHYSICAL EXAMINATION: General: This is a 58-year-old white male resting quietly in bed. He appears in no acute distress. Skin: Warm and dry. HEENT: Normocephalic, atraumatic. Conjunctivae is pale. He has PERRL. Mucous membranes are dry. Neck: Supple. Trachea midline. No JVD. Cardiovascular: Regular rate and rhythm without murmur or gallop. Lungs: Clear to auscultation bilaterally. Equal excursion on room air. Abdomen: Soft, nontender, positive bowel sounds. Genitourinary: The patient is voiding adequate amount documented. Extremities: No edema, no clubbing or cyanosis. Integumentary: Warm and dry. Neurological: Alert and oriented x3. ASSESSMENT AND PLAN: Acute kidney injury. The patient has had full recovery. BUN and creatinine are at 31 and a creatinine of 1.2. Adequate urine output is documented. We will sign off at this time and remain available if indicated. We will plan for follow up in our office in 2 to 3 weeks after discharge with labs. I would like to thank you for allowing us to follow with this patient. Dictated by LAUREEN Perkins for Parviz Ritter MD Face to face encounter, data reviewed, discussed with Alex Palafox on 01/17/19. I agree with the above assessment and plan of care. cc: LAUREEN Perkins MD [facility]
--- NOTE | 2019-01-17 12:31 | PROGRESS NOTE ---
DATE: 01/17/2019 SUBJECTIVE: The patient is resting comfortably in bed. He states that he still feels weak when he gets up to walk. He has been ambulating with assistance with physical therapy the last several days. OBJECTIVE: Vital Signs: Temperature 97.9 degrees, blood pressure 131/85, heart rate 88, respirations 14, and O2 saturation 99% on room air. General: This is a morbidly obese male lying in bed in no acute distress. Heart: S1, S2 normal. Regular rate and rhythm. Lungs: Clear to auscultation bilaterally. No wheezing. No rales. No rhonchi. Abdomen: Positive bowel sounds. Soft, nontender, and nondistended. Extremities: No edema. No cyanosis. Neurologic: The patient is alert and oriented x4. LABORATORY: Sodium 142, potassium 3.7, chloride 106, CO2 22, BUN 31, creatinine 1.2, glucose 127, and albumin 3. ASSESSMENT AND PLAN: 1. Acute hypoxemic respiratory failure. Resolved. 2. Pulmonary edema. Resolved. 3. Acute kidney injury. Resolved. 4. Acute pancreatitis. Resolved. 5. Fatty liver disease. Aware. 6. Diabetic ketoacidosis. Resolved. 7. Insulin-dependent diabetes mellitus. Continue on 70/30. 8. Hypertension. Controlled. 9. Disposition. The patient has been working with physical therapy for the last several days. We will continue with physical therapy for another day in the hospital. The patient should be stable for discharge home tomorrow. [facility] has made arrangements for the patient to obtain a walker for use at home. cc: Tameka Richards MD
[2019-01-18] MEDS: HUMULIN R SUBQ SCH ×2 (06:14→11:30)
[2019-01-18] MEDS: NEXIUM PO SCH (06:15)
[2019-01-18] MEDS: LACTULOSE PO SCH (08:06)
[2019-01-18] MEDS: COLACE PO SCH (08:06)
[2019-01-18] MEDS: MIRALAX PO SCH (08:06)
[2019-01-18] MEDS: HUMULIN 70/30 SUBQ SCH (08:18)
[2019-01-18 09:25] LABS: AGAP 13; ALBUMIN 3.4 g/dL (3.5-5.0); BUN 22 mg/dL (8-22); CALCIUM 8.5 mg/dL (8.8-10.2); CHLORIDE 107 mmol/L (98-107); COSMO 291; CREATININE 1.2 mg/dL (0.7-1.2); ESTIMATED GFR > 60; GLUCOSE 119 mg/dL (70-104); PHOSPHORUS 3.5 mg/dL (2.7-4.5); POTASSIUM 3.9 mmol/L (3.5-5.1); SODIUM 144 mmol/L (136-145); TCO2 24 mmol/L (25-35)
[2019-01-18 11:53] VITALS: BP 136/84
--- NOTE | 2019-01-22 09:59 | DISCHARGE SUMMARY ---
ADMISSION DATE: 12/30/2018 DISCHARGE DATE: 01/18/2019 FINAL DISCHARGE DIAGNOSES: 1. Severe diabetic ketoacidosis. 2. Acute kidney injury requiring hemodialysis. 3. Rhabdomyolysis. 4. Metabolic encephalopathy. 5. Acute pancreatitis. 6. Thrombocytopenia. 7. Fatty liver disease. 8. Hypernatremia. 9. Insulin dependent diabetes mellitus. 10. Morbid obesity. 11. Urinary tract infection. 12. Volume overload. 13. Pulmonary edema. 14. Coronary artery disease CONSULTATIONS: 1. Pulmonary consultation with Dr. Galeas. 2. Nephrology consultation with Dr. Ritter. 3. Infectious Disease consultation with Dr. Alvarez. 4. General Surgery consultation with Dr. Jackman. 5. Hematology consultation with Dr. Packer. 6. GI consultation with Dr. Vinson. HOSPITAL COURSE: Mr. Puri is a 58-year-old male with a history of obesity, hypertension, diabetes mellitus, and coronary artery disease, who was brought to the ER, unresponsive. On admission, the patient was noted to be in severe DKA and rhabdomyolysis, as well as renal failure. The patient was admitted to the Hospitalist Service, and admitted to the ICU. The patient was started on aggressive IV fluid hydration, as well as the DKA protocol. The patient was also noted to be in acute pancreatitis as well with a lipase of 2191. The patient, despite aggressive IV fluid hydration and the insulin drip, remained in a metabolic acidosis. Nephrology was consulted. The patient was continued on fluids. However, he became volume overloaded and the renal function worsened and the patient became anuric as well as volume overloaded. General Surgery was consulted for a dialysis catheter to be placed, and the patient was started on hemodialysis. Slowly over the course of the hospitalization, the patient's acid-base improved after dialysis was initiated, as well as the volume status. The patient's mental status also started to improve once dialysis was started. GI was also consulted, and Pulmonology. An abdominal ultrasound was done that revealed fatty liver disease. The patient continued to improve clinically, and was ultimately transferred out of the ICU to the medical floor. The patient required a few more dialysis sessions, and eventually he started making urine again. The patient's dialysis catheter was removed, and his renal function was monitored closely. The renal function continued to improve clinically, and eventually normalized. The patient was seen by Physical Therapy, and his ability to walk improved slowly over the course of the hospitalization. Since the patient did not have insurance, he did not qualify for an inpatient rehab stay. The patient was also started on long-acting insulin for his diabetes, and he was encouraged to follow up with his primary care physician upon discharge from the hospital. The patient was ultimately discharged from the hospital on 01/18/2019. DISCHARGE MEDICATIONS: 1. Humulin 70/30, 20 units subcutaneously twice a day. 2. Lisinopril 5 mg p.o. daily. 3. Aspirin 81 mg p.o. daily. DISCHARGE DIET: An 1800 ADA diet. ACTIVITY: As tolerated. FOLLOWUP INSTRUCTIONS: The patient will need to follow up with his primary care physician in 1 week. cc: Tameka Richards MD [facility]
== END 2019-01-18 17:58 | disposition home or self-care (01) | DRG 637 ==
LOC: SUPCPDRO → EDBD → P.ED 19:37 → ICU 21:46 → EDBD 21:46 → SUATTDRO 21:46 → 1N 01-06 12:10
PROVIDERS: ATTEND Internal Medicine